=== PATIENT | male | born 1960 | race Caucasian/White ===

== ENCOUNTER 2017-02-05 16:09 | Inpatient (IN) | payer MEDICARE, OTHER ==
[2017-02-05] MEDS ORDERED: HYDROmorphone 1 MG/ML 1 ML SYRINGE IVP STA ×2 (17:04→18:59)
[2017-02-05] MEDS ORDERED: SODIUM CHLORIDE 0.9% 1,000 ML IV STA (17:04)
--- NOTE | 2017-02-05 17:16 | ED ---
General Adult HPI - General Source: patient, RN notes reviewed Mode of arrival: wheelchair Limitations: no limitations <Cathy Dow - Last Filed: 02/05/17 18:55> <Timmy Chen - Last Filed: 02/05/17 19:01> - General Chief complaint: Urogenital Stated complaint: Abd/Groin Pain Time Seen by Provider: 02/05/17 16:47 - History of Present Illness Initial comments: 56 yo male presents to the ER with cc of testicular pain. Patient states this started 2 nights ago. Patient states this progressed to becoming more swollen and red. Patient states he went to his family care doctor he was referred to the emergency department. Patient states it is painful. Patient states he was moving something heavy prior to this starting. Patient does admit to a history of back surgery was informed that he will be at increased risk for hernia. They were concerned due to the increased redness and swelling. That they should be seen.Patient denies any recent fever, chills, shortness of breath, chest pain, back pain, abdominal pain, nausea vomiting, numbness or tingling, dysuria or hematuria, constipation or diarrhea, headaches or visual changes, or any other current symptoms. (Cathy Dow) - Related Data Home Medications Medication Instructions Recorded Confirmed HYDROcodone/APAP 5-325MG [[place] 1 tab PO TID PRN 03/27/14 02/05/17 5-325] Montelukast [Singulair] 10 mg PO DAILY 01/07/15 02/05/17 Lisinopril [Zestril] 10 mg PO DAILY 05/22/16 02/05/17 amLODIPine [Norvasc] 10 mg PO DAILY 05/23/16 02/05/17 Tamsulosin HCl [Flomax] 0.4 mg PO DAILY 06/12/16 02/05/17 Gabapentin 600 mg PO Q8H 02/05/17 02/05/17 Venlafaxine HCl ER [Effexor XR] 75 mg PO HS 02/05/17 02/05/17 traMADol HCl [Ultram] 50 - 100 mg PO Q6H PRN 02/05/17 02/05/17 Allergies Allergy/AdvReac Type Severity Reaction Status Date / Time prednisone Allergy Unknown Verified 02/05/17 17:08 azithromycin [From Zithromax] AdvReac yeast Verified 02/05/17 17:08 infection in throat Review of Systems ROS Other: All systems not noted in ROS Statement are negative. <Cathy Dow - Last Filed: 02/05/17 18:55> ROS Other: All systems not noted in ROS Statement are negative. <Timmy Chen - Last Filed: 02/05/17 19:01> ROS Statement: Those systems with pertinent positive or pertinent negative responses have been documented in the HPI. Past Medical History Past Medical History: Hypertension, Osteoarthritis (OA), Sleep Apnea/CPAP/BIPAP Additional Past Medical History / Comment(s): back pain, bulging discs in neck, ddd, spinal stenosis,scoliosis.shingles 5 years ago,doesn't use his cpap machine.neuropathy. History of Any Multi-Drug Resistant Organisms: None Reported Past Surgical History: Orthopedic Surgery, Tonsillectomy Additional Past Surgical History / Comment(s): R shoulder surgery, R knee surgery x 2, sinus surg.lt shoulder, injections to neck/back, radio frequency tx. Past Anesthesia/Blood Transfusion Reactions: Previous Problems w/ Anesthesia Additional Past Anesthesia/Blood Transfusion Reaction / Comment(s): had panic attack when waking up from last shoulder surg., was told it was because of nerve block Past Psychological History: Depression Additional Psychological History / Comment(s): lives with his radha tristan and his mother who has dementia. pt has had several recnt family members pass away has some depression/sadness over this. Smoking Status: Never smoker Past Alcohol Use History: None Reported Additional Past Alcohol Use History / Comment(s): occ smokes a cigarello Past Drug Use History: None Reported - Past Family History Mother Family Medical History: Dementia, Hypertension Additional Family Medical History / Comment(s): irregular heart beat, neuropathy Father Family Medical History: Myocardial Infarction ([place]) <Cathy Dow - Last Filed: 02/05/17 18:55> General Exam Limitations: no limitations General appearance: alert, in no apparent distress ENT exam: Present: normal exam, mucous membranes moist Neck exam: Present: normal inspection. Absent: tenderness, meningismus, lymphadenopathy Respiratory exam: Present: normal lung sounds bilaterally. Absent: respiratory distress, wheezes, rales, rhonchi, stridor Cardiovascular Exam: Present: regular rate, normal rhythm, normal heart sounds. Absent: systolic murmur, diastolic murmur, rubs, gallop, clicks GI/Abdominal exam: Present: soft, normal bowel sounds. Absent: distended, tenderness, guarding, rebound, rigid exam: Present: testicular tenderness, scrotal swelling, vertical testicular lie, circumcision, other (Testicle on the left is increased in size warm red and swollen) Neurological exam: Present: alert, oriented X3 Psychiatric exam: Present: normal affect, normal mood <Cathy Dow - Last Filed: 02/05/17 18:55> Medical Decision Making - Lab Data Result diagrams: 02/05/17 17:07 02/05/17 17:07 <Cathy Dow - Last Filed: 02/05/17 18:55> - Lab Data Result diagrams: 02/05/17 17:07 02/05/17 17:07 <Timmy Chen - Last Filed: 02/05/17 19:01> - Medical Decision Making 56-year-old male presents emergency Department chief complaint testicular pain. At this time the patient does appear to be sepsis due to a scrotal cellulitis. This time we will start patient on antibiotics. At this time we will consult urology and have the patient admitted to Dr. Mulligan. This was discussed the patient is in agreement with the plan. (Cathy Dow) Patient reevaluated by myself, Dr. Chen. Patient resting comfortably in bed. Patient complains of testicular discomfort. Patient states gradual onset over 2 -3 days. Patient has moderate scrotal swelling with erythema and moderate tenderness. No signs of lesions. No subcutaneous emphysema. Case was discussed in detail with Dr. Mulligan who did see the patient earlier and will admit his patient. Case also discussed in detail with Dr. Taylor who will consult. He recommends gentamicin and ampicillin or Unasyn. Patient does meet sepsis criteria diagnosed at 650 p.m. (Timmy Chen) - Lab Data Lab Results 02/05/17 02/05/17 02/05/17 Range/Units 17:07 17: 17: WBC 25.2 H* (3.8-10.6) k/uL RBC 4.65 (4.30-5.90) m/uL Hgb 13.8 (13.0-17.5) gm/dL Hct 41.5 (39.0-53.0) % MCV 89.4 (80.0-100.0) fL MCH 29.7 (25.0-35.0) pg MCHC 33.2 (31.0-37.0) g/dL RDW 12.7 (11.5-15.5) % Plt Count 349 (150-450) k/uL Neutrophils % (Manual) 85.0 % Lymphocytes % (Manual) 5.5 % Monocytes % (Manual) 9.0 % Eosinophils % (Manual) 0.5 % Neutrophils # (Manual) 21.4 H (1.3-7.7) k/uL Lymphocytes # (Manual) 1.4 (1.0-4.8) k/uL Monocytes # (Manual) 2.3 H (0-1.0) k/uL Eosinophils # (Manual) 0.1 (0-0.7) k/uL Nucleated RBCs 0 (0-0) /100 WBC Manual Slide Review Performed RBC Morphology Normal Sodium 137 (137-145) mmol/L Potassium 4.3 (3.5-5.1) mmol/L Chloride 104 (98-107) mmol/L Carbon Dioxide 25 (22-30) mmol/L Anion Gap 8 mmol/L BUN 10 (9-20) mg/dL Creatinine 0.80 (0.66-1.25) mg/dL Est GFR (MDRD) Af Amer >60 (>60 ml/min/1.73 sqM) Est GFR (MDRD) Non-Af >60 (>60 ml/min/1.73 sqM) Glucose 108 H (74-99) mg/dL Plasma Lactic Acid Andres 1.7 (0.7-2.0) mmol/L Calcium 9.0 (8.4-10.2) mg/dL Total Bilirubin 1.4 H (0.2-1.3) mg/dL AST 19 (17-59) U/L ALT 29 (21-72) U/L Alkaline Phosphatase 94 (38-126) U/L Total Protein 6.8 (6.3-8.2) g/dL Albumin 3.8 (3.5-5.0) g/dL Urine Color Urine Appearance (Clear) Urine pH (5.0-8.0) Ur Specific Anna (1.001-1.035) Urine Protein (Negative) Urine Glucose (UA) (Negative) Urine Ketones (Negative) Urine Blood (Negative) Urine Nitrite (Negative) Urine Bilirubin (Negative) Urine Urobilinogen (<2.0) mg/dL Ur Leukocyte Esterase (Negative) Urine RBC (0-5) /hpf Urine WBC (0-5) /hpf Ur Squamous Epith Cells (0-4) /hpf Amorphous Sediment (None) /hpf Urine Mucus (None) /hpf 02/05/17 Range/Units 17:15 WBC (3.8-10.6) k/uL RBC (4.30-5.90) m/uL Hgb (13.0-17.5) gm/dL Hct (39.0-53.0) % MCV (80.0-100.0) fL MCH (25.0-35.0) pg MCHC (31.0-37.0) g/dL RDW (11.5-15.5) % Plt Count (150-450) k/uL Neutrophils % (Manual) % Lymphocytes % (Manual) % Monocytes % (Manual) % Eosinophils % (Manual) % Neutrophils # (Manual) (1.3-7.7) k/uL Lymphocytes # (Manual) (1.0-4.8) k/uL Monocytes # (Manual) (0-1.0) k/uL Eosinophils # (Manual) (0-0.7) k/uL Nucleated RBCs (0-0) /100 WBC Manual Slide Review RBC Morphology Sodium (137-145) mmol/L Potassium (3.5-5.1) mmol/L Chloride (98-107) mmol/L Carbon Dioxide (22-30) mmol/L Anion Gap mmol/L BUN (9-20) mg/dL Creatinine (0.66-1.25) mg/dL Est GFR (MDRD) Af Amer (>60 ml/min/1.73 sqM) Est GFR (MDRD) Non-Af (>60 ml/min/1.73 sqM) Glucose (74-99) mg/dL Plasma Lactic Acid Andres (0.7-2.0) mmol/L Calcium (8.4-10.2) mg/dL Total Bilirubin (0.2-1.3) mg/dL AST (17-59) U/L ALT (21-72) U/L Alkaline Phosphatase (38-126) U/L Total Protein (6.3-8.2) g/dL Albumin (3.5-5.0) g/dL Urine Color Yellow Urine Appearance Cloudy (Clear) Urine pH 6.0 (5.0-8.0) Ur Specific Anna 1.026 (1.001-1.035) Urine Protein 1+ H (Negative) Urine Glucose (UA) Negative (Negative) Urine Ketones Negative (Negative) Urine Blood Moderate H (Negative) Urine Nitrite Negative (Negative) Urine Bilirubin Negative (Negative) Urine Urobilinogen 2.0 (<2.0) mg/dL Ur Leukocyte Esterase Moderate H (Negative) Urine RBC 18 H (0-5) /hpf Urine WBC 87 H (0-5) /hpf Ur Squamous Epith Cells 2 (0-4) /hpf Amorphous Sediment Rare H (None) /hpf Urine Mucus Many H (None) /hpf Disposition Time of Disposition: 18:49 Decision Date: 02/05/17 Decision Time: 18:49 <Cathy Dow - Last Filed: 02/05/17 18:55> <Timmy Chen - Last Filed: 02/05/17 19:01> Clinical Impression: Sepsis, Cellulitis of scrotum, Hydrocele in adult, UTI (urinary tract infection ) Disposition: ADMITTED IP TO THIS HOSP Condition: Stable Referrals: Nathaniel Mulligan MD [Primary Care Provider] - 1-2 days
[2017-02-05 17:29] LABS: CH 29.7; CHCM 33.3; HCT 41.5 % (39.0-53.0); HDW 2.19; HGB 13.8 gm/dL (13.0-17.5); MCH 29.7 pg (25.0-35.0); MCHC 33.2 g/dL (31.0-37.0); MCV 89.4 fL (80.0-100.0); Mean Platelet Volume 6.6; RBC 4.65 m/uL (4.30-5.90); RDW 12.7 % (11.5-15.5); WBC (Perox) 25.28
[2017-02-05 17:34] LABS: WBC 25.2 k/uL (3.8-10.6)
[2017-02-05 17:38] LABS: ALT 29 U/L (21-72); AST 19 U/L (17-59); Alkaline Phosphatase 94 U/L (38-126); Anion Gap 8 mmol/L; Blood Urea Nitrogen 10 mg/dL (9-20); Carbon Dioxide 25 mmol/L (22-30); Chloride 104 mmol/L (98-107); Glucose 108 mg/dL (74-99); Non-African American GFR(MDRD) >60 (>60 ml/min/1.73 sqM); Potassium 4.3 mmol/L (3.5-5.1); Sodium 137 mmol/L (137-145); Total Bilirubin 1.4 mg/dL (0.2-1.3); Total Protein 6.8 g/dL (6.3-8.2)
[2017-02-05 17:46] LABS: Amorphous Sediment,Urine Rare /hpf; Appearance,Urine Cloudy (Clear); Bilirubin,Urine Negative (Negative); Glucose,Urine (UA) Negative (Negative); Ketones,Urine Negative (Negative); Leukocyte Esterase,Urine Moderate (Negative); Mucus,Urine Many /hpf; Nitrite,Urine Negative (Negative); Particle Count 16023; Protein,Urine 1+ (Negative); RBC,Urine 18 /hpf (0-5); Specific Gravity,Urine 1.026 (1.001-1.035); Squamous Epithelial Cell,Urine 2 /hpf (0-4); UA Billing (MACRO vs. MICRO) MICRO; WBC,Urine 87 /hpf (0-5)
[2017-02-05 18:11] LABS: Add Differential Manual Differential
[2017-02-05 18:14] LABS: Nucleated Red Blood Cells 0 /100 WBC (0-0); Total Cells Counted 200
[2017-02-05 18:15] LABS: Manual Review Performed; RBC Morphology Normal
--- NOTE | 2017-02-05 18:19 | US ---
EXAMINATION TYPE: US SCROTUM WITH DOPPLER. GRAYSCALE AND COLOR DOPPLER DUPLEX IMAGING PERFORMED OF T AZAR SCROTUM. DATE OF EXAM: 02/05/2017 5:48 PM COMPARISON: NONE CLINICAL HISTORY: PAIN. SWELLING BILATERALLY, PATIENT STATES MORE ON LEFT, H/O FEVER EXAM MEASUREMENTS: TESTICLES: Right Testicle: 5.7 x 3.5 x 2.5 cm Left Testicle: 4.7 x 3.6 x 3.2 cm EPIDIDYMIS HEAD: Right Epididymis: 1.5 cm - small epi cyst 0.2cm Left Epididymis: 1.5 cm Doppler performed to assess for testicular vascularity; good bilateral color flow and waveforms are s een. There is no evidence of testicular torsion. Presence of hydroceles: bilateral, small and noncomplicated on the contralateral right but rather pr ominent on the ipsilateral left with prominently septations which are uniformly thin and which do not demonstrate Doppler hyperperfusion. Presence of varicoceles: No IMPRESSION: 1. NEGATIVE FOR TESTICULAR TORSION. 2. PROMINENT LEFT-SIDED HYDROCELE NOTED.
[2017-02-05] MEDS ORDERED: AMPICILLIN-SULBACTAM 3 GM in SODIUM CHLORIDE 0.9% 100 ML IVPB STA (18:50)
[2017-02-05] MEDS ORDERED: ONDANSETRON 4 MG/2 ML VIAL IVP PRN (18:51)
[2017-02-05] MEDS ORDERED: NALOXONE 0.4 MG/ML 1 ML VIAL IV PRN (18:51)
[2017-02-05] MEDS ORDERED: ACETAMINOPHEN TAB 325 MG TAB PO PRN (18:51)
[2017-02-05] MEDS ORDERED: KETOROLAC 30 MG/ML 1 ML VIAL IVP STA (18:52)
[2017-02-05] MEDS ORDERED: GENTAMICIN PER PHARMACY MISCELLANE SCH (19:00)
[2017-02-05] MEDS: SODIUM CHLORIDE 0.9% 1,000 ML IV SCH (19:06)
[2017-02-05] MEDS ORDERED: GENTAMICIN 180 MG in SODIUM CHLORIDE 0.9% 100 ML IVPB STA (19:10)
--- NOTE | 2017-02-05 19:53 | XR ---
EXAMINATION TYPE: XR chest 2V DATE OF EXAM: 02/05/2017 6:57 PM COMPARISON: June 15, 2016 HISTORY: Cough TECHNIQUE: Frontal and lateral views of the chest are obtained. FINDINGS: There is no focal air space opacity, pleural effusion, or pneumothorax seen. The cardiac silhouette size is within normal limits. The osseous structures are intact. IMPRESSION: No acute cardiopulmonary process.
--- NOTE | 2017-02-05 19:54 | XR ---
EXAMINATION TYPE: XR pelvis AP view DATE OF EXAM: 02/05/2017 6:57 PM COMPARISON: NONE HISTORY: Left groin pain and swelling TECHNIQUE: 2 views FINDINGS: The bones and joints and soft tissues are unremarkable. Orthopedic spine hardware appears i ntact. IMPRESSION: No acute findings.
[2017-02-05] MEDS: HYDROmorphone 1 MG/ML 1 ML SYRINGE IV PRN (21:55)
[2017-02-05] MEDS: GABAPENTIN 300 MG CAP PO SCH (22:55)
[2017-02-05] MEDS: VENLAFAXINE HCL ER 75 MG CAP PO SCH (22:55)
[2017-02-06] MEDS: HYDROmorphone 1 MG/ML 1 ML SYRINGE IV PRN ×5 (00:53→20:23)
[2017-02-06] MEDS: GENTAMICIN 180 MG in SODIUM CHLORIDE 0.9% 100 ML IVPB SCH ×2 (05:14→14:34)
[2017-02-06] MEDS: SODIUM CHLORIDE 0.9% 1,000 ML IV SCH ×2 (05:15→16:06)
[2017-02-06] MEDS: GABAPENTIN 300 MG CAP PO SCH ×3 (07:59→23:34)
[2017-02-06] MEDS: amLODIPine 10 MG TAB PO SCH (08:00)
[2017-02-06] MEDS: LISINOPRIL 10 MG TAB PO SCH (08:00)
[2017-02-06] MEDS: TAMSULOSIN 0.4 MG CAP.ER.24H PO SCH (08:00)
[2017-02-06] MEDS ORDERED: ZOLPIDEM 5 MG TAB PO PRN (08:48)
--- NOTE | 2017-02-06 08:51 | P.HPIM ---
History of Present Illness H&P Date: 02/06/17 Chief Complaint: Scrotal swelling This is a history and physical for a white male who saw me yesterday and had significant scrotal swelling. I was worried about testicular torsion as he stated the swelling became worse the main the left. He had significant nausea. I could not ascertain true cremasterics reflex. He was evaluated in the emergency room and shown to have normal testicular vascularity. The patient then was admitted for appropriate cellulitis of the scrotal area. He has no ongoing history of hypertension and allergies seasonal. No chest pain.. No significant shortness of breath. Chest x-ray with pelvic x-ray was also done which was negative for any type of acute pathology. Urine culture is pending but he has significant urinary tract infection.He states that this occurred within the last 48-72 hours. We did think there was a possibility of torsion because it started after doing some repetitive lifting. Review of Systems Constitutional: Denies chills, Denies fever Eyes: denies blurred vision, denies pain Ears, nose, mouth and throat: Denies headache, Denies sore throat Cardiovascular: Denies chest pain, Denies shortness of breath Gastrointestinal: Denies abdominal pain, Denies diarrhea, Denies nausea, Denies vomiting Genitourinary: Reports as per HPI, Reports testicular pain Musculoskeletal: Denies myalgias Past Medical History Past Medical History: Hypertension, Osteoarthritis (OA), Sleep Apnea/CPAP/BIPAP Additional Past Medical History / Comment(s): back pain, bulging discs in neck, ddd, spinal stenosis,scoliosis.shingles 5 years ago,doesn't use his cpap machine.neuropathy. History of Any Multi-Drug Resistant Organisms: None Reported Past Surgical History: Orthopedic Surgery, Tonsillectomy Additional Past Surgical History / Comment(s): R and L shoulder surgery, R knee surgery x 2, sinus surg. injections to neck/back, radio frequency tx. Past Anesthesia/Blood Transfusion Reactions: Previous Problems w/ Anesthesia Additional Past Anesthesia/Blood Transfusion Reaction / Comment(s): had panic attack when waking up from last shoulder surg., was told it was because of nerve block Past Psychological History: Anxiety, Depression Additional Psychological History / Comment(s): lives with his radha tristan and his mother who has dementia. pt has had several recnt family members pass away has some depression/sadness over this. Smoking Status: Never smoker Past Alcohol Use History: None Reported Additional Past Alcohol Use History / Comment(s): occ smokes a cigarello Past Drug Use History: None Reported - Past Family History Mother Family Medical History: Dementia, Hypertension Additional Family Medical History / Comment(s): irregular heart beat, neuropathy Father Family Medical History: Myocardial Infarction ([place]) Medications and Allergies Home Medications Medication Instructions Recorded Confirmed Type HYDROcodone/APAP 5-325MG [[place] 1 tab PO TID PRN 03/27/14 02/05/17 History 5-325] Montelukast [Singulair] 10 mg PO DAILY 01/07/15 02/05/17 History Lisinopril [Zestril] 10 mg PO DAILY 05/22/16 02/05/17 History amLODIPine [Norvasc] 10 mg PO DAILY 05/23/16 02/05/17 History Tamsulosin HCl [Flomax] 0.4 mg PO DAILY 06/12/16 02/05/17 History Gabapentin 600 mg PO Q8H 02/05/17 02/05/17 History Venlafaxine HCl ER [Effexor XR] 75 mg PO HS 02/05/17 02/05/17 History traMADol HCl [Ultram] 50 - 100 mg PO Q6H PRN 02/05/17 02/05/17 History Allergies Allergy/AdvReac Type Severity Reaction Status Date / Time prednisone Allergy Unknown Verified 02/05/17 17:08 azithromycin [From Zithromax] AdvReac yeast Verified 02/05/17 17:08 infection in throat Physical Exam Vitals: Vital Signs Temp Pulse Pulse Resp BP BP Pulse Ox 02/06/17 07:00 99.6 F 74 20 114/63 94 L 02/06/17 05:59 99.2 F 02/06/17 04:00 101.4 F H 02/05/17 23:00 100.1 F H 79 18 131/75 96 02/05/17 20:30 98.5 F 75 18 135/75 95 02/05/17 19:46 98.3 F 71 18 147/76 97 02/05/17 19:08 71 18 147/78 97 Intake and Output 02/05/17 02/06/17 02/06/17 22:59 06:59 14:59 Other: Voiding Method Toilet # Voids 2 1 Results CBC & Chem 7: 02/05/17 17:07 02/05/17 17:07 Chest x-ray: report reviewed Abdominal x-ray: report reviewed Thrombosis Risk Factor Assmnt - Choose All That Apply Any of the Below Risk Factors Present?: Yes Each Factor Represents 1 point: Age 41-60 years, Obesity (BMI >25) Thrombosis Risk Factor Assessment Total Risk Factor Score: 2 Thrombosis Risk Factor Assessment Level: Low Risk Assessment and Plan (1) Cellulitis of scrotum Status: Acute (2) Hydrocele in adult Status: Acute (3) UTI (urinary tract infection) Status: Acute (4) Hypertension Status: Chronic Plan: Go ahead and start empiric antibiotic treatment. He is on gentamicin at this time we will go ahead and start Rocephin. Start Silvadene cream. Question need for infectious disease consult at this time. Check CBC and seemed in a.m. Reconcile home medications. Anticipate discharge of stabilizing the next 48-72 hours. Time with Patient: Less than 30
[2017-02-06 10:13] LABS: Basophils # (A) 0.1 k/uL (0-0.2); Basophils % (A) 0 %; CH 29.7; Eosinophils # (A) 0.2 k/uL (0-0.7); Eosinophils % (A) 1 %; HCT 39.3 % (39.0-53.0); HDW 2.18; HGB 13.3 gm/dL (13.0-17.5); Luc # (Auto) 0.31; Luc % (Auto) 1; Lymphocytes # (A) 1.8 k/uL (1.0-4.8); Lymphocytes % (A) 7 %; MCH 30.5 pg (25.0-35.0); MCHC 33.9 g/dL (31.0-37.0); MCV 90.1 fL (80.0-100.0); Mean Platelet Volume 6.5; Monocytes # (A) 1.2 k/uL (0-1.0); Monocytes % (A) 5 %; Neutrophils # (A) 20.9 k/uL (1.3-7.7); Neutrophils % (A) 85 %; RBC 4.35 m/uL (4.30-5.90); RDW 12.8 % (11.5-15.5); WBC 24.6 k/uL (3.8-10.6); WBC (Perox) 25.47
[2017-02-06 10:29] LABS: ALT 32 U/L (21-72); AST 24 U/L (17-59); Alkaline Phosphatase 99 U/L (38-126); Anion Gap 11 mmol/L; Blood Urea Nitrogen 8 mg/dL (9-20); Calcium 8.7 mg/dL (8.4-10.2); Carbon Dioxide 23 mmol/L (22-30); Chloride 103 mmol/L (98-107); Glucose 127 mg/dL (74-99); Non-African American GFR(MDRD) >60 (>60 ml/min/1.73 sqM); Sodium 137 mmol/L (137-145); Total Bilirubin 1.6 mg/dL (0.2-1.3)
--- NOTE | 2017-02-06 12:14 | P.GSCN ---
History of Present Illness Consult date: 02/06/17 History of present illness: This is a 56-year-old gentleman who came into the emergency room via Dr. Khoury office yesterday for a three-day history of significant testicular swelling and fever. The patient also had scrotal edema. In the emergency room he had blood work identified as well as a white count of 25,000. He had a urinalysis that looked abnormal. His scrotum was inflamed . The ultrasound showed a reactive hydrocele in the left He is admitted as a diagnosis of scrotal cellulitis. Emergency room contacted me last night and asked me about antibiotic coverage. I recommended gentamicin and ampicillin as broad-spectrum lower urinary tract coverage for a probable prostatitis/epididymitis. The patient has not had problems urinating. He was doing some significant heavy lifting during the acute development of the testicular pain and swelling. There is no evidence of testicular torsion. Patient has never seen a urologist. He urinates relatively well. He does have a chronically bad back. He is never had a urine infection nor incontinence. He is not on any medication to aid in voiding. Review of Systems - Constitutional Reports chills - Cardiovascular Denies chest pain, Denies shortness of breath - Respiratory Denies cough, Denies 7 - Genitourinary Reports as per HPI Past Medical History Past Medical History: Hypertension, Osteoarthritis (OA), Sleep Apnea/CPAP/BIPAP Additional Past Medical History / Comment(s): back pain, bulging discs in neck, ddd, spinal stenosis,scoliosis.shingles 5 years ago,doesn't use his cpap machine.neuropathy. History of Any Multi-Drug Resistant Organisms: None Reported Past Surgical History: Orthopedic Surgery, Tonsillectomy Additional Past Surgical History / Comment(s): R and L shoulder surgery, R knee surgery x 2, sinus surg. injections to neck/back, radio frequency tx. Past Anesthesia/Blood Transfusion Reactions: Previous Problems w/ Anesthesia Additional Past Anesthesia/Blood Transfusion Reaction / Comm: had panic attack when waking up from last shoulder surg., was told it was because of nerve block Past Psychological History: Anxiety, Depression Additional Psychological History / Comment(s): lives with his radha tristan and his mother who has dementia. pt has had several recnt family members pass away has some depression/sadness over this. Smoking Status: Never smoker Past Alcohol Use History: None Reported Additional Past Alcohol Use History / Comment(s): occ smokes a cigarello Past Drug Use History: None Reported - Past Family History Mother Family Medical History: Dementia, Hypertension Additional Family Medical History / Comment(s): irregular heart beat, neuropathy Father Family Medical History: Myocardial Infarction ([place]) Medications and Allergies Home Medications Medication Instructions Recorded Confirmed Type HYDROcodone/APAP 5-325MG [[place] 1 tab PO TID PRN 03/27/14 02/05/17 History 5-325] Montelukast [Singulair] 10 mg PO DAILY 01/07/15 02/05/17 History Lisinopril [Zestril] 10 mg PO DAILY 05/22/16 02/05/17 History amLODIPine [Norvasc] 10 mg PO DAILY 05/23/16 02/05/17 History Tamsulosin HCl [Flomax] 0.4 mg PO DAILY 06/12/16 02/05/17 History Gabapentin 600 mg PO Q8H 02/05/17 02/05/17 History Venlafaxine HCl ER [Effexor XR] 75 mg PO HS 02/05/17 02/05/17 History traMADol HCl [Ultram] 50 - 100 mg PO Q6H PRN 02/05/17 02/05/17 History Allergies Allergy/AdvReac Type Severity Reaction Status Date / Time prednisone Allergy Unknown Verified 02/05/17 17:08 azithromycin [From Zithromax] AdvReac yeast Verified 02/05/17 17:08 infection in throat Surgical - Exam Vital Signs Temp Pulse Resp BP Pulse Ox 99.9 F H 90 20 123/70 97 02/05/17 16:28 02/05/17 16:28 02/05/17 16:28 02/05/17 16:28 02/05/17 16:28 - General well developed, well nourished, no distress - Eyes PERRL - ENT no hearing loss - Neck no masses, trachea midline - Respiratory normal expansion, normal respiratory effort - Cardiovascular Rhythm: regular - Abdomen Abdomen: soft, non tender Hernia: none - Genitourinary Penis is circumcised. The left hemiscrotum is inflamed and slightly indurated. There is no crepitus. It is difficult to feel the testicle due to the induration. There is no obvious fluctuance. The right Testicle and scrotum are unremarkable. - Integumentary no rash, no growths - Neurologic normal coordination, normal sensation - Musculoskeletal normal posture - Psychiatric oriented to time, oriented to person, oriented to place, speech is normal, memory intact Results - Labs 02/06/17 09:44 02/06/17 09:41 Abnormal Lab Results - Last 24 Hours (Table) 02/06/17 02/06/17 Range/Units 09:41 09:44 WBC 24.6 H (3.8-10.6) k/uL Neutrophils # 20.9 H (1.3-7.7) k/uL Monocytes # 1.2 H (0-1.0) k/uL BUN 8 L (9-20) mg/dL Glucose 127 H (74-99) mg/dL Total Bilirubin 1.6 H (0.2-1.3) mg/dL Diabetes panel 02/06/17 Range/Units 09:41 Sodium 137 (137-145) mmol/L Potassium 4.0 (3.5-5.1) mmol/L Chloride 103 (98-107) mmol/L Carbon Dioxide 23 (22-30) mmol/L BUN 8 L (9-20) mg/dL Creatinine 0.75 (0.66-1.25) mg/dL Glucose 127 H (74-99) mg/dL Calcium 8.7 (8.4-10.2) mg/dL AST 24 (17-59) U/L ALT 32 (21-72) U/L Alkaline Phosphatase 99 (38-126) U/L Total Protein 7.0 (6.3-8.2) g/dL Albumin 3.8 (3.5-5.0) g/dL Calcium panel 02/06/17 Range/Units 09:41 Calcium 8.7 (8.4-10.2) mg/dL Albumin 3.8 (3.5-5.0) g/dL Pituitary panel 02/06/17 Range/Units 09:41 Sodium 137 (137-145) mmol/L Potassium 4.0 (3.5-5.1) mmol/L Chloride 103 (98-107) mmol/L Carbon Dioxide 23 (22-30) mmol/L BUN 8 L (9-20) mg/dL Creatinine 0.75 (0.66-1.25) mg/dL Glucose 127 H (74-99) mg/dL Calcium 8.7 (8.4-10.2) mg/dL Adrenal panel 02/06/17 Range/Units 09:41 Sodium 137 (137-145) mmol/L Potassium 4.0 (3.5-5.1) mmol/L Chloride 103 (98-107) mmol/L Carbon Dioxide 23 (22-30) mmol/L BUN 8 L (9-20) mg/dL Creatinine 0.75 (0.66-1.25) mg/dL Glucose 127 H (74-99) mg/dL Calcium 8.7 (8.4-10.2) mg/dL Total Bilirubin 1.6 H (0.2-1.3) mg/dL AST 24 (17-59) U/L ALT 32 (21-72) U/L Alkaline Phosphatase 99 (38-126) U/L Total Protein 7.0 (6.3-8.2) g/dL Albumin 3.8 (3.5-5.0) g/dL Assessment and Plan Plan: Impression: Acute left epididymal orchitis, prostatitis with secondary cellulitis. Reactive hydrocele Recommendations the patient is on azithromycin. A urine culture is pending. We 'll add ice and anti-inflammatories as well as scrotal elevation to the treatment. Observed to see if he responds to antibiotics and whether the reactive hydrocele gets infected or whether he'll need any abscess drainage.
[2017-02-06] MEDS ORDERED: GENTAMICIN TROUGH DUE 1 EACH MISC MISCELLANE ONE (13:00)
[2017-02-06] MEDS: IBUPROFEN 400 MG TAB PO PRN ×2 (13:08→21:58)
[2017-02-06] MEDS ORDERED: GENTAMICIN PEAK DUE 1 EACH MISC MISCELLANE ONE (15:30)
[2017-02-06] MEDS ORDERED: BISACODYL 5 MG TABLET.DR PO PRN (15:31)
[2017-02-06] MEDS: IBUPROFEN 800 MG TAB PO SCH ×2 (16:02→22:07)
[2017-02-06] MEDS: VENLAFAXINE HCL ER 75 MG CAP PO SCH (20:24)
[2017-02-06] MEDS: FAMOTIDINE 20 MG TAB PO SCH (20:24)
--- NOTE | 2017-02-06 22:17 | P.CONS ---
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 The patient had increasing amounts of pain and discomfort as well as erythema and he was impressed with how rapidly he was changing. He did seek care as a primary care office and then sent to the emergency center. Ultrasound was performed and there is evidence of adequate blood flow into the left testicle. Over evidence of significant infection was noted and he was admitted he's been seen by urology and infectious diseases consultation was requested regarding the significant infection in the area. The patient does take several medications at home and has difficulties with a recent back surgery. He has difficulties with urinary stream and does have to strain a bit. He relates he does not drink nearly enough water. And does drink too many energy drinks. He does not drink coffee or tea. He's had 1 prior minimal bout of epididymitis in the past that was treated with oral antibiotics without troubles No severe known history of prostate infection The patient relates that he does have a fianc however he is not sexually active in quite some time because of his back issues. But as noted does have difficulties with strength of his stream and sometimes has to strain quite a bit. He has had intermittent bouts also of constipation he thinks because of the medicine he takes because of his bad back. Review of Systems HEENT:Denies headache or acute visual change. Denies sinus or mouth discomforts. Denies neck stiffness or pain. Denies significant oral cavity pain. Denies difficulty on swallowing. Lungs: Denies significant shortness of breath, cough, sputum production, or hemoptysis. Cardiovascular: Denies significant shortness of breath, chest pain, chest wall pain, orthopnea, dyspnea on exertion, syncope Gastrointestinal:Denies nausea, vomiting, diarrhea, constipation, hematemesis, melena, hematochezia. No no significant change of bowel habit noticed. Musculoskeletal: Has chronic severe back pain. It does limit some of his activities. Does relate in the days before this started. He was out working in his yard. Was transferred clearing some branches in moving a step. Does not recall the activities cause him any significant scrotal pain or strain Skin: Denies new rash or lesions. No new ulcers or wounds are related.. Neuro: Denies headache or visual change. Denies any new onset weakness or difficulty with ambulation. Denies falls or seizures. Psychiatric:Denies anxiety or depression. Endocrine: Has fatigue without weight gain Urological is as per the HPI Past Medical History Past Medical History: Hypertension, Osteoarthritis (OA), Sleep Apnea/CPAP/BIPAP Additional Past Medical History / Comment(s): back pain, bulging discs in neck, ddd, spinal stenosis,scoliosis.shingles 5 years ago,doesn't use his cpap machine.neuropathy. History of Any Multi-Drug Resistant Organisms: None Reported Past Surgical History: Orthopedic Surgery, Tonsillectomy Additional Past Surgical History / Comment(s): R and L shoulder surgery, R knee surgery x 2, sinus surg. injections to neck/back, radio frequency tx. Past Anesthesia/Blood Transfusion Reactions: Previous Problems w/ Anesthesia Additional Past Anesthesia/Blood Transfusion Reaction / Comm: had panic attack when waking up from last shoulder surg., was told it was because of nerve block Past Psychological History: Anxiety, Depression Additional Psychological History / Comment(s): lives with his radha tristan and his mother who has dementia. pt has had several recent family members pass away has some depression/sadness over this. 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 History of experience no recent travels. No animal exposures. No new sexual contacts relates his been a while since he's been sexually active Smoking Status: Never smoker Past Alcohol Use History: None Reported Additional Past Alcohol Use History / Comment(s): occ smokes a cigarello Past Drug Use History: None Reported - Past Family History Mother Family Medical History: Dementia, Hypertension Additional Family Medical History / Comment(s): irregular heart beat, neuropathy Father Family Medical History: Myocardial Infarction ([place]) Medications and Allergies Home Medications and Allergies Comment(s): Current Medications Acetaminophen (Tylenol Tab) 650 mg PO Q6HR PRN PRN Reason: Mild Pain or Fever > 100.5 Last Admin: 02/06/17 04:13 Dose: 650 mg Hydrocodone Bitart/Acetaminophen (Bostic 5-325) 1 each PO Q4HR PRN PRN Reason: Moderate Pain Amlodipine Besylate (Norvasc) 10 mg PO DAILY DAISY Last Admin: 02/06/17 08:00 Dose: 10 mg Bisacodyl (Dulcolax) 10 mg PO DAILY PRN PRN Reason: Constipation Last Admin: 02/06/17 16:04 Dose: 10 mg Famotidine (Pepcid) 20 mg PO BID [facility] Last Admin: 02/06/17 20:24 Dose: 20 mg Gabapentin (Neurontin) 600 mg PO Q8HR [facility] Last Admin: 02/06/17 16:03 Dose: 600 mg Hydromorphone HCl (Dilaudid) 1 mg IV Q3HR PRN PRN Reason: Severe Pain Last Admin: 02/06/17 20:23 Dose: 1 mg Sodium Chloride (Saline 0.9%) 1,000 mls @ 100 mls/hr IV .Q10H [facility] Last Admin: 02/06/17 16:06 Dose: 100 mls/hr Ceftriaxone Sodium 1,000 mg/ (Sodium Chloride) 50 mls @ 100 mls/hr IVPB Q24HR [facility] Last Admin: 02/06/17 09:35 Dose: 100 mls/hr Gentamicin Sulfate 140 mg/ (Sodium Chloride) 103.5 mls @ 103.5 mls/hr IVPB Q8HR [facility] Ibuprofen (Motrin) 400 mg PO Q6HR PRN PRN Reason: Mild Pain or Fever > 100.5 Last Admin: 02/06/17 13:08 Dose: 400 mg Ibuprofen (Motrin) 800 mg PO TID [facility] Last Admin: 02/06/17 22:07 Dose: 800 mg Lisinopril (Zestril) 10 mg PO DAILY [facility] Last Admin: 02/06/17 08:00 Dose: 10 mg Naloxone HCl (Narcan) 0.2 mg IV Q2M PRN PRN Reason: Opioid Reversal Ondansetron HCl (Zofran) 4 mg IVP Q8HR PRN PRN Reason: Nausea And Vomiting Silver Sulfadiazine (Silvadene Cream) 1 applic TOPICAL DAILY [facility] Last Admin: 02/06/17 09:35 Dose: 1 applic Tamsulosin HCl (Flomax) 0.4 mg PO DAILY [facility] Last Admin: 02/06/17 08:00 Dose: 0.4 mg Venlafaxine HCl (Effexor Xr) 75 mg PO HS [facility] Last Admin: 02/06/17 20:24 Dose: 75 mg Zolpidem Tartrate (Ambien) 5 mg PO HS PRN PRN Reason: Insomnia Home Medications Medication Instructions Recorded Confirmed Type HYDROcodone/APAP 5-325MG [Bostic 1 tab PO TID PRN 03/27/14 02/05/17 History 5-325] Montelukast [Singulair] 10 mg PO DAILY 01/07/15 02/05/17 History Lisinopril [Zestril] 10 mg PO DAILY 05/22/16 02/05/17 History amLODIPine [Norvasc] 10 mg PO DAILY 05/23/16 02/05/17 History Tamsulosin HCl [Flomax] 0.4 mg PO DAILY 06/12/16 02/05/17 History Gabapentin 600 mg PO Q8H 02/05/17 02/05/17 History Venlafaxine HCl ER [Effexor XR] 75 mg PO HS 02/05/17 02/05/17 History traMADol HCl [Ultram] 50 - 100 mg PO Q6H PRN 02/05/17 02/05/17 History Allergies Allergy/AdvReac Type Severity Reaction Status Date / Time prednisone Allergy Unknown Verified 02/05/17 17:08 azithromycin [From Zithromax] AdvReac yeast Verified 02/05/17 17:08 infection in throat Physical Exam Vitals: Vital Signs Temp Pulse Resp BP Pulse Ox 02/06/17 16:00 89 20 02/06/17 15:00 99.3 F 89 20 105/59 94 L 02/06/17 08:00 74 20 02/06/17 07:00 99.6 F 74 20 114/63 94 L 02/06/17 05:59 99.2 F 02/06/17 04:00 101.4 F H 02/05/17 23:00 100.1 F H 79 18 131/75 96 Intake and Output 02/06/17 02/06/17 02/06/17 06:59 14:59 22:59 Intake Total 480 Balance 480 Intake: Oral 480 Other: Voiding Method Toilet Toilet # Voids 1 2 56-year-old male approximately 6 foot 2 and height of an appropriate build HEENT: Anicteric conjunctiva are pink and moist nasal mucosa grossly intact without significant lesions, there is no thrush. Neck: The neck is supple without significant lymphadenopathy or thyromegaly. Lungs: Good bilateral air entry without significant crackles or wheezing. There is no significant bronchial sounds. There is no egophony or dullness. Heart: Regular rate and rhythm with an audible S1-S2, no S3 no S4. There is no significant murmur click or rub, PMI was nondisplaced. Abdomen: Positive bowel sounds soft and nontender without palpable masses or organomegaly. There was no guarding or rebound. Extremities: The upper extremities have excellent pulses they are symmetric, no significant petechiae or telangiectasia. No splinter hemorrhages were noted. The lower extremities are free from significant edema. The peripheral pulses were 2+ and symmetric. Neuro: Awake alert oriented to person place and time. There are no acute new gross focal sensory motor deficits. Genitalia: Uncircumcised male without evidence of penile lesions Scrotum is markedly swollen especially to the left where there is distinct tenderness. Evidence of extensive swelling to the epididymis on the left. Right testicle is normal in size and nontender. There is tender lymphadenopathy to the left groin. Is minimal tenderness over the bladder Results CBC & Chem 7: 02/06/17 09:44 02/06/17 09:41 Labs: Abnormal Lab Results - Last 24 Hours (Table) 02/06/17 02/06/17 Range/Units 09:41 09:44 WBC 24.6 H (3.8-10.6) k/uL Neutrophils # 20.9 H (1.3-7.7) k/uL Monocytes # 1.2 H (0-1.0) k/uL BUN 8 L (9-20) mg/dL Glucose 127 H (74-99) mg/dL Total Bilirubin 1.6 H (0.2-1.3) mg/dL Laboratory Results WBC 24.6 k/uL (3.8-10.6) H 02/06/17 09:44 RBC 4.35 m/uL (4.30-5.90) 02/06/17 09:44 Hgb 13.3 gm/dL (13.0-17.5) 02/06/17 09:44 Hct 39.3 % (39.0-53.0) 02/06/17 09:44 MCV 90.1 fL (80.0-100.0) 02/06/17 09:44 MCH 30.5 pg (25.0-35.0) 02/06/17 09:44 MCHC 33.9 g/dL (31.0-37.0) 02/06/17 09:44 RDW 12.8 % (11.5-15.5) 02/06/17 09:44 Plt Count 329 k/uL (150-450) 02/06/17 09:44 Neutrophils % 85 % 02/06/17 09:44 Neutrophils % (Manual) 85.0 % 02/05/17 17:07 Lymphocytes % 7 % 02/06/17 09:44 Lymphocytes % (Manual) 5.5 % 02/05/17 17:07 Monocytes % 5 % 02/06/17 09:44 Monocytes % (Manual) 9.0 % 02/05/17 17:07 Eosinophils % 1 % 02/06/17 09:44 Eosinophils % (Manual) 0.5 % 02/05/17 17:07 Basophils % 0 % 02/06/17 09:44 Neutrophils # 20.9 k/uL (1.3-7.7) H 02/06/17 09:44 Neutrophils # (Manual) 21.4 k/uL (1.3-7.7) H 02/05/17 17:07 Lymphocytes # 1.8 k/uL (1.0-4.8) 02/06/17 09:44 Lymphocytes # (Manual) 1.4 k/uL (1.0-4.8) 02/05/17 17:07 Monocytes # 1.2 k/uL (0-1.0) H 02/06/17 09:44 Monocytes # (Manual) 2.3 k/uL (0-1.0) H 02/05/17 17:07 Eosinophils # 0.2 k/uL (0-0.7) 02/06/17 09:44 Eosinophils # (Manual) 0.1 k/uL (0-0.7) 02/05/17 17:07 Basophils # 0.1 k/uL (0-0.2) 02/06/17 09:44 Nucleated RBCs 0 /100 WBC (0-0) 02/05/17 17:07 Manual Slide Review Performed 02/05/17 17:07 RBC Morphology Normal 02/05/17 17:07 Sodium 137 mmol/L (137-145) 02/06/17 09:41 Potassium 4.0 mmol/L (3.5-5.1) 02/06/17 09:41 Chloride 103 mmol/L (98-107) 02/06/17 09:41 Carbon Dioxide 23 mmol/L (22-30) 02/06/17 09:41 Anion Gap 11 mmol/L 02/06/17 09:41 BUN 8 mg/dL (9-20) L 02/06/17 09:41 Creatinine 0.75 mg/dL (0.66-1.25) 02/06/17 09:41 Est GFR (MDRD) Af Amer >60 (>60 ml/min/1.73 sqM) 02/06/17 09:41 Est GFR (MDRD) Non-Af >60 (>60 ml/min/1.73 sqM) 02/06/17 09:41 Glucose 127 mg/dL (74-99) H 02/06/17 09:41 Plasma Lactic Acid Andres 1.7 mmol/L (0.7-2.0) 02/05/17 17:07 Calcium 8.7 mg/dL (8.4-10.2) 02/06/17 09:41 Total Bilirubin 1.6 mg/dL (0.2-1.3) H 02/06/17 09:41 AST 24 U/L (17-59) 02/06/17 09:41 ALT 32 U/L (21-72) 02/06/17 09:41 Alkaline Phosphatase 99 U/L (38-126) 02/06/17 09:41 Total Protein 7.0 g/dL (6.3-8.2) 02/06/17 09:41 Albumin 3.8 g/dL (3.5-5.0) 02/06/17 09:41 Urine Color Yellow 02/05/17 17:15 Urine Appearance Cloudy (Clear) 02/05/17 17:15 Urine pH 6.0 (5.0-8.0) 02/05/17 17:15 Ur Specific [place] 1.026 (1.001-1.035) 02/05/17 17:15 Urine Protein 1+ (Negative) H 02/05/17 17:15 Urine Glucose (UA) Negative (Negative) 02/05/17 17:15 Urine Ketones Negative (Negative) 02/05/17 17:15 Urine Blood Moderate (Negative) H 02/05/17 17:15 Urine Nitrite Negative (Negative) 02/05/17 17:15 Urine Bilirubin Negative (Negative) 02/05/17 17:15 Urine Urobilinogen 2.0 mg/dL (<2.0) 02/05/17 17:15 Ur Leukocyte Esterase Moderate (Negative) H 02/05/17 17:15 Urine RBC 18 /hpf (0-5) H 02/05/17 17:15 Urine WBC 87 /hpf (0-5) H 02/05/17 17:15 Ur Squamous Epith Cells 2 /hpf (0-4) 02/05/17 17:15 Amorphous Sediment Rare /hpf (None) H 02/05/17 17:15 Urine Mucus Many /hpf (None) H 02/05/17 17:15 Gentamicin Peak 6.2 ug/mL 02/06/17 17:12 Gentamicin Trough 1.2 ug/mL 02/06/17 13:18 Microbiology 02/05/17 18:55 Blood Blood Culture - Preliminary No Growth after 24 hours 02/05/17 17:15 Urine,Clean Catch Urine Culture - Preliminary Assessment and Plan (1) Epididymo-orchitis, acute Narrative/Plan: Pleasant 56-year-old male presents to hospital with the sudden onset of pain and swelling and discomfort to his scrotum especially to the left side. Present on relates that he did some activities outside is a weather was getting nicer does not recall any specific trauma to the scrotum or the groin. However does not drink a lot of fluid. He does take Claritin-D because of sinus congestion. He relates that he drinks power drinks such as energy drinks and does have a lot of dehydration issues. He does relate recently he's had some difficulties with passing his urinary stream and does not take tamsulosin every day. At this time it appears this been somewhat of a slow response to improvement. He is now using some elevation in cool packs to try to help the swelling and discomfort. Antibiotic therapy will be altered at this point time to piperacillin tazobactam. Given his age and lack of sexual activity with make underlying Enterobacteriae such as E. coli, or enterococcus or pseudomonas more likely. Zosyn will give us coverage of all these pathogens that ceftriaxone would not. Agree with limiting aminoglycoside exposure. Cultures are processors may further help direct her therapy Continue with maneuvers to help his discomfort Toradol will be added in attempts to further improve his significant discomfort. Status: Acute (2) Leukocytosis Status: Acute
[2017-02-06] MEDS: PIPERACILLIN-TAZOBACTAM 3.375 GM in DEXTROSE/WATER 1 50ML.BAG IVPB SCH (23:33)
[2017-02-06] MEDS: KETOROLAC 30 MG/ML 1 ML VIAL IVP SCH (23:34)
[2017-02-07] MEDS ORDERED: GENTAMICIN 140 MG in SODIUM CHLORIDE 0.9% 100 ML IVPB SCH ×2
[2017-02-07] MEDS: SODIUM CHLORIDE 0.9% 1,000 ML IV SCH ×3 (03:36→21:25)
[2017-02-07] MEDS: HYDROmorphone 1 MG/ML 1 ML SYRINGE IV PRN ×2 (03:36→16:47)
[2017-02-07] MEDS: KETOROLAC 30 MG/ML 1 ML VIAL IVP SCH ×4 (06:11→22:49)
--- NOTE | 2017-02-07 07:01 | P.PN ---
Subjective The patient was reevaluated this morning. The erythema and induration is less. He appears to have a reactive hydrocele and I hope it is not infected. He is afebrile and feeling better so I suspect not. He should continue with antibiotics. Objective - Vital Signs Vital signs: Vital Signs Temp 98.3 F 02/06/17 23:00 Pulse 68 02/06/17 23:00 Resp 18 02/06/17 23:00 BP 112/67 02/06/17 23:00 Pulse Ox 96 02/06/17 23:00 Intake & Output 02/06/17 02/07/17 02/07/17 18:59 06:59 18:59 Intake Total 480 520 Balance 480 520 Intake: Oral 480 520 Other: Voiding Method Toilet Toilet # Voids 2 2 - Labs CBC & Chem 7: 02/06/17 09:44 02/06/17 09:41 Labs: Abnormal Lab Results - Last 24 Hours (Table) 02/06/17 02/06/17 Range/Units 09:41 09:44 WBC 24.6 H (3.8-10.6) k/uL Neutrophils # 20.9 H (1.3-7.7) k/uL Monocytes # 1.2 H (0-1.0) k/uL BUN 8 L (9-20) mg/dL Glucose 127 H (74-99) mg/dL Total Bilirubin 1.6 H (0.2-1.3) mg/dL
[2017-02-07] MEDS: LISINOPRIL 10 MG TAB PO SCH (08:04)
[2017-02-07] MEDS: TAMSULOSIN 0.4 MG CAP.ER.24H PO SCH (08:05)
[2017-02-07] MEDS: IBUPROFEN 800 MG TAB PO SCH ×3 (08:05→21:25)
[2017-02-07] MEDS: FAMOTIDINE 20 MG TAB PO SCH ×2 (08:05→20:10)
[2017-02-07] MEDS: PIPERACILLIN-TAZOBACTAM 3.375 GM in DEXTROSE/WATER 1 50ML.BAG IVPB SCH ×3 (08:05→22:50)
[2017-02-07] MEDS: amLODIPine 10 MG TAB PO SCH (08:05)
[2017-02-07] MEDS: GABAPENTIN 300 MG CAP PO SCH ×3 (08:05→22:49)
--- NOTE | 2017-02-07 08:51 | P.PN ---
Subjective Principal diagnosis: Scrotal pain This is a continue present 56-year-old white male essentially been for scrotal cellulitis. Question reactive hydrocele. Appreciate ID and urology consultation. No significant new complaints. He still has significant edema. Induration seems to be about the same. No fever stated. No voiding difficulties. The patient now is on Zosyn. Objective - Vital Signs Vital signs: Vital Signs Temp 97.4 F L 02/07/17 07:00 Pulse 66 02/07/17 07:00 Resp 20 02/07/17 07:00 BP 97/60 02/07/17 07:00 Pulse Ox 97 02/07/17 07:00 Intake & Output 02/06/17 02/07/17 02/07/17 18:59 06:59 18:59 Intake Total 480 520 240 Balance 480 520 240 Intake: Oral 480 520 240 Other: Voiding Method Toilet Toilet # Voids 2 2 - Constitutional General appearance: Present: obese - EENT Eyes: Absent: abnormal pupil - Respiratory Respiratory: bilateral: CTA - Cardiovascular Rhythm: regular Heart sounds: normal: S1, S2 - Gastrointestinal General gastrointestinal: Present: soft. Absent: tenderness - Neurologic Neurologic: Present: CNII-XII intact - Musculoskeletal Musculoskeletal: Present: generalized weakness - Labs CBC & Chem 7: 02/06/17 09:44 02/06/17 09:41 Labs: Abnormal Lab Results - Last 24 Hours (Table) 02/06/17 02/06/17 Range/Units 09:41 09:44 WBC 24.6 H (3.8-10.6) k/uL Neutrophils # 20.9 H (1.3-7.7) k/uL Monocytes # 1.2 H (0-1.0) k/uL BUN 8 L (9-20) mg/dL Glucose 127 H (74-99) mg/dL Total Bilirubin 1.6 H (0.2-1.3) mg/dL Assessment and Plan (1) Cellulitis of scrotum Status: Acute (2) Hydrocele in adult Status: Acute (3) UTI (urinary tract infection) Status: Acute (4) Hypertension Status: Chronic Plan: Continue current regimen of antibiotics. Check CBC and CMP in a.m. We'll continue to follow.
[2017-02-07 09:26] LABS: CH 29.5; CHCM 32.4; HCT 36.2 % (39.0-53.0); HDW 2.19; HGB 12.1 gm/dL (13.0-17.5); MCH 30.6 pg (25.0-35.0); MCHC 33.5 g/dL (31.0-37.0); MCV 91.3 fL (80.0-100.0); Mean Platelet Volume 6.9; RBC 3.96 m/uL (4.30-5.90); RDW 12.8 % (11.5-15.5); WBC 21.1 k/uL (3.8-10.6)
[2017-02-07 09:49] LABS: ALT 58 U/L (21-72); AST 36 U/L (17-59); Alkaline Phosphatase 116 U/L (38-126); Anion Gap 10 mmol/L; Blood Urea Nitrogen 10 mg/dL (9-20); Calcium 8.7 mg/dL (8.4-10.2); Carbon Dioxide 28 mmol/L (22-30); Chloride 104 mmol/L (98-107); Glucose 163 mg/dL (74-99); Non-African American GFR(MDRD) >60 (>60 ml/min/1.73 sqM); Potassium 3.7 mmol/L (3.5-5.1); Sodium 142 mmol/L (137-145); Total Bilirubin 1.4 mg/dL (0.2-1.3); Total Protein 6.2 g/dL (6.3-8.2)
[2017-02-07 10:16] LABS: Hepatitis B Surface Ag Index 0.08
[2017-02-07 10:22] LABS: Hepatitis B Core IgM Index 0.04
[2017-02-07 10:34] LABS: Hepatitis C Virus IgG Index 0.01
[2017-02-07 10:37] LABS: Hepatitis C Virus IgG Ab Negative (Negative)
[2017-02-07] MEDS: VENLAFAXINE HCL ER 75 MG CAP PO SCH (20:11)
--- NOTE | 2017-02-07 22:35 | P.PN ---
Subjective Principal diagnosis: Pain and swelling to the left side of the scrotum Objective - Vital Signs Vital signs: Vital Signs Temp 98.1 F 02/07/17 22:05 Pulse 61 02/07/17 22:05 Resp 20 02/07/17 22:05 BP 127/72 02/07/17 22:05 Pulse Ox 100 02/07/17 22:05 Intake & Output 02/07/17 02/07/17 02/08/17 06:59 18:59 06:59 Intake Total 520 480 Balance 520 480 Intake: Oral 520 480 Other: Voiding Method Toilet Toilet Toilet # Voids 2 2 - Exam 56-year-old male approximately 6 foot 2 and height of an appropriate build HEENT: Anicteric conjunctiva are pink and moist nasal mucosa grossly intact without significant lesions, there is no thrush. Neck: The neck is supple without significant lymphadenopathy or thyromegaly. Lungs: Good bilateral air entry without significant crackles or wheezing. There is no significant bronchial sounds. There is no egophony or dullness. Heart: Regular rate and rhythm with an audible S1-S2, no S3 no S4. There is no significant murmur click or rub, PMI was nondisplaced. Abdomen: Positive bowel sounds soft and nontender without palpable masses or organomegaly. There was no guarding or rebound. Extremities: The upper extremities have excellent pulses they are symmetric, no significant petechiae or telangiectasia. No splinter hemorrhages were noted. The lower extremities are free from significant edema. The peripheral pulses were 2+ and symmetric. Neuro: Awake alert oriented to person place and time. There are no acute new gross focal sensory motor deficits. Genitalia: Uncircumcised male without evidence of penile lesions Scrotum is markedly swollen especially to the left where there is distinct tenderness. Evidence of extensive swelling to the epididymis on the left. Right testicle is normal in size and nontender. There is tender lymphadenopathy to the left groin. Is minimal tenderness over the bladder - Labs CBC & Chem 7: 02/07/17 08:46 02/07/17 08:46 Labs: Abnormal Lab Results - Last 24 Hours (Table) 02/07/17 02/07/17 Range/Units 08:46 08:46 WBC 21.1 H (3.8-10.6) k/uL RBC 3.96 L (4.30-5.90) m/uL Hgb 12.1 L (13.0-17.5) gm/dL Hct 36.2 L (39.0-53.0) % Glucose 163 H (74-99) mg/dL Total Bilirubin 1.4 H (0.2-1.3) mg/dL Total Protein 6.2 L (6.3-8.2) g/dL Albumin 3.2 L (3.5-5.0) g/dL Laboratory Results WBC 21.1 k/uL (3.8-10.6) H 02/07/17 08:46 RBC 3.96 m/uL (4.30-5.90) L 02/07/17 08:46 Hgb 12.1 gm/dL (13.0-17.5) L 02/07/17 08:46 Hct 36.2 % (39.0-53.0) L 02/07/17 08:46 MCV 91.3 fL (80.0-100.0) 02/07/17 08:46 MCH 30.6 pg (25.0-35.0) 02/07/17 08:46 MCHC 33.5 g/dL (31.0-37.0) 02/07/17 08:46 RDW 12.8 % (11.5-15.5) 02/07/17 08:46 Plt Count 295 k/uL (150-450) 02/07/17 08:46 Neutrophils % 85 % 02/06/17 09:44 Neutrophils % (Manual) 85.0 % 02/05/17 17:07 Lymphocytes % 7 % 02/06/17 09:44 Lymphocytes % (Manual) 5.5 % 02/05/17 17:07 Monocytes % 5 % 02/06/17 09:44 Monocytes % (Manual) 9.0 % 02/05/17 17:07 Eosinophils % 1 % 02/06/17 09:44 Eosinophils % (Manual) 0.5 % 02/05/17 17:07 Basophils % 0 % 02/06/17 09:44 Neutrophils # 20.9 k/uL (1.3-7.7) H 02/06/17 09:44 Neutrophils # (Manual) 21.4 k/uL (1.3-7.7) H 02/05/17 17:07 Lymphocytes # 1.8 k/uL (1.0-4.8) 02/06/17 09:44 Lymphocytes # (Manual) 1.4 k/uL (1.0-4.8) 02/05/17 17:07 Monocytes # 1.2 k/uL (0-1.0) H 02/06/17 09:44 Monocytes # (Manual) 2.3 k/uL (0-1.0) H 02/05/17 17:07 Eosinophils # 0.2 k/uL (0-0.7) 02/06/17 09:44 Eosinophils # (Manual) 0.1 k/uL (0-0.7) 02/05/17 17:07 Basophils # 0.1 k/uL (0-0.2) 02/06/17 09:44 Nucleated RBCs 0 /100 WBC (0-0) 02/05/17 17:07 Manual Slide Review Performed 02/05/17 17:07 RBC Morphology Normal 02/05/17 17:07 Sodium 142 mmol/L (137-145) 02/07/17 08:46 Potassium 3.7 mmol/L (3.5-5.1) 02/07/17 08:46 Chloride 104 mmol/L (98-107) 02/07/17 08:46 Carbon Dioxide 28 mmol/L (22-30) 02/07/17 08:46 Anion Gap 10 mmol/L 02/07/17 08:46 BUN 10 mg/dL (9-20) 02/07/17 08:46 Creatinine 0.76 mg/dL (0.66-1.25) 02/07/17 08:46 Est GFR (MDRD) Af Amer >60 (>60 ml/min/1.73 sqM) 02/07/17 08:46 Est GFR (MDRD) Non-Af >60 (>60 ml/min/1.73 sqM) 02/07/17 08:46 Glucose 163 mg/dL (74-99) H 02/07/17 08:46 Plasma Lactic Acid Anders 1.7 mmol/L (0.7-2.0) 02/05/17 17:07 Calcium 8.7 mg/dL (8.4-10.2) 02/07/17 08:46 Total Bilirubin 1.4 mg/dL (0.2-1.3) H 02/07/17 08:46 AST 36 U/L (17-59) 02/07/17 08:46 ALT 58 U/L (21-72) 02/07/17 08:46 Alkaline Phosphatase 116 U/L (38-126) 02/07/17 08:46 Total Protein 6.2 g/dL (6.3-8.2) L 02/07/17 08:46 Albumin 3.2 g/dL (3.5-5.0) L 02/07/17 08:46 Urine Color Yellow 02/05/17 17:15 Urine Appearance Cloudy (Clear) 02/05/17 17:15 Urine pH 6.0 (5.0-8.0) 02/05/17 17:15 Ur Specific [place] 1.026 (1.001-1.035) 02/05/17 17:15 Urine Protein 1+ (Negative) H 02/05/17 17:15 Urine Glucose (UA) Negative (Negative) 02/05/17 17:15 Urine Ketones Negative (Negative) 02/05/17 17:15 Urine Blood Moderate (Negative) H 02/05/17 17:15 Urine Nitrite Negative (Negative) 02/05/17 17:15 Urine Bilirubin Negative (Negative) 02/05/17 17:15 Urine Urobilinogen 2.0 mg/dL (<2.0) 02/05/17 17:15 Ur Leukocyte Esterase Moderate (Negative) H 02/05/17 17:15 Urine RBC 18 /hpf (0-5) H 02/05/17 17:15 Urine WBC 87 /hpf (0-5) H 02/05/17 17:15 Ur Squamous Epith Cells 2 /hpf (0-4) 02/05/17 17:15 Amorphous Sediment Rare /hpf (None) H 02/05/17 17:15 Urine Mucus Many /hpf (None) H 02/05/17 17:15 Gentamicin Peak 6.2 ug/mL 02/06/17 17:12 Gentamicin Trough 1.2 ug/mL 02/06/17 13:18 Hepatitis A IgM Ab NEGATIVE 02/07/17 08:46 Hep Bs Antigen Negative 02/07/17 08:46 Hep B Core IgM Ab NEGATIVE 02/07/17 08:46 Hep C IgG Ab Negative (Negative) 02/07/17 08:46 Microbiology 02/05/17 18:55 Blood Blood Culture - Preliminary No Growth after 48 hours 02/05/17 17:15 Urine,Clean Catch Urine Culture - Preliminary Gram Neg Bacilli Assessment and Plan (1) Epididymo-orchitis, acute Narrative/Plan: Pleasant 56-year-old male presents to hospital with the sudden onset of pain and swelling and discomfort to his scrotum especially to the left side. Present on relates that he did some activities outside is a weather was getting nicer does not recall any specific trauma to the scrotum or the groin. However does not drink a lot of fluid. He does take Claritin-D because of sinus congestion. He relates that he drinks power drinks such as energy drinks and does have a lot of dehydration issues. He does relate recently he's had some difficulties with passing his urinary stream and does not take tamsulosin every day. At this time it appears this been somewhat of a slow response to improvement. He is now using some elevation in cool packs to try to help the swelling and discomfort. Antibiotic therapy will be altered at this point time to piperacillin tazobactam. Given his age and lack of sexual activity with make underlying Enterobacteriae such as E. coli, or enterococcus or pseudomonas more likely. Zosyn will give us coverage of all these pathogens that ceftriaxone would not. Agree with limiting aminoglycoside exposure. Cultures are processors may further help direct her therapy Continue with maneuvers to help his discomfort Toradol will be added in attempts to further improve his significant discomfort. Concerns are answered Status: Acute (2) Leukocytosis Status: Acute
[2017-02-08] MEDS: HYDROmorphone 1 MG/ML 1 ML SYRINGE IV PRN (05:13)
[2017-02-08] MEDS: KETOROLAC 30 MG/ML 1 ML VIAL IVP SCH ×4 (06:27→23:54)
--- NOTE | 2017-02-08 07:33 | P.PN ---
Subjective The patient is in the hospital with an epididymal orchitis, prostatitis and a reactive hydrocele on the left side he has been on antibiotics and seems to be slowly improving. His urine culture grew pseudomonas which is quite sensitive. Hopefully this hydrocele as reactive as the surgical correction of a noninfected hydroceles far easier than that of an infected hydrocele. Clinically he has been afebrile and is slowly improving. I would favor continued oral antibiotics for at least 4 weeks because of the prostatitis. I will follow him in order to make sure that her to call drainage is not required. From a urologic standpoint he can go home on Cipro 500 twice a day at any time and follow-up in my office in one week. Objective - Vital Signs Vital signs: Vital Signs Temp 98.1 F 02/07/17 22:05 Pulse 61 02/07/17 22:05 Resp 20 02/07/17 22:05 BP 127/72 02/07/17 22:05 Pulse Ox 100 02/07/17 22:05 Intake & Output 02/07/17 02/08/17 02/08/17 18:59 06:59 18:59 Intake Total 480 1040 Balance 480 1040 Intake: Oral 480 1040 Other: Voiding Method Toilet Toilet # Voids 2 1 - Labs CBC & Chem 7: 02/07/17 08:46 02/07/17 08:46 Labs: Abnormal Lab Results - Last 24 Hours (Table) 02/07/17 02/07/17 Range/Units 08:46 08:46 WBC 21.1 H (3.8-10.6) k/uL RBC 3.96 L (4.30-5.90) m/uL Hgb 12.1 L (13.0-17.5) gm/dL Hct 36.2 L (39.0-53.0) % Glucose 163 H (74-99) mg/dL Total Bilirubin 1.4 H (0.2-1.3) mg/dL Total Protein 6.2 L (6.3-8.2) g/dL Albumin 3.2 L (3.5-5.0) g/dL
[2017-02-08] MEDS: TAMSULOSIN 0.4 MG CAP.ER.24H PO SCH (08:04)
[2017-02-08] MEDS: LISINOPRIL 10 MG TAB PO SCH (08:04)
[2017-02-08] MEDS: IBUPROFEN 800 MG TAB PO SCH ×3 (08:04→21:58)
[2017-02-08] MEDS: PIPERACILLIN-TAZOBACTAM 3.375 GM in DEXTROSE/WATER 1 50ML.BAG IVPB SCH ×3 (08:04→23:54)
[2017-02-08] MEDS: GABAPENTIN 300 MG CAP PO SCH ×3 (08:04→23:55)
[2017-02-08] MEDS: amLODIPine 10 MG TAB PO SCH (08:04)
[2017-02-08] MEDS: FAMOTIDINE 20 MG TAB PO SCH ×2 (08:04→20:08)
[2017-02-08] MEDS: SODIUM CHLORIDE 0.9% 1,000 ML IV SCH ×2 (08:04→16:20)
[2017-02-08 09:10] LABS: CH 30.1; CHCM 33.1; HCT 33.2 % (39.0-53.0); HDW 2.25; HGB 11.3 gm/dL (13.0-17.5); MCH 30.9 pg (25.0-35.0); MCHC 33.9 g/dL (31.0-37.0); MCV 91.1 fL (80.0-100.0); Mean Platelet Volume 6.9; RBC 3.64 m/uL (4.30-5.90); RDW 12.7 % (11.5-15.5); WBC 14.4 k/uL (3.8-10.6)
[2017-02-08 09:34] LABS: ALT 100 U/L (21-72); AST 68 U/L (17-59); Alkaline Phosphatase 150 U/L (38-126); Anion Gap 10 mmol/L; Blood Urea Nitrogen 10 mg/dL (9-20); Calcium 8.3 mg/dL (8.4-10.2); Carbon Dioxide 26 mmol/L (22-30); Chloride 106 mmol/L (98-107); Glucose 132 mg/dL (74-99); Non-African American GFR(MDRD) >60 (>60 ml/min/1.73 sqM); Potassium 3.7 mmol/L (3.5-5.1); Sodium 142 mmol/L (137-145); Total Protein 5.9 g/dL (6.3-8.2)
--- NOTE | 2017-02-08 10:43 | P.PN ---
Subjective Principal diagnosis: Scrotal cellulitis with epididymal orchitis. This is a continue present 56-year-old white male essentially been for scrotal cellulitis. Question reactive hydrocele. Appreciate ID and urology consultation. No significant new complaints. He still has significant edema. Induration seems to be about the same. No fever stated. No voiding difficulties. The patient now is on Zosyn. Objective - Vital Signs Vital signs: Vital Signs Temp 97.4 F L 02/08/17 07:00 Pulse 61 02/08/17 07:00 Resp 16 02/08/17 07:00 BP 116/68 02/08/17 07:00 Pulse Ox 96 02/08/17 07:00 Intake & Output 02/07/17 02/08/17 02/08/17 18:59 06:59 18:59 Intake Total 480 1040 200 Balance 480 1040 200 Intake: Oral 480 1040 200 Other: Voiding Method Toilet Toilet Toilet # Voids 2 1 - Constitutional General appearance: Present: obese - EENT Eyes: Absent: abnormal pupil - Respiratory Respiratory: bilateral: CTA - Cardiovascular Rhythm: regular Heart sounds: normal: S1, S2 - Genitourinary Male genitourinary: scrotal edema - Integumentary Integumentary: Present: cellulitis - Labs CBC & Chem 7: 02/08/17 08:26 02/08/17 08:26 Labs: Abnormal Lab Results - Last 24 Hours (Table) 02/08/17 02/08/17 Range/Units 08:26 08:26 WBC 14.4 H (3.8-10.6) k/uL RBC 3.64 L (4.30-5.90) m/uL Hgb 11.3 L (13.0-17.5) gm/dL Hct 33.2 L (39.0-53.0) % Glucose 132 H (74-99) mg/dL Calcium 8.3 L (8.4-10.2) mg/dL AST 68 H (17-59) U/L ALT 100 H (21-72) U/L Alkaline Phosphatase 150 H (38-126) U/L Total Protein 5.9 L (6.3-8.2) g/dL Albumin 3.0 L (3.5-5.0) g/dL Assessment and Plan (1) Cellulitis of scrotum Status: Acute (2) Hydrocele in adult Status: Acute (3) UTI (urinary tract infection) Status: Acute (4) Hypertension Status: Chronic Plan: Continue penicillin/tazobactam at this time. We will probably transition to Cipro floxacillin in the a.m. Anticipate discharge in next [address] Daniel's group will be covering for the . Time with Patient: Less than 30
--- NOTE | 2017-02-08 17:52 | P.PN ---
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 The patient had increasing amounts of pain and discomfort as well as erythema and he was impressed with how rapidly he was changing. He did seek care as a primary care office and then sent to the emergency center. Ultrasound was performed and there is evidence of adequate blood flow into the left testicle. Over evidence of significant infection was noted and he was admitted he's been seen by urology and infectious diseases consultation was requested regarding the significant infection in the area. The patient does take several medications at home and has difficulties with a recent back surgery. He has difficulties with urinary stream and does have to strain a bit. He relates he does not drink nearly enough water. And does drink too many energy drinks. He does not drink coffee or tea. He's had 1 prior minimal bout of epididymitis in the past that was treated with oral antibiotics without troubles No severe known history of prostate infection The patient relates that he does have a fianc however he is not sexually active in quite some time because of his back issues. But as noted does have difficulties with strength of his stream and sometimes has to strain quite a bit. He has had intermittent bouts also of constipation he thinks because of the medicine he takes because of his bad back Feeling somewhat better at this time. But not at his baseline. Objective - Vital Signs Vital signs: Vital Signs Temp 98.3 F 02/08/17 15:00 Pulse 72 02/08/17 15:00 Resp 16 02/08/17 15:00 BP 126/72 02/08/17 15:00 Pulse Ox 95 02/08/17 15:00 Intake & Output 02/07/17 02/08/17 02/08/17 18:59 06:59 18:59 Intake Total 480 1040 440 Balance 480 1040 440 Intake: Oral 480 1040 440 Other: Voiding Method Toilet Toilet Toilet # Voids 2 1 3 - Exam 56-year-old male approximately 6 foot 2 and height of an appropriate build HEENT: Anicteric conjunctiva are pink and moist nasal mucosa grossly intact without significant lesions, there is no thrush. Neck: The neck is supple without significant lymphadenopathy or thyromegaly. Lungs: Good bilateral air entry without significant crackles or wheezing. There is no significant bronchial sounds. There is no egophony or dullness. Heart: Regular rate and rhythm with an audible S1-S2, no S3 no S4. There is no significant murmur click or rub, PMI was nondisplaced. Abdomen: Positive bowel sounds soft and nontender without palpable masses or organomegaly. There was no guarding or rebound. Extremities: The upper extremities have excellent pulses they are symmetric, no significant petechiae or telangiectasia. No splinter hemorrhages were noted. The lower extremities are free from significant edema. The peripheral pulses were 2+ and symmetric. Neuro: Awake alert oriented to person place and time. There are no acute new gross focal sensory motor deficits. Genitalia: Uncircumcised male without evidence of penile lesions Scrotum is swollen especially to the left where there is distinct tenderness. Evidence of extensive swelling to the epididymis on the left. Right testicle is normal in size and nontender. There is tender lymphadenopathy to the left groin. Is minimal tenderness over the bladder - Labs CBC & Chem 7: 02/08/17 08:26 02/08/17 08:26 Labs: Abnormal Lab Results - Last 24 Hours (Table) 02/08/17 02/08/17 Range/Units 08:26 08:26 WBC 14.4 H (3.8-10.6) k/uL RBC 3.64 L (4.30-5.90) m/uL Hgb 11.3 L (13.0-17.5) gm/dL Hct 33.2 L (39.0-53.0) % Glucose 132 H (74-99) mg/dL Calcium 8.3 L (8.4-10.2) mg/dL AST 68 H (17-59) U/L ALT 100 H (21-72) U/L Alkaline Phosphatase 150 H (38-126) U/L Total Protein 5.9 L (6.3-8.2) g/dL Albumin 3.0 L (3.5-5.0) g/dL Laboratory Results WBC 14.4 k/uL (3.8-10.6) H 02/08/17 08:26 RBC 3.64 m/uL (4.30-5.90) L 02/08/17 08:26 Hgb 11.3 gm/dL (13.0-17.5) L 02/08/17 08:26 Hct 33.2 % (39.0-53.0) L 02/08/17 08:26 MCV 91.1 fL (80.0-100.0) 02/08/17 08:26 MCH 30.9 pg (25.0-35.0) 02/08/17 08:26 MCHC 33.9 g/dL (31.0-37.0) 02/08/17 08:26 RDW 12.7 % (11.5-15.5) 02/08/17 08:26 Plt Count 301 k/uL (150-450) 02/08/17 08:26 Neutrophils % 85 % 02/06/17 09:44 Neutrophils % (Manual) 85.0 % 02/05/17 17:07 Lymphocytes % 7 % 02/06/17 09:44 Lymphocytes % (Manual) 5.5 % 02/05/17 17:07 Monocytes % 5 % 02/06/17 09:44 Monocytes % (Manual) 9.0 % 02/05/17 17:07 Eosinophils % 1 % 02/06/17 09:44 Eosinophils % (Manual) 0.5 % 02/05/17 17:07 Basophils % 0 % 02/06/17 09:44 Neutrophils # 20.9 k/uL (1.3-7.7) H 02/06/17 09:44 Neutrophils # (Manual) 21.4 k/uL (1.3-7.7) H 02/05/17 17:07 Lymphocytes # 1.8 k/uL (1.0-4.8) 02/06/17 09:44 Lymphocytes # (Manual) 1.4 k/uL (1.0-4.8) 02/05/17 17:07 Monocytes # 1.2 k/uL (0-1.0) H 02/06/17 09:44 Monocytes # (Manual) 2.3 k/uL (0-1.0) H 02/05/17 17:07 Eosinophils # 0.2 k/uL (0-0.7) 02/06/17 09:44 Eosinophils # (Manual) 0.1 k/uL (0-0.7) 02/05/17 17:07 Basophils # 0.1 k/uL (0-0.2) 02/06/17 09:44 Nucleated RBCs 0 /100 WBC (0-0) 02/05/17 17:07 Manual Slide Review Performed 02/05/17 17:07 RBC Morphology Normal 02/05/17 17:07 Sodium 142 mmol/L (137-145) 02/08/17 08:26 Potassium 3.7 mmol/L (3.5-5.1) 02/08/17 08:26 Chloride 106 mmol/L (98-107) 02/08/17 08:26 Carbon Dioxide 26 mmol/L (22-30) 02/08/17 08:26 Anion Gap 10 mmol/L 02/08/17 08:26 BUN 10 mg/dL (9-20) 02/08/17 08:26 Creatinine 0.74 mg/dL (0.66-1.25) 02/08/17 08:26 Est GFR (MDRD) Af Amer >60 (>60 ml/min/1.73 sqM) 02/08/17 08:26 Est GFR (MDRD) Non-Af >60 (>60 ml/min/1.73 sqM) 02/08/17 08:26 Glucose 132 mg/dL (74-99) H 02/08/17 08:26 Plasma Lactic Acid Andres 1.7 mmol/L (0.7-2.0) 02/05/17 17:07 Calcium 8.3 mg/dL (8.4-10.2) L 02/08/17 08:26 Total Bilirubin 1.0 mg/dL (0.2-1.3) 02/08/17 08:26 AST 68 U/L (17-59) H 02/08/17 08:26 ALT 100 U/L (21-72) H 02/08/17 08:26 Alkaline Phosphatase 150 U/L (38-126) H 02/08/17 08:26 Total Protein 5.9 g/dL (6.3-8.2) L 02/08/17 08:26 Albumin 3.0 g/dL (3.5-5.0) L 02/08/17 08:26 Urine Color Yellow 02/05/17 17:15 Urine Appearance Cloudy (Clear) 02/05/17 17:15 Urine pH 6.0 (5.0-8.0) 02/05/17 17:15 Ur Specific [place] 1.026 (1.001-1.035) 02/05/17 17:15 Urine Protein 1+ (Negative) H 02/05/17 17:15 Urine Glucose (UA) Negative (Negative) 02/05/17 17:15 Urine Ketones Negative (Negative) 02/05/17 17:15 Urine Blood Moderate (Negative) H 02/05/17 17:15 Urine Nitrite Negative (Negative) 02/05/17 17:15 Urine Bilirubin Negative (Negative) 02/05/17 17:15 Urine Urobilinogen 2.0 mg/dL (<2.0) 02/05/17 17:15 Ur Leukocyte Esterase Moderate (Negative) H 02/05/17 17:15 Urine RBC 18 /hpf (0-5) H 02/05/17 17:15 Urine WBC 87 /hpf (0-5) H 02/05/17 17:15 Ur Squamous Epith Cells 2 /hpf (0-4) 02/05/17 17:15 Amorphous Sediment Rare /hpf (None) H 02/05/17 17:15 Urine Mucus Many /hpf (None) H 02/05/17 17:15 Gentamicin Peak 6.2 ug/mL 02/06/17 17:12 Gentamicin Trough 1.2 ug/mL 02/06/17 13:18 Hepatitis A IgM Ab NEGATIVE 02/07/17 08:46 Hep Bs Antigen Negative 02/07/17 08:46 Hep B Core IgM Ab NEGATIVE 02/07/17 08:46 Hep C IgG Ab Negative (Negative) 02/07/17 08:46 Microbiology 02/05/17 17:15 Urine,Clean Catch Urine Culture - Final Pseudomonas aeruginosa 02/05/17 18:55 Blood Blood Culture - Preliminary No Growth after 48 hours Assessment and Plan (1) Epididymo-orchitis, acute Narrative/Plan: Pleasant 56-year-old male presents to hospital with the sudden onset of pain and swelling and discomfort to his scrotum especially to the left side. Present on relates that he did some activities outside is a weather was getting nicer does not recall any specific trauma to the scrotum or the groin. However does not drink a lot of fluid. He does take Claritin-D because of sinus congestion. He relates that he drinks power drinks such as energy drinks and does have a lot of dehydration issues. He does relate recently he's had some difficulties with passing his urinary stream and does not take tamsulosin every day. At this time it appears this been somewhat of a slow response to improvement. He is now using some elevation in cool packs to try to help the swelling and discomfort. Antibiotic therapy will be altered at this point time to piperacillin tazobactam. Given his age and lack of sexual activity with make underlying Enterobacteriae such as E. coli, or enterococcus or pseudomonas more likely. Zosyn will give us coverage of all these pathogens that ceftriaxone would not. Agree with limiting aminoglycoside exposure. Cultures are processors may further help direct her therapy Continue with maneuvers to help his discomfort Toradol was added in attempts to further improve his significant discomfort. Concerns are answered Patient likely be ready for discharge home in the morning. Prescription ciprofloxacin is sent to his pharmacy complaining 28 days. He will following up with urologist in the outpatient setting. Once infection has settled likely will have drainage of the hydrocele. Patient is instructed to obtain a scrotal support when he goes home the more he lives the scrotum the faster will improve. He may continue with cool. The medications we prescribed as per the primary service. Status: Acute (2) Leukocytosis Status: Acute
[2017-02-08] MEDS: VENLAFAXINE HCL ER 75 MG CAP PO SCH (20:08)
[2017-02-08] MEDS: HYDROcodone/APAP 5-325MG 1 EACH TAB PO PRN (21:59)
[2017-02-09] MEDS: SODIUM CHLORIDE 0.9% 1,000 ML IV SCH (04:06)
[2017-02-09] MEDS: KETOROLAC 30 MG/ML 1 ML VIAL IVP SCH (06:07)
[2017-02-09 07:26] VITALS: BP 115/69; PULSE 66; RESP 20; TEMP 97.3
[2017-02-09] MEDS: PIPERACILLIN-TAZOBACTAM 3.375 GM in DEXTROSE/WATER 1 50ML.BAG IVPB SCH (08:47)
[2017-02-09] MEDS: LISINOPRIL 10 MG TAB PO SCH (08:48)
[2017-02-09] MEDS: IBUPROFEN 800 MG TAB PO SCH (08:48)
[2017-02-09] MEDS: amLODIPine 10 MG TAB PO SCH (08:48)
[2017-02-09] MEDS: FAMOTIDINE 20 MG TAB PO SCH (08:48)
[2017-02-09] MEDS: TAMSULOSIN 0.4 MG CAP.ER.24H PO SCH (08:48)
[2017-02-09] MEDS: GABAPENTIN 300 MG CAP PO SCH (08:49)
[2017-02-09] MEDS: HYDROcodone/APAP 5-325MG 1 EACH TAB PO PRN (08:52)
--- NOTE | 2017-02-09 09:04 | P.PN ---
Subjective The patient is in with epididymal orchitis, prostatitis on the left side. He has a reactive hydrocele. His white count was down to 14,000 unit he will go home on oral antibiotics. I will see him in the office in one week. Objective - Vital Signs Vital signs: Vital Signs Temp 97.3 F L 02/09/17 07:00 Pulse 66 02/09/17 07:00 Resp 20 02/09/17 07:00 BP 115/69 02/09/17 07:00 Pulse Ox 96 02/09/17 07:00 Intake & Output 02/08/17 02/09/17 02/09/17 18:59 06:59 18:59 Intake Total 440 900 Balance 440 900 Intake: Oral 440 900 Other: Voiding Method Toilet Toilet # Voids 3 1 - Labs CBC & Chem 7: 02/08/17 08:26 02/08/17 08:26 Labs: Abnormal Lab Results - Last 24 Hours (Table) 02/08/17 02/08/17 Range/Units 08:26 08:26 WBC 14.4 H (3.8-10.6) k/uL RBC 3.64 L (4.30-5.90) m/uL Hgb 11.3 L (13.0-17.5) gm/dL Hct 33.2 L (39.0-53.0) % Glucose 132 H (74-99) mg/dL Calcium 8.3 L (8.4-10.2) mg/dL AST 68 H (17-59) U/L ALT 100 H (21-72) U/L Alkaline Phosphatase 150 H (38-126) U/L Total Protein 5.9 L (6.3-8.2) g/dL Albumin 3.0 L (3.5-5.0) g/dL
--- NOTE | 2017-02-10 12:05 | DS ---
DATE OF ADMISSION: 02/05/2017 DATE OF DISCHARGE: 02/09/2017 56-year-old gentleman admitted with scrotal cellulitis and hydrocele. Urology and ID evaluated the patient. Patient is being discharged today on ciprofloxacin as recommended by infectious disease for about 28 days and will give Pepcid for GI prophylaxis as the patient will most probably take NSAIDs, either tramadol or ibuprofen at home. Patient's urine showed dorado sensitive Pseudomonas. Patient had Zosyn here and ID is recommending ciprofloxacin upon discharge. Patient was seen and examined on the day of discharge. Vital signs stable and normal physical examination except for genitourinary, patient still has significant scrotal swelling or redness. Patient was treated ( ). ASSESSMENT AND PLAN: 1. Cellulitis of the scrotum and epididymoorchitis. 2. Hydrocele. 3. Hypertension. Patient will be discharged today. Please refer to my ( ) summary for the list of discharge medications. DISCHARGE DIET: Cardiac. Activity as tolerated. Patient will follow with Dr. Nathaniel Mulligan in 3 to 7 days, Dr. Gustafson in a week and urology as scheduled. I spent greater than 35 minutes in total discharge process.
== END 2017-02-09 13:52 | disposition home or self-care (01) | DRG 728 ==
LOC: EC 16:09 → 4MS4W 18:58
PROVIDERS: ADMIT Family Medicine; ATTEND Family Medicine
DX: N45.3 Epididymo-orchitis (principal); N39.0 Urinary tract infection, site not specified; N49.2 Inflammatory disorders of scrotum; M41.9 Scoliosis, unspecified; I10 Essential (primary) hypertension; N43.3 Hydrocele, unspecified; N41.9 Inflammatory disease of prostate, unspecified; E86.0 Dehydration; G47.30 Sleep apnea, unspecified; M19.91 Primary osteoarthritis, unspecified site; F32.9 Major depressive disorder, single episode, unspecified; F41.0 Panic disorder [episodic paroxysmal anxiety]; K59.00 Constipation, unspecified; M48.00 Spinal stenosis, site unspecified; Z79.899 Other long term (current) drug therapy
CPT/HCPCS: 36415; 71020; 72170; 76870; 80053; 80074; 80170; 81001; 83605; 85025; 85027; 87040; 87077; 87086; 87186; 93975; 96361; 96365; 96375; 96376; 99285

== ENCOUNTER → 2017-02-14 | Outpatient (CLI) | payer MEDICARE, OTHER ==
[2017-02-14 11:02] LABS: Basophils # (A) 0.1 k/uL (0-0.2); Basophils % (A) 1 %; CH 29.8; CHCM 32.6; Eosinophils # (A) 0.2 k/uL (0-0.7); Eosinophils % (A) 3 %; HCT 37.3 % (39.0-53.0); HDW 2.35; HGB 11.9 gm/dL (13.0-17.5); Luc % (Auto) 2; Lymphocytes # (A) 1.7 k/uL (1.0-4.8); Lymphocytes % (A) 18 %; MCH 29.3 pg (25.0-35.0); MCV 91.7 fL (80.0-100.0); Mean Platelet Volume 6.6; Monocytes # (A) 0.7 k/uL (0-1.0); Monocytes % (A) 8 %; Neutrophils # (A) 6.4 k/uL (1.3-7.7); Neutrophils % (A) 69 %; RBC 4.07 m/uL (4.30-5.90); RDW 12.5 % (11.5-15.5); WBC 9.3 k/uL (3.8-10.6); WBC (Perox) 9.35
[2017-02-14 11:19] LABS: Anion Gap 11 mmol/L; Blood Urea Nitrogen 11 mg/dL (9-20); Calcium 9.1 mg/dL (8.4-10.2); Carbon Dioxide 24 mmol/L (22-30); Chloride 108 mmol/L (98-107); Glucose 96 mg/dL (74-99); Non-African American GFR(MDRD) >60 (>60 ml/min/1.73 sqM); Potassium 4.5 mmol/L (3.5-5.1); Sodium 143 mmol/L (137-145)
== END | disposition home or self-care (01) ==
LOC: LABPAT 10:17
PROVIDERS: ATTEND Urology
DX: Z01.818 Encounter for other preprocedural examination (principal); N49.2 Inflammatory disorders of scrotum
CPT/HCPCS: 80048; 85025

== ENCOUNTER 2017-02-15 10:47 | Day surgery (SDC) | payer MEDICARE, OTHER ==
[2017-02-14 11:22] VITALS: BMI 27.6
[~2017-02-15 10:47] MED LIST: DEXAMETHASONE SOD PHOSPHATE 10 MG/ML 1 ML VIAL IV ONE; HYDROmorphone 1 MG/ML 1 ML SYRINGE IVP PRN; LACTATED RINGERS 1,000 ML IV SCH; MIDAZOLAM 2 MG/2 ML VIAL IV PRN; ONDANSETRON 4 MG/2 ML VIAL IVP ONE; Pre Op ABX Message 1 EACH MISC MISCELLANE ONE; SCOPOLAMINE 1.5MG/72HR PATCH TRANSDERM ONE
[2017-02-15 11:08] VITALS: BP 123/82; PULSE 79; RESP 16; TEMP 97.8
[2017-02-15] MEDS ORDERED: LIDOCAINE 1% 20 ML VIAL (10MG/ML) FOR IV START INTRADERMA ONE (11:15)
--- NOTE | 2017-02-15 11:54 | P.PCN ---
Date of Procedure: 02/15/17 Preoperative Diagnosis: Epididymal orchitis, rule out infected scrotal fluid Postoperative Diagnosis: Same Procedure(s) Performed: Aspiration of hydrocele fluid left Anesthesia: local Surgeon: Mario Jules Pathology: other (Hydrocele fluid for culture) Indications for Procedure: The patient is a 57-year-old gentleman who is in the hospital last week with an acute epididymal orchitis, prostatitis. His white count was 25,000. His urine culture was positive. He had notable cellulitis of the scrotum. The question is whether the reactive hydrocele seen on ultrasound was infected or not. He continue with antibiotics and slowly improved his white count dropped to 14,000 however when he is seen in the office yesterday the skin was still quite inflamed and indurated. I figured hydrocele fluid was infected so I set him up for formal incision and drainage today. His white count yesterday hours down to 9000 I reinspected the scrotum today and inflammation looked little less therefore I will draw some fluid off to see if it looks infected so as to try to decide whether a surgical drainage will be required will be required Description of Procedure: The patient is prepped and draped sterilely on the left hemiscrotum. The skin was anesthetized with 1 mL of 1% Xylocaine plain. An 18-gauge needle and 20 mL of clear yellow fluid was drawn off. Some have been sent for culture. I drained approximately 100 mL of fluid off the scrotum. I can now feel the testicle and epididymis which are indurated. My suspicion is this is a reactive hydrocele on that at this point in time surgical drainage is not required and would actually be more difficult to heal. I will continue with the oral antibiotics and see him back in the office on Saturday. Pending the culture as a final recommendation. The patient will be discharged home this morning
--- NOTE | 2017-02-15 11:55 | P.DS ---
Providers Attending physician: Mario Jules Primary care physician: Stated None Hospital Course: The patient was to have a surgical drainage of a reactive hydrocele that I thought was infected however his white count was normal today and the physical examination was not as impressive. I did fluid aspiration to for culture. The fluid was clear yellow. He will continue with oral antibiotics. The surgery has been canceled. He'll follow-up in the office next week. He is discharged home on the same medication good condition Patient Condition at Discharge: Good Plan - Discharge Summary Discharge Medication List Montelukast [Singulair] 10 mg PO DAILY 01/07/15 [History] Lisinopril [Zestril] 10 mg PO DAILY 05/22/16 [History] Tamsulosin HCl [Flomax] 0.4 mg PO DAILY 06/12/16 [History] Gabapentin 600 mg PO Q8H 02/05/17 [History] Venlafaxine HCl ER [Effexor XR] 75 mg PO HS 02/05/17 [History] traMADol HCl [Ultram] 50 - 100 mg PO Q6H PRN 02/05/17 [History] Ciprofloxacin HCl [Cipro] 500 mg PO Q12HR #56 tablet 02/08/17 [Rx] Famotidine [Pepcid] 20 mg PO BID #30 tab 02/09/17 [Rx] amLODIPine [Norvasc] 5 mg PO DAILY #0 02/09/17 [Rx] HYDROcodone/APAP 7.5-325MG [Pateros 7.5-325] 1 tab PO Q6HR PRN 02/14/17 [History] Follow up Appointment(s)/Referral(s): Mario Jules MD [STAFF PHYSICIAN] - 02/19/17
== END 2017-02-15 12:25 | disposition home or self-care (01) ==
LOC: OR 10:47
PROVIDERS: ATTEND Urology
DX: N45.2 Orchitis (principal); N43.3 Hydrocele, unspecified; I10 Essential (primary) hypertension; M19.90 Unspecified osteoarthritis, unspecified site; F41.9 Anxiety disorder, unspecified; F32.9 Major depressive disorder, single episode, unspecified; G47.30 Sleep apnea, unspecified
CPT/HCPCS: 87070; 87205; 55899; J2405

== ENCOUNTER → 2017-03-19 | Outpatient (CLI) | payer MEDICARE, OTHER ==
--- NOTE | 2017-03-19 18:29 | US ---
EXAMINATION TYPE: US scrotum with doppler. Grayscale and color and spectral Doppler Duplex imaging p erformed of the scrotum. DATE OF EXAM: 03/19/2017 3:10 PM COMPARISON: us dated 05 February 2017 CLINICAL HISTORY: N43.0 ENCYSTED LEFT HYDROCELE. EXAM MEASUREMENTS: TESTICLES: Right Testicle: 5.0 x 2.3 x 2.7 cm Left Testicle: 4.5 x 2.6 x 2.8 cm. Left testis shows some possible mass effect due to surrounding so ft tissue EPIDIDYMIS HEAD: Right Epididymis: 0.9 cm, there is a right epididymal cyst measuring 2 mm Left Epididymis: not visualized Doppler performed to assess for testicular vascularity; good bilateral color flow and waveforms are s een. There is no evidence of testicular torsion. Presence of hydroceles: Right measuring 2.6 x 0.8 x 2.3cm In area of previous left hydrocele is what appears to be a consolidated fluid collection, no apparent vascularity Presence of varicoceles: unable to well asses left due to swelling, no varicocele seen on right Scrotal wall thickening is present IMPRESSION: There is presumably interval organization of left-sided hydrocele, there may be some mass effect on the testicle
== END | disposition home or self-care (01) ==
LOC: RADUSWWP 14:37
PROVIDERS: ATTEND Urology
DX: N43.0 Encysted hydrocele (principal); Z88.8 Allergy status to other drugs, medicaments and biological substances
CPT/HCPCS: 76870; 93975

== ENCOUNTER 2017-07-30 04:28 | Emergency (ER) | payer MEDICARE, OTHER ==
[2017-07-30] MEDS ORDERED: MORPHINE SULFATE 4 MG/ML SYRINGE IVP STA (04:55)
[2017-07-30] MEDS ORDERED: KETOROLAC 30 MG/ML 1 ML VIAL IVP STA (04:56)
--- NOTE | 2017-07-30 05:18 | ED ---
General Adult HPI - General Source: patient, family, RN notes reviewed Mode of arrival: ambulatory Limitations: no limitations <Porter Simms - Last Filed: 07/30/17 05:16> <Sheng Green - Last Filed: 07/30/17 07:47> - General Chief complaint: Back Pain/Injury Stated complaint: back/side pain Time Seen by Provider: 07/30/17 04:33 - History of Present Illness Initial comments: 57-year-old male presents with right upper back and flank pain. Sharp in nature , worse with movement. Patient does report helping his son move, he was carrying laundry up stairs and noticed worsening pain. He does admit that this pain started prior to this. He has a history of mechanical low back pain. He Has had surgery of his lumbar spine in the past. This pain is higher and more to the side and his normal low back pain. Patient does state he took a Flexeril prior to arrival and this is reduced the pain somewhat. Denies fever or chills. Denies hematuria. Denies nausea vomiting or diarrhea. (Porter Simms) - Related Data Home Medications Medication Instructions Recorded Confirmed Lisinopril [Zestril] 10 mg PO DAILY 05/22/16 07/30/17 Tamsulosin HCl [Flomax] 0.4 mg PO DAILY 06/12/16 07/30/17 Gabapentin 600 mg PO HS 02/05/17 07/30/17 Venlafaxine HCl ER [Effexor XR] 75 mg PO HS 02/05/17 07/30/17 HYDROcodone/APAP 7.5-325MG [Nellis 1 tab PO Q6HR PRN 02/14/17 07/30/17 7.5-325] Meloxicam [Mobic] 15 mg PO DAILY 07/30/17 07/30/17 amLODIPine [Norvasc] 10 mg PO DAILY 07/30/17 07/30/17 Allergies Allergy/AdvReac Type Severity Reaction Status Date / Time prednisone Allergy Itching Verified 07/30/17 07:40 azithromycin [From Zithromax] AdvReac yeast Verified 07/30/17 07:40 infection in throat Review of Systems ROS Other: All systems not noted in ROS Statement are negative. <Porter Simms - Last Filed: 07/30/17 05:16> ROS Other: All systems not noted in ROS Statement are negative. <NormaSheng B - Last Filed: 07/30/17 07:47> ROS Statement: Those systems with pertinent positive or pertinent negative responses have been documented in the HPI. Past Medical History Past Medical History: Hypertension, Osteoarthritis (OA), Prostate Disorder, Sleep Apnea/CPAP/BIPAP Additional Past Medical History / Comment(s): SCROTAL ABSCESS, FREQUENT NOSE BLEEDS, back pain, bulging discs in neck, ddd, spinal stenosis, scoliosis.shingles 5 years ago,doesn't use his cpap machine.neuropathy. History of Any Multi-Drug Resistant Organisms: None Reported Past Surgical History: Back Surgery, Orthopedic Surgery, Tonsillectomy Additional Past Surgical History / Comment(s): R and L shoulder surgery, R knee surgery x 2, sinus surg. injections to neck/back, radio frequency tx. HAS METAL IN BACK Past Anesthesia/Blood Transfusion Reactions: Previous Problems w/ Anesthesia Additional Past Anesthesia/Blood Transfusion Reaction / Comment(s): had panic attack when waking up from. shoulder surg, was told it was because of nerve block Past Psychological History: Anxiety, Depression Smoking Status: Current some day smoker Past Alcohol Use History: Occasional Past Drug Use History: None Reported - Past Family History Mother Family Medical History: Dementia, Hypertension Additional Family Medical History / Comment(s): irregular heart beat, neuropathy Father Family Medical History: Myocardial Infarction ([place]) <Porter Simms - Last Filed: 07/30/17 05:16> General Exam Limitations: no limitations <Porter Simms - Last Filed: 07/30/17 05:16> General appearance: alert, in no apparent distress Head exam: Present: atraumatic, normocephalic, normal inspection Eye exam: Present: normal appearance, PERRL, EOMI. Absent: scleral icterus, conjunctival injection, periorbital swelling ENT exam: Present: normal exam, mucous membranes moist Neck exam: Present: normal inspection. Absent: tenderness, meningismus, lymphadenopathy Respiratory exam: Present: normal lung sounds bilaterally. Absent: respiratory distress, wheezes, rales, rhonchi, stridor Cardiovascular Exam: Present: regular rate, normal rhythm, normal heart sounds. Absent: systolic murmur, diastolic murmur, rubs, gallop, clicks GI/Abdominal exam: Present: soft, normal bowel sounds. Absent: distended, tenderness, guarding, rebound, rigid Extremities exam: Present: normal inspection, full ROM, normal capillary refill. Absent: tenderness, pedal edema, joint swelling, calf tenderness Back exam: Present: normal inspection Neurological exam: Present: alert, oriented X3, CN II-XII intact Psychiatric exam: Present: normal affect, normal mood Skin exam: Present: warm, dry, intact, normal color. Absent: rash <Sheng Green - Last Filed: 07/30/17 07:47> Course <Porter Simms - Last Filed: 07/30/17 05:16> <Sheng Green - Last Filed: 07/30/17 07:47> Vital Signs 07/30/17 07/30/17 04:32 06:13 Temperature 98 F Pulse Rate 70 76 Respiratory 18 16 Rate Blood Pressure 190/89 146/90 O2 Sat by Pulse 99 98 Oximetry - Reevaluation(s) Reevaluation #1: 07/30/17 07:47 On reevaluation patient's resting comfortably, states his symptoms are improved (Sheng Green) Medical Decision Making <Porter Simms - Last Filed: 07/30/17 05:16> - Lab Data Result diagrams: 07/30/17 05:15 07/30/17 05:15 - Radiology Data Radiology results: report reviewed (CT abdomen and pelvis is negative for acute disease), image reviewed <Sheng Green - Last Filed: 07/30/17 07:47> - Medical Decision Making [address] [place] [address] for evaluation regarding back pain. CT is negative for any aortic injury, any kidney injury. Lab work is normal patient can be discharged home at this time with adequate pain control (Sheng Green) - Lab Data Lab Results 07/30/17 07/30/17 07/30/17 Range/Units 05:15 05:15 05:15 WBC 6.6 (3.8-10.6) k/uL RBC 4.35 (4.30-5.90) m/uL Hgb 13.6 (13.0-17.5) gm/dL Hct 39.4 (39.0-53.0) % MCV 90.6 (80.0-100.0) fL MCH 31.4 (25.0-35.0) pg MCHC 34.6 (31.0-37.0) g/dL RDW 12.9 (11.5-15.5) % Plt Count 285 (150-450) k/uL Sodium 138 (137-145) mmol/L Potassium 3.9 (3.5-5.1) mmol/L Chloride 105 (98-107) mmol/L Carbon Dioxide 22 (22-30) mmol/L Anion Gap 11 mmol/L BUN 12 (9-20) mg/dL Creatinine 0.70 (0.66-1.25) mg/dL Est GFR (MDRD) Af Amer >60 (>60 ml/min/1.73 sqM) Est GFR (MDRD) Non-Af >60 (>60 ml/min/1.73 sqM) Glucose 101 H (74-99) mg/dL Calcium 8.9 (8.4-10.2) mg/dL Total Bilirubin 0.5 (0.2-1.3) mg/dL AST 21 (17-59) U/L ALT 39 (21-72) U/L Alkaline Phosphatase 85 (38-126) U/L Total Protein 6.7 (6.3-8.2) g/dL Albumin 4.1 (3.5-5.0) g/dL Lipase 162 (23-300) U/L Urine Color Yellow Urine Appearance Clear (Clear) Urine pH 6.0 (5.0-8.0) Ur Specific Byron 1.015 (1.001-1.035) Urine Protein Negative (Negative) Urine Glucose (UA) Negative (Negative) Urine Ketones Negative (Negative) Urine Blood Trace H (Negative) Urine Nitrite Negative (Negative) Urine Bilirubin Negative (Negative) Urine Urobilinogen <2.0 (<2.0) mg/dL Ur Leukocyte Esterase Negative (Negative) Urine RBC 2 (0-5) /hpf Urine WBC <1 (0-5) /hpf Urine Mucus Rare H (None) /hpf Disposition <Porter Simms - Last Filed: 07/30/17 05:16> <Sheng Green - Last Filed: 07/30/17 07:47> Clinical Impression: Mechanical back pain, Strain of lumbar region, Fusion of lumbar spine Disposition: HOME SELF-CARE Condition: Good Instructions: Acute Low Back Pain (ED), Chronic Back Pain (ED) Referrals: Nathaniel Mulligan MD [Primary Care Provider] - 1-2 days
[2017-07-30 05:26] LABS: CH 29.9; CHCM 33.1; HCT 39.4 % (39.0-53.0); HDW 2.23; HGB 13.6 gm/dL (13.0-17.5); MCH 31.4 pg (25.0-35.0); MCHC 34.6 g/dL (31.0-37.0); MCV 90.6 fL (80.0-100.0); Mean Platelet Volume 7.2; RBC 4.35 m/uL (4.30-5.90); RDW 12.9 % (11.5-15.5); WBC 6.6 k/uL (3.8-10.6)
[2017-07-30 05:34] LABS: Appearance,Urine Clear (Clear); Bilirubin,Urine Negative (Negative); Glucose,Urine (UA) Negative (Negative); Ketones,Urine Negative (Negative); Leukocyte Esterase,Urine Negative (Negative); Mucus,Urine Rare /hpf; Nitrite,Urine Negative (Negative); Particle Count 466; Protein,Urine Negative (Negative); RBC,Urine 2 /hpf (0-5); Specific Gravity,Urine 1.015 (1.001-1.035); UA Billing (MACRO vs. MICRO) MICRO; Urobilinogen,Urine <2.0 mg/dL (<2.0); WBC,Urine <1 /hpf (0-5)
[2017-07-30 05:36] LABS: ALT 39 U/L (21-72); AST 21 U/L (17-59); Alkaline Phosphatase 85 U/L (38-126); Anion Gap 11 mmol/L; Blood Urea Nitrogen 12 mg/dL (9-20); Calcium 8.9 mg/dL (8.4-10.2); Carbon Dioxide 22 mmol/L (22-30); Chloride 105 mmol/L (98-107); Glucose 101 mg/dL (74-99); Non-African American GFR(MDRD) >60 (>60 ml/min/1.73 sqM); Potassium 3.9 mmol/L (3.5-5.1); Sodium 138 mmol/L (137-145); Total Bilirubin 0.5 mg/dL (0.2-1.3); Total Protein 6.7 g/dL (6.3-8.2)
--- NOTE | 2017-07-30 07:10 | CT ---
EXAM: CT Abdomen and Pelvis Without Intravenous Contrast CLINICAL HISTORY: Reason: Pain TECHNIQUE: Axial computed tomography images of the abdomen and pelvis without intravenous contrast. CTDI is 19.6 mGy and DLP is 963.2 mGy-cm. This CT exam was performed using one or more of the following dose reduction techniques: automated exposure control, adjustment of the mA and/or kV according to patient size, and/or use of iterative reconstruction technique. COMPARISON: 03/27/14 FINDINGS: Artifacts: Streak artifact from spinal hardware limits evaluation. Lower thorax: Bibasilar atelectasis/scarring in the visualized lung bases. Small hiatal hernia. ABDOMEN: Liver: Unremarkable. Gallbladder and bile ducts: Cholelithiasis. Contracted gallbladder. No ductal dilation. Pancreas: Unremarkable. No ductal dilation. Spleen: Unremarkable. No splenomegaly. Adrenals: Unremarkable. No mass. Kidneys and ureters: No renal calcification. Left peripelvic renal cysts, unchanged. No hydronephrosis. Stomach and bowel: Moderate retained stool seen throughout the large bowel. Nonspecific bowel gas pattern with mildly distended proximal small bowel loops. This is nonspecific and may represent focal ileus/enteritis. Appendix: Appendix not well-visualized. PELVIS: Bladder: Unremarkable. No stones. Reproductive: Enlarged prostate. ABDOMEN and PELVIS: Intraperitoneal space: Previously seen soft tissue stranding in the anterior peritoneal fat, decreased in conspicuity. No free air. No significant fluid collection. Bones/joints: See above. Soft tissues: Bilateral inguinal hernias containing fat, unchanged. Vasculature: Unremarkable. No abdominal aortic aneurysm. Lymph nodes: Unremarkable. No enlarged lymph nodes. IMPRESSION: Nonspecific bowel gas pattern. Findings which may reflect focal ileus No free fluid or free air. Cholelithiasis. No renal or ureteral calculus.
[2017-07-30 08:02] VITALS: BP 149/89; PULSE 85; RESP 18; TEMP 97.8
== END 2017-07-30 08:00 | disposition home or self-care (01) ==
LOC: EC 04:28
DX: S39.012A Strain of muscle, fascia and tendon of lower back, initial encounter (principal); R10.9 Unspecified abdominal pain; I10 Essential (primary) hypertension; G62.9 Polyneuropathy, unspecified; M19.90 Unspecified osteoarthritis, unspecified site; N42.9 Disorder of prostate, unspecified; F32.9 Major depressive disorder, single episode, unspecified; F41.9 Anxiety disorder, unspecified; F17.200 Nicotine dependence, unspecified, uncomplicated; Z79.1 Long term (current) use of non-steroidal anti-inflammatories (NSAID); Z79.899 Other long term (current) drug therapy; Z88.1 Allergy status to other antibiotic agents; Z88.8 Allergy status to other drugs, medicaments and biological substances; Z98.1 Arthrodesis status; X50.9XXA Other and unspecified overexertion or strenuous movements or postures, initial encounter; Y93.89 Activity, other specified
CPT/HCPCS: 99284 ×2; 96374 ×2; 96375 ×2; 36415; 80053; 83690; 85027; 81001; 74176; J2270; J1885

== ENCOUNTER → 2017-11-22 | Outpatient (CLI) | payer MEDICARE ==
[2017-11-22 14:02] LABS: Blood Urea Nitrogen 15 mg/dL (9-20)
== END | disposition home or self-care (01) ==
LOC: LABWHC1 13:13
PROVIDERS: ATTEND Physician Assistant
DX: Z01.818 Encounter for other preprocedural examination (principal); N28.9 Disorder of kidney and ureter, unspecified; M41.26 Other idiopathic scoliosis, lumbar region; G89.4 Chronic pain syndrome; M47.812 Spondylosis without myelopathy or radiculopathy, cervical region; M50.122 Cervical disc disorder at C5-C6 level with radiculopathy; M50.321 Other cervical disc degeneration at C4-C5 level; R53.1 Weakness; M54.5 Low back pain; M79.671 Pain in right foot; Z98.1 Arthrodesis status
CPT/HCPCS: 36415; 82565; 84520

== ENCOUNTER 2018-08-08 08:12 | Day surgery (SDC) | payer MEDICARE ==
[2018-08-06 12:06] VITALS: BMI 28.0
[~2018-08-08 08:12] MED LIST changes: -DEXAMETHASONE SOD PHOSPHATE 10 MG/ML 1 ML VIAL IV ONE; -HYDROmorphone 1 MG/ML 1 ML SYRINGE IVP PRN; +LIDOCAINE 1% 20 ML VIAL (10MG/ML) FOR IV START INTRADERMA PRN; -MIDAZOLAM 2 MG/2 ML VIAL IV PRN; -ONDANSETRON 4 MG/2 ML VIAL IVP ONE; -Pre Op ABX Message 1 EACH MISC MISCELLANE ONE; -SCOPOLAMINE 1.5MG/72HR PATCH TRANSDERM ONE
[2018-08-08 08:34] VITALS: RESP 16; TEMP 97.8
[2018-08-08] MEDS ORDERED: LIDOCAINE 1% 20 ML VIAL (10MG/ML) FOR IV START INTRADERMA ONE (08:37)
[2018-08-08] MEDS ORDERED: ONDANSETRON 4 MG/2 ML VIAL IVP ONE (08:51)
[2018-08-08] MEDS ORDERED: PROPOFOL 10 MG/ML 20 ML VIAL IV ONE (09:58)
[2018-08-08] MEDS ORDERED: LIDOCAINE 1% INJ 10MG/ML (20 ML MDV) ONE (09:58)
--- NOTE | 2018-08-08 10:12 | P.GSHP ---
History of Present Illness H&P Date: 08/08/18 Chief Complaint: Screening colonoscopy This a 58-year-old male who presents today for screening colonoscopy. He denies any significant GI complaints. His last colonoscopy was over 10 years ago. Past Medical History Past Medical History: GERD/Reflux, Hypertension, Osteoarthritis (OA), Prostate Disorder, Sleep Apnea/CPAP/BIPAP Additional Past Medical History / Comment(s): back pain, bulging discs in neck, ddd, spinal stenosis,scoliosis.shingles 5 years ago,doesn't use his cpap machine ,.neuropathy. History of Any Multi-Drug Resistant Organisms: None Reported Past Surgical History: Back Surgery, Orthopedic Surgery, Tonsillectomy Additional Past Surgical History / Comment(s): R and L shoulder surgery, R knee surgery x 2, sinus surg. injections to neck/back, radio frequency tx. HAS METAL IN BACK, COLONOSCOPY Past Anesthesia/Blood Transfusion Reactions: Previous Problems w/ Anesthesia Additional Past Anesthesia/Blood Transfusion Reaction / Comment(s): had panic attack when waking up from. shoulder surg, was told it was because of nerve block Smoking Status: Never smoker - Past Family History Mother Family Medical History: Dementia, Hypertension Additional Family Medical History / Comment(s): irregular heart beat, neuropathy Father Family Medical History: Myocardial Infarction ([place]) Medications and Allergies Home Medications Medication Instructions Recorded Confirmed Type Lisinopril [Zestril] 10 mg PO DAILY 05/22/16 08/06/18 History Tamsulosin HCl [Flomax] 0.4 mg PO DAILY 06/12/16 08/06/18 History Gabapentin 600 mg PO HS 02/05/17 08/06/18 History HYDROcodone/APAP 7.5-325MG [Richardson 1 tab PO Q6HR PRN 02/14/17 08/06/18 History 7.5-325] amLODIPine [Norvasc] 10 mg PO DAILY 07/30/17 08/06/18 History Magnesium Gluconate [Magonate] 500 mg PO DAILY 08/06/18 08/06/18 History Montelukast [Singulair] 10 mg PO HS 08/06/18 08/06/18 History Omeprazole 40 mg PO DAILY 08/06/18 08/06/18 History Vit A/Vit C/Vit E/Zinc/Copper 1 each PO DAILY 08/06/18 08/08/18 History [ICAPS SOFTGEL] Allergies Allergy/AdvReac Type Severity Reaction Status Date / Time prednisone Allergy Itching Verified 08/06/18 12:00 azithromycin [From Zithromax] AdvReac yeast Verified 08/06/18 12:00 infection in throat Surgical - Exam Vital Signs Temp Pulse Resp BP Pulse Ox 97.8 F 59 L 16 157/87 99 08/08/18 08:32 08/08/18 08:32 08/08/18 08:32 08/08/18 08:32 08/08/18 08:32 - General well developed, no distress - Eyes PERRL - ENT normal pinna - Neck no masses - Respiratory normal expansion - Cardiovascular Rhythm: regular - Abdomen Abdomen: soft, non tender Assessment and Plan Assessment: We'll perform screening colonoscopy.
--- NOTE | 2018-08-08 10:19 | P.OP ---
Date of Procedure: 08/08/18 Preoperative Diagnosis: Screening colonoscopy Postoperative Diagnosis: Diverticulosis Procedure(s) Performed: Colonoscopy Anesthesia: MAC Surgeon: Dante Wood Pathology: none sent Condition: stable Disposition: PACU Description of Procedure: The patient's placed on the endoscopy table in the lateral position. He received IV sedation. Digital rectal exam was performed which revealed no abnormalities. The prostate was symmetric without nodules. The flexible colonoscope was then placed patient anus passed throughout the entire colon. The ileocecal valve was visualized. The cecum, ascending and transverse colon appeared normal. In the descending; there is mild diverticular changes. Scope summer back the rectum and this appeared normal. Scope was withdrawn for patient.
[2018-08-08 10:47] VITALS: BP 125/78; PULSE 58
== END 2018-08-08 11:06 | disposition home or self-care (01) ==
LOC: ORWHC2ENDO 08:12
PROVIDERS: ATTEND Surgery
DX: Z12.11 Encounter for screening for malignant neoplasm of colon (principal); K57.30 Diverticulosis of large intestine without perforation or abscess without bleeding; I10 Essential (primary) hypertension; K21.9 Gastro-esophageal reflux disease without esophagitis; G47.33 Obstructive sleep apnea (adult) (pediatric); M19.90 Unspecified osteoarthritis, unspecified site; Z82.49 Family history of ischemic heart disease and other diseases of the circulatory system; Z79.899 Other long term (current) drug therapy; Z88.8 Allergy status to other drugs, medicaments and biological substances; Z88.1 Allergy status to other antibiotic agents; Z79.891 Long term (current) use of opiate analgesic; Z99.89 Dependence on other enabling machines and devices
CPT/HCPCS: 45378; J2405; J2001; J2704

== ENCOUNTER → 2018-10-16 | Outpatient (CLI) | payer MEDICARE ==
[2018-10-16 16:00] LABS: Basophils # (A) 0.1 k/uL (0-0.2); Basophils % (A) 1 %; Eosinophils # (A) 0.2 k/uL (0-0.7); Eosinophils % (A) 4 %; HCT 43.3 % (39.0-53.0); HGB 14.4 gm/dL (13.0-17.5); Lymphocytes # (A) 1.8 k/uL (1.0-4.8); Lymphocytes % (A) 28 %; MCH 29.8 pg (25.0-35.0); MCHC 33.2 g/dL (31.0-37.0); MCV 89.7 fL (80.0-100.0); Mean Platelet Volume 7.2; Monocytes # (A) 0.5 k/uL (0-1.0); Monocytes % (A) 7 %; Neutrophils # (A) 3.6 k/uL (1.3-7.7); Neutrophils % (A) 58 %; Platelet Count 269 k/uL (150-450); RBC 4.83 m/uL (4.30-5.90); RDW 12.8 % (11.5-15.5); WBC 6.3 k/uL (3.8-10.6)
[2018-10-16 16:12] LABS: Anion Gap 9 mmol/L; Blood Urea Nitrogen 9 mg/dL (9-20); Calcium 9.2 mg/dL (8.4-10.2); Carbon Dioxide 27 mmol/L (22-30); Chloride 107 mmol/L (98-107); Glucose 93 mg/dL (74-99); Potassium 3.4 mmol/L (3.5-5.1); Sodium 143 mmol/L (137-145)
--- NOTE | 2018-10-16 16:31 | XR ---
EXAMINATION TYPE: XR chest 2V DATE OF EXAM: 10/16/2018 COMPARISON: Chest x-ray from 09/16/2017. HISTORY: Presurgical study. TECHNIQUE: Frontal and lateral views of the chest are obtained. FINDINGS: There is some chronic parenchymal change without suspicious focal air space opacity, pleur al effusion, or pneumothorax seen. The cardiac silhouette size is within normal limits. Postsurgical change in the lumbar spine is partially imaged on lateral view. IMPRESSION: No acute cardiopulmonary process.
[2018-10-16 17:04] LABS: Appearance,Urine Clear (Clear); Bilirubin,Urine Negative (Negative); Blood,Urine Negative (Negative); Color,Urine Yellow; Glucose,Urine (UA) Negative (Negative); Ketones,Urine Negative (Negative); Leukocyte Esterase,Urine Negative (Negative); Nitrite,Urine Negative (Negative); Protein,Urine Negative (Negative); Specific Gravity,Urine 1.016 (1.001-1.035); Urobilinogen,Urine <2.0 mg/dL (<2.0)
== END | disposition home or self-care (01) ==
LOC: LABPAT 14:50
PROVIDERS: ATTEND Orthopaedic Surgery Orthopaedic Surgery of the Spine
DX: Z01.818 Encounter for other preprocedural examination (principal); Z01.812 Encounter for preprocedural laboratory examination; M48.02 Spinal stenosis, cervical region
CPT/HCPCS: 71046; 80048; 81003; 85025

== ENCOUNTER 2018-10-22 05:36 | Inpatient (IN) | payer MEDICARE ==
[2018-10-16 09:14] VITALS: BMI 28.2
[~2018-10-22 05:36] MED LIST changes: +BACITRACIN 50,000 UNIT, POLYMYXIN B 500,000 UNIT in SODIUM CHLORIDE 0.9% IRRIGATIO 1,00... IRRIGATION ONE; -LACTATED RINGERS 1,000 ML IV SCH; -LIDOCAINE 1% 20 ML VIAL (10MG/ML) FOR IV START INTRADERMA PRN; +ceFAZolin IN SWFI 2 GM/20 ML SYRINGE IVP ONE
[2018-10-22] MEDS ORDERED: SCOPOLAMINE 1.5MG/72HR PATCH TRANSDERM ONE (05:44)
[2018-10-22] MEDS ORDERED: MIDAZOLAM 2 MG/2 ML VIAL IV PRN (05:44)
[2018-10-22] MEDS ORDERED: HYDROmorphone 0.5 MG/0.5 ML SYRINGE IVP PRN ×2 (05:44→10:38)
[2018-10-22] MEDS ORDERED: ONDANSETRON 4 MG/2 ML VIAL IVP ONE (05:44)
[2018-10-22] MEDS: LACTATED RINGERS 1,000 ML IV SCH (06:34)
[2018-10-22 06:55] LABS: ALT 38 U/L (21-72); AST 24 U/L (17-59); Albumin 4.3 g/dL (3.5-5.0); Alkaline Phosphatase 86 U/L (38-126); Anion Gap 10 mmol/L; Blood Urea Nitrogen 15 mg/dL (9-20); Calcium 9.2 mg/dL (8.4-10.2); Carbon Dioxide 24 mmol/L (22-30); Chloride 108 mmol/L (98-107); Glucose 106 mg/dL (74-99); Potassium 3.4 mmol/L (3.5-5.1); Sodium 142 mmol/L (137-145); Total Bilirubin 0.8 mg/dL (0.2-1.3)
[2018-10-22 07:00] LABS: Partial Thromboplastin Time 25.4 sec (22.0-30.0); Prothrombin Time 10.3 sec (9.0-12.0)
[2018-10-22] MEDS ORDERED: MIDAZOLAM 2 MG/2 ML VIAL ONE (07:33)
[2018-10-22] MEDS ORDERED: KETAMINE 10 MG/ML 20 ML VIAL ONE (07:33)
[2018-10-22] MEDS ORDERED: PHENYLEPHRINE-0.9% NACL SYG 1 MG/10 ML SYRINGE ONE (07:33)
[2018-10-22] MEDS ORDERED: DEXAMETHASONE SOD PHOS (MDV) 100 MG/10 ML VIAL ONE (07:33)
[2018-10-22] MEDS ORDERED: HYDROmorphone (PF) 1 MG/ML ONE (07:33)
[2018-10-22] MEDS ORDERED: fentaNYL (PF) 50 MCG/ML 2 ML AMP ONE (07:33)
[2018-10-22] MEDS ORDERED: ePHEDrine SULFATE/0.9% NACL/PF 50 MG/5 ML SYRINGE IV ONE (07:33)
[2018-10-22] MEDS ORDERED: LIDOCAINE 1% INJ 10MG/ML (20 ML MDV) ONE (07:33)
[2018-10-22] MEDS ORDERED: SUCCINYLCHOLINE CHLORIDE VIAL 200 MG/10 ML VIAL IV ONE (07:33)
[2018-10-22] MEDS ORDERED: PROPOFOL 10 MG/ML 20 ML VIAL IV ONE (07:33)
[2018-10-22] MEDS ORDERED: GELATIN SPONGE,ABSORB (LARGE) 1 EACH SPONGE TOPICAL ONE (07:50)
[2018-10-22] MEDS ORDERED: THROMBIN (BOVINE) 5,000 UNIT VIAL TOPICAL ONE (07:50)
[2018-10-22] MEDS ORDERED: LIDOCAINE 0.5%-EPI 1:200,000 50 ML VIAL SQ ONE (07:50)
[2018-10-22] MEDS ORDERED: LACTATED RINGERS 1,000 ML IV ONE (08:42)
--- NOTE | 2018-10-22 09:18 | XR ---
EXAMINATION TYPE: XR cervical spine 1V DATE OF EXAM: 10/22/2018 COMPARISON: Cervical spine x-ray dated 10/24/2013. HISTORY: Neck Pain. TECHNIQUE: Single portable crosstable lateral view of cervical spine is obtained intraoperatively. FINDINGS: Exam is for surgical planning and not for diagnostic purposes. Metallic pointer is noted at C4-C5 level. IMPRESSION: As above.
[2018-10-22] MEDS ORDERED: MAGNESIUM HYDROXIDE 2,400 MG/10 ML CUP PO PRN (10:38)
[2018-10-22] MEDS ORDERED: ACETAMINOPHEN TAB 325 MG TAB PO PRN (10:38)
--- NOTE | 2018-10-22 10:43 | XR ---
EXAMINATION TYPE: XR cervical spine 1V DATE OF EXAM: 10/22/2018 COMPARISON: Cervical spine x-ray from earlier today. HISTORY: Neck pain. TECHNIQUE: Portable crosstable lateral view of cervical spine is obtained intraoperatively. FINDINGS: There is new anterior fusion plate from C3 through C7 level. Artificial hyperdense disc mat erial at these levels is now present. Alignment appears satisfactory on the intraoperative images obt ained. IMPRESSION: As above.
--- NOTE | 2018-10-22 10:47 | P.OP ---
Date of Procedure: 10/22/18 Preoperative Diagnosis: Cervical stenosis, upper extremity radiculopathy, neck pain, severe disc degeneration C34 C4 5 C5 6 C6 7 Postoperative Diagnosis: Same Anesthesia: GETA Pathology: none sent Condition: stable Disposition: PACU Description of Procedure: BRIEF OPERATIVE NOTE Preoperative Diagnosis:Cervical stenosis, upper extremity radiculopathy, neck pain, severe disc degeneration C34 C4 5 C5 6 C6 7 Postoperative Diagnosis: Same Procedure: Anterior cervical decompression with discectomy and fusion C3 4 C4 5 C5 6 C6 7 Placement of interbody graft C3 4 C4 5 C5 6 C6 7 Application of anterior cervical plate C3 4 [id number] Surgeon: Dr. Rendon Ax Survey Worker: Joni Valadez is present throughout the entire the case persistence during positioning, dissection, exposure, visualization, and all crucial elements of the case as well as closure. Anesthesia: General anesthesia per Dr. Jones Estimated blood loss: Approximate 30 mL Complications: None apparent Components implanted: K2M Guadalupe anterior cervical plate system with a 4 level plate and 10 screws with Vikos interbody allograft bone graft and 1 mL of DBX bone putty to supplemental bone graft Disposition: To recovery room in good stable condition. OPERATIVE INDICATIONS The patient has had long-standing issues in their neck and upper extremities. He had severe disc degeneration and complete disc height, lives at C3 4 C4 5 C5 6 and C6 7 he is having worsening symptoms at his neck and his bilateral upper extremities worse on the right and left. He is having debility and difficulty doing his activities and was having increasing need for medications and pain medications despite conservative care. His imaging correlated well with his neck and upper extremity symptoms. The patient has been through conservative treatment. We discussed various treatment options including surgery, and the patient wishes to proceed with surgery We discussed the risk, patient's alternatives and benefits of surgery including but not limited to, risk of bleeding risk of infection, risk of need for further surgery, risk of decreased , loss of motion, muscle function, malunion nonunion, hardware failure, nerve damage, paralysis, heart attack, and . OPERATIVE SUMMARY After discussing all the risks, patient alternatives and benefits at length, the patient elected to proceed with surgical intervention, signed informed consent, and presented for their procedure. The patient was seen and examined in the preoperative holding area and the surgical site was marked. The patient was given antibiotics and brought to the operating room. The patient was positioned on the operating room table in a supine position being careful to pad any bony prominences and pressure points. The patient was sedated and intubated by anesthesia in standard fashion. Once the airway and C- spine were stabilized the patient's arms were padded and tucked at her side, with her shoulders gently taped. The head was placed in a donut pad with the neck in good neutral alignment and position. We were careful to maintain the patient's cervical spine and good neutral alignment and position throughout. The patient was prepped and draped in a normal standard fashion. An appropriate timeout and keystone protocol performed. We were able to proceed with the surgery. The local wound area was infiltrated with local anesthetic. An incision was made longitudinally on the right approximate 4 cm over the appropriate levelsC3 4 C4 5 C5 6 C6 7. Dissection was taken down subcutaneously to the level of the platysma which was split in line with its fibers. Dissection was taken with a carotid approach, with the trachea and esophagus medial and the carotid sheath laterally. We dissected down to the anterior surface of the vertebral bodies. Intraoperative x-ray was taken which showed a marker at the appropriate level of C4 5. With the appropriate level positively confirmed, we were able to proceed with discectomy at the appropriate levelsC3 4 C4 5 C5 6 C6 7. All of the operative levels were exposed appropriately. The patient had all their twitches back, and there was no evidence of recurrent laryngeal issue. The wound was copiously irrigated and suctioned dry as had been done periodically throughout the case. At the appropriate level/levels, starting at C3 4 and then working my way down to C4 5 and C5 6 and C6 7, I established an annulotomy with an 11 blade scalpel. There are large anterior osteophytes which were removed and I had to do significant anterior vertebral body contouring throughout the case. A discectomy was performed with a combination of pituitary rongeurs, curettes, a high-speed bur, and Kerrison rongeurs. There is essentially complete disc height collapse at each of the levels and bone grinding on bone from C3 to C7. The posterior longitudinal ligament was taken down as were any posterior osteophytes. This gave good central and bilateral foraminal decompression. There is no evidence of any dural tear or leak. The endplates were prepared with a high-speed bur. With the endplates in good parallel position, I was able to size for the appropriate size interbody graft. The wound was irrigated and suctioned dry the graft was prepared and malleted into position. It had good alignment and position with the anterior surface flush with the anterior surface of the vertebral bodies. This was done similarly the appropriate levels C3 4 C4 5 C5 6 C6 7. With the grafts intact, I was able to measure and contour and appropriate sized plate. The plate was positioned at the midline over the appropriate levelsC3 4 C4 5 C5 6 C6 7. Screw holes were established with a hand drill and drill guide. Screws were placed in good alignment and position with excellent bony purchase. They were seated under the locking device. The construct was checked and found to be stable. Intraoperative x-ray was taken which showed good alignment and position of the implants at the appropriate levels from C3 to C7. There was no evidence of any dural tear or leak. Good hemostasis was maintained. The wound was copiously irrigated and suctioned dry as had been done periodically throughout the case. The platysma was closed with absorbable suture. The subcutaneous tissue was closed. The subcuticular tissue was closed with absorbable suture. The wound was cleaned and dried and dressed appropriately. A soft cervical collar was placed appropriately. The patient was woken up by anesthesia, extubated, transferred back gently to their hospital bed and brought to the recovery room in good stable condition. The patient will be admitted to the hospital for appropriate postoperative care , medical management and monitoring. We will continue to follow them closely about the postoperative course.
[2018-10-22] MEDS ORDERED: SODIUM CHLORIDE 0.9% 1,000 ML IV ONE (11:41)
[2018-10-22] MEDS: SODIUM CHLORIDE 0.9% 1,000 ML IV SCH (11:47)
[2018-10-22] MEDS: HYDROmorphone 1 MG/ML 1 ML SYRINGE IVP PRN ×2 (12:06→16:36)
[2018-10-22] MEDS ORDERED: ceFAZolin 3 GM in SODIUM CHLORIDE 0.9% 100 ML IVPB SCH (16:00)
[2018-10-22] MEDS ORDERED: SENNOSIDES-DOCUSATE SODIUM 1 EACH TAB PO STA (17:27)
[2018-10-22] MEDS: ONDANSETRON 4 MG/2 ML VIAL IVP PRN (18:03)
[2018-10-22] MEDS: ceFAZolin IN SWFI 2 GM/20 ML SYRINGE IVP SCH (18:03)
[2018-10-22] MEDS: LORATADINE-PSEUDOEPH 5-120 MG 1 EACH TAB.ER.12H PO PRN (18:04)
[2018-10-22] MEDS: HYDROcodone/APAP 7.5-325MG 1 EACH TAB PO PRN (19:07)
[2018-10-22] MEDS: GABAPENTIN 300 MG CAP PO SCH (21:05)
[2018-10-22] MEDS: BENZOCAINE/MENTHOL LOZENG 1 EACH LOZENGE MUCOUS MEM PRN (21:05)
[2018-10-22] MEDS: ATORVASTATIN 40 MG TAB PO SCH (21:05)
[2018-10-22] MEDS: MONTELUKAST 10 MG TAB PO SCH (21:05)
[2018-10-22] MEDS ORDERED: ZOLPIDEM 5 MG TAB PO PRN (21:07)
--- NOTE | 2018-10-22 21:11 | P.CONS ---
History of Present Illness - Reason for Consult Consult date: 10/22/18 - Chief Complaint Status post cervical fusion. Assistance with medical management. - History of Present Illness This is a continue consult on a 58-year-old white male with known history of ALLERGIC rhinitis and asthma who has history of BPH who is essentially here for cervical fusion. Patient seems postoperatively and doing quite well except for pain control. He is requesting mild sedative for sleep tonight. Otherwise no unexpected voiding symptoms. Review of Systems Constitutional: Denies chills, Denies fever Eyes: denies blurred vision, denies pain Ears, nose, mouth and throat: Denies headache, Denies sore throat Cardiovascular: Denies chest pain, Denies shortness of breath Respiratory: Denies cough Gastrointestinal: Denies abdominal pain, Denies diarrhea, Denies nausea, Denies vomiting Musculoskeletal: Denies myalgias Integumentary: Denies pruritus, Denies rash Neurological: Denies numbness, Denies weakness Psychiatric: Denies anxiety, Denies depression Endocrine: Denies fatigue, Denies weight change Past Medical History Past Medical History: GERD/Reflux, Hypertension, Osteoarthritis (OA), Prostate Disorder, Sleep Apnea/CPAP/BIPAP Additional Past Medical History / Comment(s): back pain, bulging discs in neck, ddd, spinal stenosis,scoliosis.shingles 5 years ago,doesn't use his cpap machine , neuropathy feet History of Any Multi-Drug Resistant Organisms: None Reported Past Surgical History: Back Surgery, Orthopedic Surgery, Tonsillectomy Additional Past Surgical History / Comment(s): R and L shoulder surgery, R knee surgery x 2, sinus surg. injections to neck/back, radio frequency tx. HAS METAL IN BACK, COLONOSCOPY Past Anesthesia/Blood Transfusion Reactions: Previous Problems w/ Anesthesia Additional Past Anesthesia/Blood Transfusion Reaction / Comm: had panic attack when waking up from. 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 Smoking Status: Never smoker Past Alcohol Use History: Occasional Additional Past Alcohol Use History / Comment(s): occ smokes a cigarello-not anymore for last month Past Drug Use History: None Reported - Past Family History Mother Family Medical History: Dementia, Hypertension Additional Family Medical History / Comment(s): irregular heart beat, neuropathy Father Family Medical History: Myocardial Infarction (SC) Medications and Allergies Home Medications Medication Instructions Recorded Confirmed Type RX: Lisinopril [Zestril] 10 mg PO DAILY 05/22/16 10/22/18 History RX: Tamsulosin HCl [Flomax] 0.4 mg PO DAILY 06/12/16 10/22/18 History RX: Gabapentin 600 mg PO HS 02/05/17 10/22/18 History RX: amLODIPine [Norvasc] 5 mg PO DAILY 07/30/17 10/22/18 History Montelukast [Singulair] 10 mg PO HS 08/06/18 10/22/18 History RX: Omeprazole 40 mg PO DAILY 08/06/18 10/22/18 History Vit A/Vit C/Vit E/Zinc/Copper 1 cap PO DAILY 08/06/18 10/22/18 History [ICAPS SOFTGEL] Atorvastatin [Lipitor] 40 mg PO HS 10/16/18 10/22/18 History HYDROcodone/APAP 5-325MG [[place] 1 tab PO Q8H PRN 10/16/18 10/22/18 History 5-325] Loratadine-Pseudoeph 5-120 mg 1 tab PO Q12HR PRN 10/16/18 10/22/18 History [Claritin-D 12 HR] HYDROcodone/APAP 7.5-325MG [[place] 1 tab PO Q4-6H PRN #42 tab 10/22/18 Rx 7.5-325] Allergies Allergy/AdvReac Type Severity Reaction Status Date / Time prednisone Allergy Itching Verified 10/22/18 11:47 azithromycin [From Zithromax] AdvReac yeast Verified 10/22/18 11:47 infection in throat Physical Exam Vitals: Vital Signs Temp Pulse Resp BP Pulse Ox 10/22/18 16:39 16 10/22/18 13:15 72 107/71 96 10/22/18 13:00 74 106/70 98 10/22/18 12:45 69 103/69 95 10/22/18 12:30 64 108/69 94 L 10/22/18 12:15 59 L 106/68 97 10/22/18 12:10 16 10/22/18 12:00 97.5 F L 71 16 119/73 98 10/22/18 11:30 74 16 114/66 92 L 10/22/18 11:15 71 14 115/63 93 L 10/22/18 11:00 72 16 130/72 97 10/22/18 10:49 97.4 F L 71 16 118/72 97 10/22/18 06:09 97.5 F L 70 17 152/82 96 Intake and Output 10/22/18 10/22/18 10/22/18 06:59 14:59 22:59 Intake Total 250 1990 Output Total 300 Balance 250 1691 Intake: IV 250 1751 Oral 240 Output: Urine 150 Estimated Blood Loss 150 Other: Weight 99.79 kg - Constitutional General appearance: no acute distress - EENT Eyes: EOMI - Neck Neck: no lymphadenopathy - Respiratory Respiratory: bilateral: CTA - Cardiovascular Rhythm: regular - Gastrointestinal General gastrointestinal: soft, no tenderness - Integumentary Integumentary: no cellulitis - Neurologic Neurologic: CNII-XII intact Results CBC & Chem 7: 10/22/18 06:18 Labs: Abnormal Lab Results - Last 24 Hours (Table) 10/22/18 Range/Units 06:18 Potassium 3.4 L (3.5-5.1) mmol/L Chloride 108 H (98-107) mmol/L Glucose 106 H (74-99) mg/dL Assessment and Plan (1) DDD (degenerative disc disease), cervical Current Visit: Yes Status: Acute Code(s): M50.30 - OTHER CERVICAL DISC DEGENERATION, UNSP CERVICAL REGION SNOMED Code(s): 94479499 (2) BPH (benign prostatic hyperplasia) Current Visit: Yes Status: Acute Code(s): N40.0 - BENIGN PROSTATIC HYPERPLASIA WITHOUT LOWER URINRY TRACT SYMP SNOMED Code(s): 074087095 (3) Degenerative scoliosis in adult patient Current Visit: No Status: Acute Code(s): M41.50 - OTHER SECONDARY SCOLIOSIS , SITE UNSPECIFIED SNOMED Code(s): 372988537 (4) Hypertension Current Visit: No Status: Chronic Code(s): I10 - ESSENTIAL (PRIMARY) HYPERTENSION SNOMED Code(s): 60715702 Plan: Reconcile medications watch blood pressure closely. Check CBC and CMP in a.m. We'll continue follow from a medical perspective. Appreciate consultation. Time with Patient: Less than 30
[2018-10-23] MEDS: ceFAZolin IN SWFI 2 GM/20 ML SYRINGE IVP SCH (00:39)
[2018-10-23] MEDS: SODIUM CHLORIDE 0.9% 1,000 ML IV SCH ×2 (00:40→13:30)
[2018-10-23] MEDS: LACTATED RINGERS 1,000 ML IV SCH (06:15)
[2018-10-23] MEDS: HYDROcodone/APAP 7.5-325MG 1 EACH TAB PO PRN ×4 (06:57→22:20)
[2018-10-23] MEDS: PANTOPRAZOLE 40 MG TABLET PO SCH (06:58)
[2018-10-23] MEDS: ONDANSETRON 4 MG/2 ML VIAL IVP PRN (07:07)
--- NOTE | 2018-10-23 07:51 | P.PN ---
Subjective Progress Note Date: 10/23/18 Principal diagnosis: This is a continue present on a 58-year-old white male essentially admitted for cervical fusion. The patient has complaint of sinus congestion today. Question need for intranasal steroids. No significant fever or chills. However , there is significant nausea and decreased appetite, which I do suspect is related to the procedure and anesthesia. The patient's pain control seems, on the surface to be stable. Objective - Vital Signs Vital signs: Vital Signs Temp 97.8 F 10/23/18 01:00 Pulse 84 10/23/18 01:00 Resp 16 10/23/18 01:00 BP 132/77 10/23/18 01:00 Pulse Ox 94 L 10/23/18 01:00 Intake & Output 10/22/18 10/23/18 10/23/18 18:59 06:59 18:59 Intake Total 1990 Output Total 300 Balance 1691 Weight 99.79 kg Intake: IV 1751 Oral 240 Output: Urine 150 Estimated Blood Loss 150 - Constitutional General appearance: Present: average body habitus - EENT Eyes: Absent: abnormal pupil - Neck Neck: Present: lymphadenopathy - Respiratory Respiratory: bilateral: CTA - Cardiovascular Rhythm: regular Heart sounds: normal: S1, S2 Abnormal Heart Sounds: Absent: S3 Gallop - Gastrointestinal General gastrointestinal: Absent: tenderness - Musculoskeletal Musculoskeletal: Present: gait normal - Labs CBC & Chem 7: 10/22/18 06:18 Assessment and Plan (1) DDD (degenerative disc disease), cervical Current Visit: Yes Status: Acute Code(s): M50.30 - OTHER CERVICAL DISC DEGENERATION, UNSP CERVICAL REGION SNOMED Code(s): 82555192 (2) BPH (benign prostatic hyperplasia) Current Visit: Yes Status: Acute Code(s): N40.0 - BENIGN PROSTATIC HYPERPLASIA WITHOUT LOWER URINRY TRACT SYMP SNOMED Code(s): 493770644 (3) Degenerative scoliosis in adult patient Current Visit: No Status: Acute Code(s): M41.50 - OTHER SECONDARY SCOLIOSIS , SITE UNSPECIFIED SNOMED Code(s): 666303263 (4) Hypertension Current Visit: No Status: Chronic Code(s): I10 - ESSENTIAL (PRIMARY) HYPERTENSION SNOMED Code(s): 71909070 Plan: Continue current regimen or treatment. Add intranasal steroids for congestion as necessary. Continue Claritin with Sudafe and watch blood pressure closely. We'll continue to follow during this hospitalization. Time with Patient: Less than 30
[2018-10-23 08:11] LABS: HCT 41.7 % (39.0-53.0); HGB 13.9 gm/dL (13.0-17.5); MCH 29.6 pg (25.0-35.0); MCHC 33.2 g/dL (31.0-37.0); MCV 89.1 fL (80.0-100.0); Mean Platelet Volume 7.3; Platelet Count 275 k/uL (150-450); RBC 4.68 m/uL (4.30-5.90); RDW 12.7 % (11.5-15.5); WBC 16.2 k/uL (3.8-10.6)
[2018-10-23 08:20] LABS: ALT 30 U/L (21-72); AST 19 U/L (17-59); Albumin 3.9 g/dL (3.5-5.0); Alkaline Phosphatase 83 U/L (38-126); Anion Gap 8 mmol/L; Blood Urea Nitrogen 12 mg/dL (9-20); Calcium 9.5 mg/dL (8.4-10.2); Carbon Dioxide 27 mmol/L (22-30); Chloride 109 mmol/L (98-107); Glucose 114 mg/dL (74-99); Potassium 4.2 mmol/L (3.5-5.1); Sodium 144 mmol/L (137-145); Total Bilirubin 1.3 mg/dL (0.2-1.3); Total Protein 6.6 g/dL (6.3-8.2)
[2018-10-23] MEDS: amLODIPine 5 MG TAB PO SCH (08:23)
[2018-10-23] MEDS: LISINOPRIL 10 MG TAB PO SCH (08:23)
[2018-10-23] MEDS: SENNOSIDES-DOCUSATE SODIUM 1 EACH TAB PO SCH (08:23)
[2018-10-23] MEDS: TAMSULOSIN 0.4 MG CAP.ER.24H PO SCH (08:23)
--- NOTE | 2018-10-23 09:02 | P.PN ---
Subjective Progress Note Date: 10/23/18 Principal diagnosis: Status post ACDF C3-4, C4-5, C5-6, C6-7 This is a 58 year-old male post ACDF C3-4, C4-5, C5-6, C6-7. This is post-op day 1. The patient was evaluated at the bedside today. He has been experiencing severe nausea and vomiting since last night and also states he is experiencing sinus congestion and drainage. Dr. Mulligan has ordered intranasal steroids and a decongestant. The patient denies abdominal pain, shortness of breath, and chest pain this morning. He states his pain is controlled at this time. The patient has been up to the bathroom. Objective - Vital Signs Vital signs: Vital Signs Temp 98.3 F 10/23/18 07:13 Pulse 65 10/23/18 07:13 Resp 16 10/23/18 07:59 BP 163/80 10/23/18 07:13 Pulse Ox 98 10/23/18 07:13 Intake & Output 10/22/18 10/23/18 10/23/18 18:59 06:59 18:59 Intake Total 1990 120 Output Total 300 Balance 1691 120 Weight 99.79 kg 99.79 kg Intake: IV 1751 Oral 240 120 Output: Urine 150 Estimated Blood Loss 150 - Exam The patient does not appear in acute distress. Alert and orientated x3. Dressing is clean dry and intact. Incision appears fine with no erythema or active drainage. No new neurological changes to the upper extremities. The patient has good motion on his wrists and hands. Neurological and circulatory status is intact. - Labs CBC & Chem 7: 10/23/18 07:29 10/23/18 07:29 Labs: Abnormal Lab Results - Last 24 Hours (Table) 10/23/18 10/23/18 Range/Units 07:29 07:29 WBC 16.2 H (3.8-10.6) k/uL Chloride 109 H (98-107) mmol/L Glucose 114 H (74-99) mg/dL Assessment and Plan (1) Status post cervical spinal fusion Current Visit: Yes Status: Acute Code(s): Z98.1 - ARTHRODESIS STATUS SNOMED Code(s): 3276554633461 (2) DDD (degenerative disc disease), cervical Current Visit: Yes Status: Acute Code(s): M50.30 - OTHER CERVICAL DISC DEGENERATION, UNSP CERVICAL REGION SNOMED Code(s): 04961651 Plan: 1. Continue pain control 2. Continue anti-nausea medications 3. Continue ambulation 4. Anticipate discharge home when nausea is improved, maybe later today or tomorrow morning.
[2018-10-23] MEDS ORDERED: VIT A,C & E-LUTEIN-MINERALS 1 EACH TAB PO SCH (12:00)
[2018-10-23] MEDS: LORATADINE-PSEUDOEPH 5-120 MG 1 EACH TAB.ER.12H PO PRN (17:42)
[2018-10-23] MEDS: GABAPENTIN 300 MG CAP PO SCH (20:43)
[2018-10-23] MEDS: BENZOCAINE/MENTHOL LOZENG 1 EACH LOZENGE MUCOUS MEM PRN (20:43)
[2018-10-23] MEDS: MONTELUKAST 10 MG TAB PO SCH (20:43)
[2018-10-23] MEDS: ATORVASTATIN 40 MG TAB PO SCH (20:43)
[2018-10-24] MEDS: LACTATED RINGERS 1,000 ML IV SCH (03:27)
[2018-10-24] MEDS: SODIUM CHLORIDE 0.9% 1,000 ML IV SCH (03:27)
[2018-10-24] MEDS: BENZOCAINE/MENTHOL LOZENG 1 EACH LOZENGE MUCOUS MEM PRN (06:29)
[2018-10-24] MEDS: HYDROcodone/APAP 7.5-325MG 1 EACH TAB PO PRN (06:29)
[2018-10-24 07:22] VITALS: BP 157/91; PULSE 56; RESP 12; TEMP 98.3
--- NOTE | 2018-10-24 08:17 | P.PN ---
Subjective This is a continuing progress on 8-year-old white male essentially meant for cervical spinal stenosis. The patient is postop day #2 for repair of multilevel DJD. The patient will be discharged most likely today when cleared by neurosurgery. The patient's blood pressure and pain control her much improved today. No voiding symptoms are stated. Patient is tolerating diet Objective - Vital Signs Vital signs: Vital Signs Temp 98.3 F 10/24/18 07:21 Pulse 56 L 10/24/18 07:21 Resp 12 10/24/18 07:21 BP 157/91 10/24/18 07:21 Pulse Ox 97 10/24/18 07:21 Intake & Output 10/23/18 10/24/18 10/24/18 18:59 06:59 18:59 Intake Total 360 240 Balance 360 240 Weight 99.79 kg Intake: Oral 360 240 Other: Voiding Method Toilet - Constitutional General appearance: Present: average body habitus - EENT Eyes: Absent: abnormal pupil - Neck Neck: Absent: normal ROM - Respiratory Respiratory: bilateral: CTA - Cardiovascular Rhythm: regular Heart sounds: normal: S1, S2 Abnormal Heart Sounds: Absent: S3 Gallop - Gastrointestinal General gastrointestinal: Present: soft. Absent: tenderness - Labs CBC & Chem 7: 10/23/18 07:29 10/23/18 07:29 Labs: Abnormal Lab Results - Last 24 Hours (Table) 10/23/18 Range/Units 07:29 Chloride 109 H (98-107) mmol/L Glucose 114 H (74-99) mg/dL Assessment and Plan (1) DDD (degenerative disc disease), cervical Current Visit: Yes Status: Acute Code(s): M50.30 - OTHER CERVICAL DISC DEGENERATION, UNSP CERVICAL REGION SNOMED Code(s): 07150368 (2) BPH (benign prostatic hyperplasia) Current Visit: Yes Status: Acute Code(s): N40.0 - BENIGN PROSTATIC HYPERPLASIA WITHOUT LOWER URINRY TRACT SYMP SNOMED Code(s): 893473705 (3) Degenerative scoliosis in adult patient Current Visit: No Status: Acute Code(s): M41.50 - OTHER SECONDARY SCOLIOSIS , SITE UNSPECIFIED SNOMED Code(s): 207807115 (4) Hypertension Current Visit: No Status: Chronic Code(s): I10 - ESSENTIAL (PRIMARY) HYPERTENSION SNOMED Code(s): 35720056 Plan: Anticipate discharge today. The patient has been told to start Mucinex for sinus drainage and to continue any history and decongestants. We'll follow-up as an outpatient in 5-7 days.
[2018-10-24] MEDS: LISINOPRIL 10 MG TAB PO SCH (08:19)
[2018-10-24] MEDS: TAMSULOSIN 0.4 MG CAP.ER.24H PO SCH (08:19)
[2018-10-24] MEDS: amLODIPine 5 MG TAB PO SCH (08:19)
[2018-10-24] MEDS: SENNOSIDES-DOCUSATE SODIUM 1 EACH TAB PO SCH (08:19)
[2018-10-24] MEDS: PANTOPRAZOLE 40 MG TABLET PO SCH (08:21)
--- NOTE | 2018-10-24 08:21 | P.DS ---
Providers Date of admission: 10/22/18 05:36 Expected date of discharge: 10/24/18 Attending physician: Chely Rendon Primary care physician: Nathaniel Mulligan - Discharge Diagnosis(es) (1) DDD (degenerative disc disease), cervical Current Visit: Yes Status: Acute (2) Status post cervical spinal fusion Current Visit: Yes Status: Acute Hospital Course: This is a 58-year-old male with history of severe cervical disc disease and cervical spinal stenosis. He has failed outpatient conservative treatment. He presents to the hospital for 4 level cervical fusion, C3 4, C4 5, C5 6, C6 7. The procedures performed without complication. He did have some postoperative nausea on postoperative day #1. His symptoms are resolving on postoperative day #2. His appetite has improved. He is ready for discharge on postoperative day #2. Please see med rec for accurate list of home medications. Plan - Discharge Summary Discharge Rx Participant: Yes New Discharge Prescriptions: New HYDROcodone/APAP 7.5-325MG [[place] 7.5-325] 1 tab PO Q4-6H PRN #42 tab PRN Reason: Pain No Action Lisinopril [Zestril] 10 mg PO DAILY Tamsulosin HCl [Flomax] 0.4 mg PO DAILY Gabapentin 600 mg PO HS amLODIPine [Norvasc] 5 mg PO DAILY Vit A/Vit C/Vit E/Zinc/Copper [ICAPS SOFTGEL] 1 cap PO DAILY Omeprazole 40 mg PO DAILY Montelukast [Singulair] 10 mg PO HS Loratadine-Pseudoeph 5-120 mg [Claritin-D 12 HR] 1 tab PO Q12HR PRN PRN Reason: allergies HYDROcodone/APAP 5-325MG [[place] 5-325] 1 tab PO Q8H PRN PRN Reason: Pain Atorvastatin [Lipitor] 40 mg PO HS Discharge Medication List Lisinopril [Zestril] 10 mg PO DAILY 05/22/16 [History] Tamsulosin HCl [Flomax] 0.4 mg PO DAILY 06/12/16 [History] Gabapentin 600 mg PO HS 02/05/17 [History] amLODIPine [Norvasc] 5 mg PO DAILY 07/30/17 [History] Montelukast [Singulair] 10 mg PO HS 08/06/18 [History] Omeprazole 40 mg PO DAILY 08/06/18 [History] Vit A/Vit C/Vit E/Zinc/Copper [ICAPS SOFTGEL] 1 cap PO DAILY 08/06/18 [History] Atorvastatin [Lipitor] 40 mg PO HS 10/16/18 [History] HYDROcodone/APAP 5-325MG [[place] 5-325] 1 tab PO Q8H PRN 10/16/18 [History] Loratadine-Pseudoeph 5-120 mg [Claritin-D 12 HR] 1 tab PO Q12HR PRN 10/16/18 [ History] HYDROcodone/APAP 7.5-325MG [[place] 7.5-325] 1 tab PO Q4-6H PRN #42 tab 10/22/18 [ Rx] Follow up Appointment(s)/Referral(s): Joni Luna, [employer] [PHYSICIAN SECURITY SALES MANAGER] - 2 Weeks (Patient may follow-up with Joni Luna PA-C or Dr. Jon Rendon at [facility] in 2-3 weeks following discharge. ) Activity/Diet/Wound Care/Special Instructions: 1. May shower with Tegaderm dressing intact. 2. May remove Tegaderm dressing in 3 days and shower without a dressing at that time. 3. Keep Steri-Strips intact and allow them to fall off naturally. 4. Refrain from driving until at least after their first follow-up appointment in the office. 5. Avoid excessive cervical extension, flexion, rotation, or side bending; avoid overhead lifting; no lifting greater than 10 pounds 6. May wear soft cervical collar for comfort support as needed 7. Take medications as prescribed 8. Do not soak in tub. 9. Bone stimulator to the back of the neck as directed. Discharge Disposition: HOME SELF-CARE
== END 2018-10-24 09:30 | disposition home or self-care (01) | DRG 473 ==
LOC: 2ORMAIN 05:36 → 4SSUR 10:38
PROVIDERS: ADMIT Orthopaedic Surgery Orthopaedic Surgery of the Spine; ATTEND Orthopaedic Surgery Orthopaedic Surgery of the Spine
PROC: 0RG20K0 Fusion of 2 or more Cervical Vertebral Joints with Nonautologous Tissue Substitute, Anterior Approach, Anterior Column, Open Approach (ICD-10-PCS; principal; 2018-10-22 07:30)
PROC: 0RB30ZZ Excision of Cervical Vertebral Disc, Open Approach (ICD-10-PCS; principal; 2018-10-22 07:30)
DX: M48.02 Spinal stenosis, cervical region (principal); M47.22 Other spondylosis with radiculopathy, cervical region; M50.11 Cervical disc disorder with radiculopathy, high cervical region; G47.30 Sleep apnea, unspecified; I10 Essential (primary) hypertension; J45.909 Unspecified asthma, uncomplicated; K21.9 Gastro-esophageal reflux disease without esophagitis; M19.90 Unspecified osteoarthritis, unspecified site; M41.80 Other forms of scoliosis, site unspecified; N40.0 Benign prostatic hyperplasia without lower urinary tract symptoms; Z79.899 Other long term (current) drug therapy; Z82.49 Family history of ischemic heart disease and other diseases of the circulatory system; Z99.89 Dependence on other enabling machines and devices; Z79.891 Long term (current) use of opiate analgesic; Z79.51 Long term (current) use of inhaled steroids; Z88.1 Allergy status to other antibiotic agents; Z88.8 Allergy status to other drugs, medicaments and biological substances; J31.0 Chronic rhinitis
CPT/HCPCS: 72020; 80053; 85027; 85610; 85730; 86850; 86900; 86901; 94760

== ENCOUNTER → 2020-01-04 | Outpatient (CLI) | payer MEDICARE ==
--- NOTE | 2020-01-04 12:24 | CT ---
EXAMINATION TYPE: CT sinus wo con DATE OF EXAM: 01/04/2020 COMPARISON: None HISTORY: 59-year-old male with unspecified chronic sinusitis, recurrent sinus infections CT DLP: 639 mGycm Automated exposure control for dose reduction was used. TECHNIQUE: Noncontrast axial views of the paranasal sinuses were obtained. Coronal reconstructions pe rformed. FINDINGS: PARANASAL SINUSES: Essentially previous medial maxillary antrectomy on the right. A couple mucosal retention cysts versu s polyps along the floor the right maxillary sinus measuring up to 1.5 cm. Scattered mild mucosal thi ckening throughout the bilateral maxillary sinuses. Some resection changes extend into the posterior right ethmoid air is. Scattered moderate mucosal thi ckening throughout the bilateral ethmoid air cells, more severe posterior on the left. Frontal and sphenoid sinuses are well pneumatized. There is no air-fluid level. Reactive prachi- osteogenesis is not seen. There is no destruction of the osseous montero of the paranasal sinuses. THE NASAL CAVITY: The osteomeatal complexes are patent. There is slight bowing of the nasal septum towards the right. The imaged brain and orbits are normal in appearance. Mastoid air cells and middle ear cavities are well pneumatized. Reformatted images confirm above findings. IMPRESSION: 1. Suggestion of prior medial maxillary antrectomy on the right. 2. Mild chronic maxillary sinus disease on both sides. A couple polyps or mucosal retention cyst bhakti g the floor the right maxillary sinus measuring up to 1.5 cm. 3. Moderate chronic ethmoid sinus disease.
== END | disposition home or self-care (01) ==
LOC: RADCTMAIN 11:09
PROVIDERS: ATTEND Family Medicine
DX: J32.0 Chronic maxillary sinusitis (principal); J32.2 Chronic ethmoidal sinusitis
CPT/HCPCS: 70486

== ENCOUNTER → 2020-09-15 | Outpatient (CLI) | payer MEDICARE ==
[2020-09-15 13:32] LABS: HGB 14.9 gm/dL (13.0-17.5); MCH 31.7 pg (25.0-35.0); MCHC 34.8 g/dL (31.0-37.0); MCV 91.2 fL (80.0-100.0); Mean Platelet Volume 7.7; Platelet Count 241 k/uL (150-450); RBC 4.71 m/uL (4.30-5.90); RDW 11.8 % (11.5-15.5); WBC 6.4 k/uL (3.8-10.6)
[2020-09-15 19:42] LABS: Ferritin 78.5 ng/mL (22.0-322.0); T4, Free (Free Thyroxine) 1.1 ng/dL (0.80-1.80)
[2020-09-15 20:11] LABS: % Iron Saturation 18.31 (15.00-50.00); African American GFR (CKD) 114.1 (60.0-200.0); Albumin 4.3 g/dL (3.80-4.90); Albumin/Globulin Ratio 2.15 (1.60-3.17); Anion Gap 7.7 mmol/L (4.00-12.00); Calcium 9.1 mg/dL (8.7-10.3); Carbon Dioxide 25.3 mmol/L (21.6-31.8); Non-African American GFR(CKD) 98.5 (60.0-200.0); Potassium 3.9 mmol/L (3.5-5.5); Total Bilirubin 0.7 mg/dL (0.2-1.2); Total Protein 6.3 g/dL (6.2-8.2)
[2020-09-15 21:19] LABS: Hemoglobin A1C 5.7 % (4.0-6.0)
[2020-09-15 21:43] LABS: INR 0.97 (0.90-1.11); Prothrombin Time 10.7 sec (9.9-11.9)
== END | disposition home or self-care (01) ==
LOC: LABWHC1 12:59
PROVIDERS: ATTEND Nurse Practitioner Family
DX: E55.9 Vitamin D deficiency, unspecified (principal); R53.83 Other fatigue
CPT/HCPCS: 36415; 80053; 82306; 82550; 82607; 82728; 83036; 83540; 83550; 84439; 84443; 84466; 84481; 85027; 85610

== ENCOUNTER → 2020-11-01 | Outpatient (CLI) | payer MEDICARE ==
--- NOTE | 2020-11-02 06:53 | XR ---
EXAMINATION TYPE: XR chest 2V DATE OF EXAM: 11/01/2020 COMPARISON: Iron deficiency and dyspnea. Essential hypertension and neutrophilia. HISTORY: Chest x-ray October 16, 2018 TECHNIQUE: Frontal and lateral views of the chest are obtained. FINDINGS: There is no focal air space opacity, pleural effusion, or pneumothorax seen. The cardiac silhouette size is within normal limits. Postsurgical change to the cervical spine and lumbar spine i s partially imaged. IMPRESSION: No acute cardiopulmonary process.
== END | disposition home or self-care (01) ==
LOC: RAD 16:23
PROVIDERS: ATTEND Internal Medicine Hematology & Oncology
DX: I10 Essential (primary) hypertension (principal); R06.00 Dyspnea, unspecified; E61.1 Iron deficiency; D72.0 Genetic anomalies of leukocytes
CPT/HCPCS: 71046

== ENCOUNTER → 2021-01-26 | Outpatient (CLI) | payer MEDICARE ==
[~2021-01-26] MED LIST changes: -BACITRACIN 50,000 UNIT, POLYMYXIN B 500,000 UNIT in SODIUM CHLORIDE 0.9% IRRIGATIO 1,00... IRRIGATION ONE; +REGADENOSON 0.4 MG/5 ML SYRINGE IV PRN; -ceFAZolin IN SWFI 2 GM/20 ML SYRINGE IVP ONE
--- NOTE | 2021-01-26 12:51 | NM ---
EXAMINATION TYPE: NM stress lexiscan cardiolite DATE OF EXAM: 01/26/2021 COMPARISON: NONE HISTORY: Dyspnea, chest pain TECHNIQUE: After the intravenous administration of 9.157 mCi Tc 99m Sestamibi - Cardiolite resting S PECT images acquired 45 minutes post injection. At peak stress 25.0 mCi Tc 99m Sestamibi - Stress images obtained 55 minutes post injection The patient was stressed with 0.4mg Lexiscan. FINDINGS: No fixed defects are evident. There may be some chronic cardiac thinning present. No reversible stress defects on Spect images. Wall motion is normal. Ejection fraction is calculated to be 60 %. IMPRESSION: 1. No scintigraphic evidence for reversible ischemia.
--- NOTE | 2021-01-26 14:09 | EST ---
EXERCISE STRESS AGE: 60 SEX: Male HT: 6'2" WT: 228 lbs. PROTOCOL: Lexiscan Cardiolite STAGE: N/A DURATION OF EXERCISE: 5 min. HEART RATE REST: 57 BLOOD PRESSURE REST: 122/79 MAXIMUM HEART RATE ACHIEVED: 87 MAXIMUM BLOOD PRESSURE: 115/70 85% MPHR: 138 100% MPHR: 162 METS: N/A INDICATIONS: dyspnea CLINICAL INFORMATION: Baseline EKG revealed a sinus bradycardia with poor R-wave progression of precordial leads and J-point prominence. With Lexiscan administration, heart rate changed from 57- 87 beats per minute. Blood pressure changed from 122/79 to 115/70. EKG remained unremarkable. Patient did not have any significant symptoms. By EKG criteria, this is an unremarkable Lexiscan stress test. The nuclear scan results which are more pertinent will be reported by the radiologist. MMHANNAH / ORESTES: [id number] /
== END | disposition home or self-care (01) ==
LOC: RADNMMAIN 08:00
PROVIDERS: ATTEND Family Medicine
DX: R06.00 Dyspnea, unspecified (principal); R07.9 Chest pain, unspecified
CPT/HCPCS: 93017; 78452; A9500; J2785

== ENCOUNTER → 2021-10-03 | Outpatient (CLI) | payer MEDICARE ==
[2021-10-03 18:42] LABS: Basophils # (A) 0.05 X 10*3/uL (0.00-0.10); Basophils % (A) 0.8 %; Eosinophils # (A) 0.27 X 10*3/uL (0.04-0.35); Eosinophils % (A) 4.2 %; HCT 43.8 % (39.6-50.0); HGB 14.2 g/dL (13.0-17.0); Lymphocytes # (A) 1.84 X 10*3/uL (0.90-5.00); Lymphocytes % (A) 28.8 %; MCH 30.2 pg (27.0-32.0); MCHC 32.4 g/dL (32.0-37.0); MCV 93.2 fL (80.0-97.0); Mean Platelet Volume 10.3 fL (9.5-12.2); Monocytes # (A) 0.59 X 10*3/uL (0.20-1.00); Monocytes % (A) 9.2 %; Neutrophils # (A) 3.62 X 10*3/uL (1.80-7.70); Neutrophils % (A) 56.8 %; Platelet Count 252 X 10*3/uL (140-440); RDW 11.9 % (11.5-14.5); WBC 6.38 X 10*3/uL (4.50-10.00)
[2021-10-03 19:38] LABS: % Iron Saturation 25.72 (15.00-50.00); ALT 45 U/L (10-49); AST 29 U/L (14-35); African American GFR (CKD) 108.1 (60.0-200.0); Albumin 4.6 g/dL (3.8-4.9); Albumin/Globulin Ratio 2.26 (1.60-3.17); Alkaline Phosphatase 89 U/L (41-126); BUN/Creat Ratio 11.15 Ratio (12.00-20.00); Calcium 9.1 mg/dL (8.7-10.3); Carbon Dioxide 24.7 mmol/L (20.0-27.5); Chloride 108 mmol/L (96-109); Chol/HDL Ratio 2.76 Ratio; Glucose 103 mg/dL (70-110); Iron 98 ug/dL (65-175); LDL Cholesterol,Calculated 73.3 mg/dL (0.0-131.0); Non-African American GFR(CKD) 93.3 (60.0-200.0); Potassium 3.7 mmol/L (3.5-5.5); Sodium 144 mmol/L (135-145); Total Iron Binding Capacity 379 ug/dL (228-460); Total Protein 6.7 g/dL (6.2-8.2); VLDL Calculation 12.16 mg/dL (5.00-40.00)
== END | disposition home or self-care (01) ==
LOC: LABWHC1 13:34
PROVIDERS: ATTEND Family Medicine
DX: Z00.01 Encounter for general adult medical examination with abnormal findings (principal); Z12.5 Encounter for screening for malignant neoplasm of prostate; Z13.29 Encounter for screening for other suspected endocrine disorder; I10 Essential (primary) hypertension; E61.1 Iron deficiency; N28.1 Cyst of kidney, acquired; N40.1 Benign prostatic hyperplasia with lower urinary tract symptoms; G89.4 Chronic pain syndrome
CPT/HCPCS: 80061; 80053; 82728; 83540; 83550; 84443; 85025; 82306; 36415; G0103

== ENCOUNTER → 2021-12-13 | Outpatient (CLI) | payer MEDICARE ==
--- NOTE | 2021-12-13 11:07 | US ---
EXAMINATION TYPE: US kidneys/renal and bladder DATE OF EXAM: 12/13/2021 COMPARISON: CT 07/30/17 CLINICAL HISTORY: N281 CYST OF KIDNEY. EXAM MEASUREMENTS: Right Kidney: 11.8 x 6.7 x 5.8 cm Left Kidney: 12.2 x 6.7 x 6.4 cm Post Void Residual Volume: 57.4 mL Right Kidney: No hydronephrosis or masses seen Left Kidney: cysts seen: 1) upper, medial = 1.2 x 1.2 x 0.8 cm 2) Upper/mid = 1.9 x 2.3 x 1.3 cm 3) Mid = 1.8 x 1.6 x 0.3 cm 4) Upper/mid = 1.5 x 1.3 x 1.3 cm Bladder: wnl Bilateral Jets seen: Yes Normal Post Void Residual: No There is no evidence for hydronephrosis at this point in time. No nephrolithiasis is seen. No solid masses are identified. The urinary bladder is anechoic. Bilateral ureteral jets are seen. IMPRESSION: Renal cystic changes without evidence for distinct solid mass.
== END | disposition home or self-care (01) ==
LOC: RADUSWWP 10:22
PROVIDERS: ATTEND Family Medicine
DX: N28.1 Cyst of kidney, acquired (principal)
CPT/HCPCS: 76770

== ENCOUNTER 2022-10-16 10:52 | Day surgery (SDC) | payer MEDICARE ==
[~2022-10-16 10:52] MED LIST changes: -REGADENOSON 0.4 MG/5 ML SYRINGE IV PRN; +SODIUM CHLORIDE 0.9% 1,000 ML IV SCH
[2022-10-16] MEDS ORDERED: SODIUM CHLORIDE 0.9% 500 ML 500 ML IV ONE (11:04)
[2022-10-16 11:15] VITALS: RESP 16; TEMP 98.9
[2022-10-16] MEDS ORDERED: fentaNYL (PF) 50 MCG/ML 2 ML AMP ONE (11:33)
[2022-10-16] MEDS ORDERED: MIDAZOLAM 2 MG/2 ML VIAL IV ONE (11:43)
[2022-10-16] MEDS ORDERED: fentaNYL (PF) 50 MCG/1 ML VIAL IV ONE (11:45)
[2022-10-16] MEDS ORDERED: LIDOCAINE 1% INJ 10MG/ML (30 ML VIAL-PF) SQ ONE (11:47)
--- NOTE | 2022-10-16 12:12 | P.PCN ---
Description of Procedure: Procedure: Insertion of Linq loop recorder Indication: Greater than 3 second cause, episodes of lightheadedness, near syncope CONSENT:I have discussed the risks, benefits and alternative therapies for the above-mentioned procedure. The patient has indicated understanding and acceptance of the risks and procedures discussed. PROCEDURE: Patient was brought to the catheterization lab in a fasting state. Patient was prepped and draped in the usual fashion. 1% lidocaine was used to anesthetize the area of the left third intercostal space. Using the loop recorder incision device, a small 0.5 cm incision was made in the left 3rd intercostal space. Next the Linq loop recorder was deployed in the 3rd intercostal space subcutaneously using the insertion tool. Thresholds were checked and were excellent at 0.28V. Next the incision was closed using Dermabond. Steristrips were placed over the incision and the procedure was c ompleted. The patient tolerated the procedure well. The patient was transported to the post cath holding area in stable condition. Linq loop recorder serial number: [id number]
[2022-10-16 12:46] VITALS: BP 128/79; PULSE 56
== END 2022-10-16 12:49 | disposition home or self-care (01) ==
LOC: CATHEP 10:52
PROVIDERS: ATTEND Internal Medicine
DX: R06.02 Shortness of breath (principal); I10 Essential (primary) hypertension; E78.5 Hyperlipidemia, unspecified; Z82.49 Family history of ischemic heart disease and other diseases of the circulatory system; Z79.899 Other long term (current) drug therapy
CPT/HCPCS: 33285; C1764; J2250; J0690; J2001; J3010

== ENCOUNTER → 2023-08-05 | Outpatient (CLI) | payer MEDICARE ==
[2023-08-05 16:12] LABS: ALT 26 U/L (10-49); AST 17 U/L (14-35); Albumin 4.3 d/dL (3.8-4.9); Albumin/Globulin Ratio 1.95 Ratio (1.60-3.17); Alkaline Phosphatase 76 U/L (41-126); Calcium 9.1 mg/dL (8.7-10.3); Chloride 108 mmol/L (96-109); Globulin 2.2 d/dL (1.6-3.3); Glucose 123 mg/dL (70-110); Potassium 3.7 mmol/L (3.5-5.5); Sodium 142 mmol/L (135-145); Total Bilirubin 0.5 mg/dL (0.3-1.2); Total Protein 6.5 d/dL (6.2-8.2)
== END | disposition home or self-care (01) ==
LOC: LABWHC1 12:16
PROVIDERS: ATTEND Nurse Practitioner Family
DX: Z01.812 Encounter for preprocedural laboratory examination (principal)
CPT/HCPCS: 36415; 80053

== ENCOUNTER → 2023-09-05 | Outpatient (CLI) | payer MEDICARE ==
--- NOTE | 2023-09-05 12:47 | XR ---
EXAMINATION TYPE: XR chest 2V DATE OF EXAM: 09/05/2023 12:29 PM COMPARISON: Chest radiographs from 11/01/2020 TECHNIQUE: XR chest 2V Frontal and lateral views of the chest. CLINICAL INDICATION:Male, 63 years old with history of R07.9; FINDINGS: Lungs/Pleura: There is no evidence of pleural effusion, focal consolidation, or pneumothorax. Pulmonary vascularity: Unremarkable. Heart/mediastinum: Cardiomediastinal silhouette is unremarkable. Musculoskeletal: No acute osseous pathology. Partial visualization of lumbar and cervical fusion hard bedoya. Other: Left anterior chest wall loop recorder. IMPRESSION: No acute cardiopulmonary disease/process.
[2023-09-05 21:52] LABS: Basophils # (A) 0.05 X 10*3/uL (0.00-0.10); Basophils % (A) 0.9 %; Eosinophils # (A) 0.14 X 10*3/uL (0.04-0.35); Eosinophils % (A) 2.6 %; HCT 44.1 % (39.6-50.0); HGB 14.6 g/dL (13.0-17.0); Lymphocytes # (A) 1.27 X 10*3/uL (0.90-5.00); Lymphocytes % (A) 23.6 %; MCH 30.9 pg (27.0-32.0); MCHC 33.1 g/dL (32.0-37.0); MCV 93.4 FL (80.0-97.0); Mean Platelet Volume 10.5 FL (9.5-12.2); Monocytes # (A) 0.49 X 10*3/uL (0.20-1.00); Monocytes % (A) 9.1 %; NRBC Per 100 WBC 0 X 10*3/uL (0.00-0.01); Neutrophils # (A) 3.43 X 10*3/uL (1.80-7.70); Neutrophils % (A) 63.6 %; Platelet Count 256 X 10*3/uL (140-440); RBC 4.72 X 10*6/uL (4.40-5.60); RDW 12.7 % (11.5-14.5); WBC 5.39 X 10*3/uL (4.50-10.00)
[2023-09-05 21:53] LABS: ALT 35 U/L (10-49); AST 29 U/L (14-35); Albumin 4.4 g/dL (3.8-4.9); Albumin/Globulin Ratio 1.91 Ratio (1.60-3.17); Alkaline Phosphatase 76 U/L (41-126); BUN/Creat Ratio 15.38 Ratio (12.00-20.00); Blood Urea Nitrogen 12.3 mg/dL (9.0-27.0); Calcium 9.6 mg/dL (8.7-10.3); Carbon Dioxide 25.1 mmol/L (21.6-31.8); Chloride 108 mmol/L (96-109); Globulin 2.3 g/dL (1.6-3.3); Glucose 102 mg/dL (70-110); LDL Cholesterol,Calculated 77.5 mg/dL (0.0-131.0); Magnesium 2.2 mg/dL (1.5-2.4); Potassium 4.3 mmol/L (3.5-5.5); Sodium 144 mmol/L (135-145); Total Bilirubin 1.4 mg/dL (0.3-1.2); Total Protein 6.7 g/dL (6.2-8.2); VLDL Calculation 10.62 mg/dL (5.00-40.00)
[2023-09-05 22:03] LABS: PSA Annual Screen 0.668 ng/mL (0.000-4.000)
== END | disposition home or self-care (01) ==
LOC: LABWHC1 12:17
PROVIDERS: ATTEND Internal Medicine
DX: Z00.00 Encounter for general adult medical examination without abnormal findings (principal); Z12.5 Encounter for screening for malignant neoplasm of prostate; Z11.59 Encounter for screening for other viral diseases; N40.0 Benign prostatic hyperplasia without lower urinary tract symptoms; G57.93 Unspecified mononeuropathy of bilateral lower limbs; R07.9 Chest pain, unspecified; R06.09 Other forms of dyspnea
CPT/HCPCS: 86803; 80061; 80053; 84443; 82607; 82746; 83735; 85025; 71046; 36415; G0103

== ENCOUNTER → 2023-10-01 | Outpatient (CLI) | payer MEDICARE | LOC: CPPFTMAIN 10:18 | PROVIDERS: ATTEND Internal Medicine | DX: R06.09 Other forms of dyspnea (principal); Z88.8 Allergy status to other drugs, medicaments and biological substances; Z88.1 Allergy status to other antibiotic agents | CPT/HCPCS: 94060; 94726; 94729 ==

== ENCOUNTER 2023-10-04 07:07 | Day surgery (SDC) | payer MEDICARE ==
[2023-10-04] MEDS ORDERED: MIDAZOLAM 2 MG/2 ML VIAL IV PRN (07:22)
[2023-10-04] MEDS ORDERED: LACTATED RINGERS 1,000 ML IV SCH (07:22)
[2023-10-04] MEDS ORDERED: ONDANSETRON 4 MG/2 ML VIAL IVP ONE (07:22)
[2023-10-04] MEDS ORDERED: SCOPOLAMINE 1 MG/72 HR PATCH TRANSDERM ONE (07:22)
[2023-10-04 07:39] VITALS: RESP 16
[2023-10-04] MEDS ORDERED: GLYCOPYRROLATE 0.2 MG/ML 2 ML VIAL ONE (09:09)
[2023-10-04] MEDS ORDERED: fentaNYL (PF) 50 MCG/ML 2 ML AMP ONE (09:09)
[2023-10-04] MEDS ORDERED: ceFAZolin 1,000 MG in SODIUM CHLORIDE 0.9% 1,000 ML IRRIGATION ONE (09:09)
[2023-10-04] MEDS ORDERED: PROPOFOL 10 MG/ML 20 ML VIAL IV ONE (09:09)
[2023-10-04] MEDS ORDERED: ePHEDrine 50 MG/ML 1 ML VIAL ONE (09:09)
[2023-10-04] MEDS ORDERED: LIDOCAINE 1% INJ 10MG/ML (20 ML MDV) ONE (09:09)
[2023-10-04] MEDS ORDERED: MIDAZOLAM 2 MG/2 ML VIAL ONE (09:09)
[2023-10-04] MEDS ORDERED: BUPIVACAINE (PF) 0.5% 30 ML VIAL SQ ONE (09:22)
[2023-10-04] MEDS ORDERED: LACTATED RINGERS 1,000 ML IV ONE (10:14)
--- NOTE | 2023-10-04 10:37 | P.OP ---
Date of Procedure: 10/04/23 Preoperative Diagnosis: Primary osteoarthritis right first tarsometatarsal joint Postoperative Diagnosis: Same Procedure(s) Performed: First tarsometatarsal joint arthrodesis right foot Implants: [place] midtarsal arthrodesis plate and screws [employer] and [employer] Anesthesia: BENOITA Surgeon: Endy Fabian Estimated Blood Loss (ml): 3 Pathology: none sent Condition: stable Disposition: PACU Description of Procedure: The patient was brought into the operative suite and placed on table supine position. Timeout was taken to confirm correct patient identifiers, correct laterally surgery, and correct procedure. Once all staff in the room were in agreement with the timeout, the patient was induced and placed under general anesthesia. A well-padded tourniquet was placed on the right ankle and then 20 mL of 0.25% Marcaine was injected as a right ankle block. The right foot was then prepped and draped in the usual manner. The right foot was exsanguinated and the tourniquet inflated to 250 mmHg. Attention was directed over the medial side of the midfoot where a linear incision was made over the first tarsometatarsal joint. The incision was deepened down to the subcutaneous tissue careful to identify, avoid, and retract any neurovascular structures and cauterize any bleeding vessels. Blunt dissection was continued down to the joint capsule overlying the first tarsometatarsal joint. A linear capsular incision was made from dorsal to plantar to expose the joint. An osteotome was inserted into the joint to free up any soft tissue attachments. Then wires for distractor placed on either side of the joint and then the distractor was placed to open the joint to allow access. A rotary bur was then utilized to remove the subchondral bone down to bleeding medullary bone. Then the arthrodesis site was reduced and a 2 mm bur was used to plane the surfaces other was flat even contact. The same bur was then used to aggressively fenestrate the conjoining surfaces of the arthrodesis site. The wound is irrigated thoroughly with antibiotic saline. Approximate 3 mL's of augment was placed between the arthrodesis segments and then the distractor was removed. The guidewires for the distractor also removed. The template for the proposed plate for the fixation was in positioned medially across the arthrodesis site so that the laser line was over the joint surface. Then the wire was placed through the guide and then the template removed. The reamer was placed over the wire and then reamed up to proper depth. The guidewire was removed and then the plate was positioned across the arthrodesis site and temporarily fixated. Fluoroscopy was used to confirm the proper position of the plate in AP and lateral views. One locking and one nonlocking screw were placed in the distal holes. The drilling was done through the compression slot into the middle medial cuneiform. The compression screw was placed and advanced until it engaged the plate and the Saturday compression across the arthrodesis site. Fluoroscopy confirmed proper alignment the screw and compression of the arthrodesis site. The proximal holes 1 locking and 1 nonlocking screw placed. Final fluoroscopic imaging showed complete compression of the arthrodesis site with proper alignment and proper placement of hardware. The wound is irrigated with antibiotic saline. Deep closure done with 2-0 Vicryl. Subcu closure done for Monocryl. And skin closure done with 4-0 Stratafix in a running subcuticular manner. Dermal glue was applied Lunder dry then covered Steri-Strips and Arthrex jumpstart dressing and then a dry sterile dressing. The tourniquet was released capillary refill return to all digits on the right foot. Patient then placed in a well-padded, well molded plaster posterior mold/sugar tong splint ankle for all neutral position until split was dried. Anesthesia was then reversed and the patient taken recovery with vital signs stable
[2023-10-04] MEDS: HYDROmorphone 0.5 MG/0.5 ML SYRINGE IVP PRN ×2 (10:56→11:21)
[2023-10-04 11:01] VITALS: TEMP 98
[2023-10-04] MEDS ORDERED: HYDROcodone/APAP 7.5-325MG 1 EACH TAB ONE (11:50)
[2023-10-04 13:04] VITALS: BP 128/72; PULSE 65
== END 2023-10-04 12:52 | disposition home or self-care (01) ==
LOC: OR 07:07
PROVIDERS: ATTEND Podiatrist
DX: M19.071 Primary osteoarthritis, right ankle and foot (principal); I10 Essential (primary) hypertension; E78.5 Hyperlipidemia, unspecified; G47.33 Obstructive sleep apnea (adult) (pediatric); Z88.1 Allergy status to other antibiotic agents; Z88.8 Allergy status to other drugs, medicaments and biological substances; F10.90 Alcohol use, unspecified, uncomplicated; Z79.899 Other long term (current) drug therapy; K21.9 Gastro-esophageal reflux disease without esophagitis
CPT/HCPCS: 28740; C1713 ×2; J2250; J0690 ×2; J2405; J2001; J3010; J2704; J1170; J0665

== ENCOUNTER 2023-10-04 22:27 | Emergency (ER) | payer MEDICARE ==
[2023-10-04 22:50] VITALS: TEMP 98.2
[2023-10-04] MEDS ORDERED: HYDROmorphone 1 MG/ML 1 ML SYRINGE IM STA (23:10)
[2023-10-04] MEDS ORDERED: KETOROLAC 15 MG/ML 1 ML VIAL IM STA (23:30)
[2023-10-05 00:02] VITALS: RESP 18
--- NOTE | 2023-10-05 00:50 | ED ---
General Adult HPI - General Chief complaint: Extremity Injury, Lower Stated complaint: Severe pain from left foot surgrey Time Seen by Provider: 10/04/23 22:39 Source: patient, RN notes reviewed Mode of arrival: wheelchair Limitations: no limitations - History of Present Illness Initial comments: 63-year-old male with no significant past medical history presents the emergency department with a chief complaint of postop problem. Patient reports that he was seen at this facility on 10/14/2023 where he had a right first TMT joint arthrodesis performed by Dr. Fabian. He reports that his pain has not been managed up since being discharged. Taking [place] 7.5symptomatic improvement. Patient able to wiggle his toes although it causes him pain. - Related Data Home Medications Medication Instructions Recorded Confirmed lisinopriL [Zestril] 40 mg PO DAILY 05/22/16 10/04/23 Tamsulosin HCl [Flomax] 0.4 mg PO BID 06/12/16 10/04/23 Gabapentin 600 mg PO BID 02/05/17 10/04/23 amLODIPine [Norvasc] 5 mg PO DAILY 07/30/17 10/04/23 Vit A/Vit C/Vit E/Zinc/Copper 1 cap PO DAILY 08/06/18 10/04/23 [ICAPS SOFTGEL] HYDROcodone/APAP 5-325MG [[place] 1 tab PO Q6H PRN 10/16/18 10/04/23 5-325] Ascorbic Acid [Vitamin C] 1 tab PO DAILY 10/11/22 10/04/23 Cholecalciferol [Vitamin D3 (25 1 tab PO DAILY 10/11/22 10/04/23 Mcg = 1000 Iu)] Dupilumab [Dupixent Syringe] 300 mg SQ DIRECTED 10/11/22 10/04/23 Fexofenadine HCl 180 mg PO DAILY 10/11/22 10/04/23 Finasteride [Proscar] 5 mg PO HS 10/11/22 10/04/23 Fluticasone Propionate [Flonase 1 spray EA NOSTRIL DAILY 10/11/22 10/04/23 Allergy Relief] hydroCHLOROthiazide 25 mg PO DAILY 10/11/22 10/04/23 Azelastine HCl [Astelin Nasal 137 mcg NASAL DAILY PRN 05/13/23 10/04/23 [place]] Baclofen 10 mg PO BID PRN 05/13/23 10/04/23 tadalafiL 5 mg PO DAILY 05/13/23 10/04/23 Atorvastatin [Lipitor] 40 mg PO HS 10/01/23 10/04/23 Previous Rx's Medication Instructions Recorded Omeprazole [PriLOSEC] 40 mg PO DAILY #14 cap 05/22/23 HYDROcodone/APAP 7.5-325MG [[place] 1 tab PO Q6HR PRN #28 tab 10/04/23 7.5-325] Celecoxib [Celebrex] 400 mg PO Q6HR #15 cap 10/05/23 Allergies Allergy/AdvReac Type Severity Reaction Status Date / Time prednisone Allergy Itching Verified 10/04/23 22:32 azithromycin [From Zithromax] AdvReac yeast Verified 10/04/23 22:32 infection in throat Review of Systems ROS Statement: Those systems with pertinent positive or pertinent negative responses have been documented in the HPI. ROS Other: All systems not noted in ROS Statement are negative. Past Medical History Past Medical History: Chest Pain / Angina, GERD/Reflux, Hypertension, Osteoarthritis (OA), Prostate Disorder, Sleep Apnea/CPAP/BIPAP Additional Past Medical History / Comment(s): back pain, bulging discs in neck, ddd, spinal stenosis,scoliosis.shingles 5 years ago,doesn't use his cpap machine, neuropathy feet shortness of breath ,pain clinic procedures sadiq had loop placed due to heart stopping at night. History of Any Multi-Drug Resistant Organisms: None Reported Past Surgical History: Back Surgery, Orthopedic Surgery, Tonsillectomy Additional Past Surgical History / Comment(s): R and L shoulder surgery, R knee surgery x 2, sinus surg. injections to neck/back, radio frequency tx. HAS METAL IN BACK, COLONOSCOPY back surgery 5 levels neck 4 levels , egd, heart loop monitor Past Anesthesia/Blood Transfusion Reactions: Previous Problems w/ Anesthesia Additional Past Anesthesia/Blood Transfusion Reaction / Comment(s): had panic attack when waking up from. shoulder surg, was told it was because of nerve block Past Psychological History: No Psychological Hx Reported Smoking Status: Never smoker - Past Family History Mother Family Medical History: Dementia, Hypertension Additional Family Medical History / Comment(s): irregular heart beat, neuropathy Father Family Medical History: Dementia, Myocardial Infarction ([place]) General Exam - General Exam Comments Initial Comments: General: Alert, in no acute distress Head: atraumatic normocephalic. Eyes PERRL, EOMI intact, mucous membranes moist Respiratory: Lungs clear to auscultation bilaterally Cardiovascular: Heart rate regular rate and rhythm Abdominal: Soft without guarding or rebound Extremities: Normal inspection with full range of motion and normal capillary refill, Neuroogic: alert and oriented 3, CN II-XII intact, able to ambulate with steady gait Skin: warm dry and intact with normal color Limitations: no limitations Course Vital Signs 10/04/23 10/04/23 10/05/23 22:29 23:50 01:03 Temperature 98.2 F Pulse Rate 68 56 L 62 Respiratory 16 18 18 Rate Blood Pressure 128/74 117/63 114/65 O2 Sat by Pulse 95 97 97 Oximetry - Reevaluation(s) Reevaluation #1: 10/05/23 23:01 case is discussed with Dr. Ford who recommends pain management at this time. Reevaluation #2: 10/05/23 04:10 Case was discussed with Dr. Fabian, recommends readjusting the the splint and pain management and giving the patient toradol. Medical Decision Making - Medical Decision Making Was pt. sent in by a medical professional or institution (, PA, CERTIFIED HEARING INSTRUMENT DISPENSER, urgent care, hospital, or halfway...) When possible be specific @ -[No] Did you speak to anyone other than the patient for history (EMS, parent, family, police, friend...)? What history was obtained from this source @ -[No] Did you review nursing and triage notes (agree or disagree)? Why? @ -[I reviewed and agree with nursing and triage notes] Were old charts reviewed (outside hosp., previous admission, EMS record, old EKG, old radiological studies, urgent care reports/EKG's, halfway records)? Report findings @ Yes, procedural notes from 10/04/2023 Differential Diagnosis (chest pain, altered mental status, abdominal pain women, abdominal pain men, vaginal bleeding, weakness, fever, dyspnea, syncope, headache, dizziness, GI bleed, back pain, seizure, CVA, palpatations, mental health, musculoskeletal)? @ -[not applicable] EKG interpreted by me (3pts min.). @ -[As above] X-rays interpreted by me (1pt min.). @ -[None done] CT interpreted by me (1pt min.). @ -[None done] U/S interpreted by me (1pt. min.). @ -[None done] What testing was considered but not performed or refused? (CT, X-rays, U/S, labs)? Why? @ -[None] What meds were considered but not given or refused? Why? @ -[None] Did you discuss the management of the patient with other professionals (professionals i.e. DrCandelario, PA, CERTIFIED HEARING INSTRUMENT DISPENSER, lab, RT, psych nurse, mental health social worker, nailhead puncher, teacher, fire management officer, case therapist)? Give summary @ -Yes, Dr. Calle and Dr. Fabian ( see above) Was smoking cessation discussed for >3mins.? @ -[No] Was critical care preformed (if so, how long)? @ -[No] Were there social determinants of health that impacted care today? How? (Homelessness, low income, unemployed, alcoholism, drug addiction, transportation, low edu. Level, literacy, decrease access to med. care, [facility], rehab)? @ -[No] Was there de-escalation of care discussed even if they declined (Discuss DNR or withdrawal of care, Hospice)? DNR status @ -[No] What co-morbidities impacted this encounter? (DM, HTN, Smoking, COPD, CAD, Cancer, CVA, ARF, Chemo, Hep., AIDS, mental health diagnosis, sleep apnea, morbid obesity)? @ -[None] Was patient admitted / discharged? Hospital course, mention meds given and route, prescriptions, significant lab abnormalities, going to OR and other pertinent info. @ -[Discharge. This is a 63-year-old male presents the emergency department with postop pain. Patient was diagnosed and physical exam performed. Right lower extremity digits with normal cap refill, pink and dry. DP pulse is 2+. Case was discussed with Dr Fabian. who recommends adjusting right foot cast. Patient's cast was removed and adjusted with symptomatic improvement. Patient foot rewrapped which he tolerated well. He was provided Dilaudid was symptomatically improvement. Is also given Toradol. Return precautions discussed length. Discharged in stable condition. Case discussed with Dr. Beltran, ED attending who agrees with POC Undiagnosed new problem with uncertain prognosis? @ -[No] Drug Therapy requiring intensive monitoring for toxicity (Heparin, Nitro, Insuli n, Cardizem)? @ -[No] Were any procedures done? @ -[No] Diagnosis/symptom? @ -post-op pain Acute, or Chronic, or Acute on Chronic? @ -[default] Uncomplicated (without systemic symptoms) or Complicated (systemic symptoms)? @ -Uncomplicated Side effects of treatment? @ -[No] Exacerbation, Progression, or Severe Exacerbation? @ -[No] Poses a threat to life or bodily function? How? (Chest pain, USA, CT, pneumonia, PE, COPD, DKA, ARF, appy, cholecystitis, CVA, Diverticulitis, Homicidal, Suicidal, threat to staff... and all critical care pts) @ -Low likleihood Disposition Clinical Impression: Post-op pain, Right ankle pain Disposition: HOME SELF-CARE Condition: Stable Additional Instructions: PLeease follow up with Dr. Fabian at your follow up appointment PLease return to the nearest emergency department if worsening pain Prescriptions: Celecoxib [Celebrex] 400 mg PO Q6HR #15 cap Is patient prescribed a controlled substance at d/c from ED?: No Referrals: Alfonso Ibarra MD [Primary Care Provider] - 1-2 days Endy Fabian DPM [Doctor of Osteopathic Medicine] - 1-2 days Time of Disposition: 00:54
[2023-10-05] MEDS ORDERED: HYDROmorphone 0.5 MG/0.5 ML SYRINGE IM STA (01:02)
[2023-10-05 01:13] VITALS: BP 114/65; PULSE 62
== END 2023-10-05 01:43 | disposition home or self-care (01) ==
LOC: EC 22:27
DX: G89.18 Other acute postprocedural pain (principal); M79.672 Pain in left foot; I10 Essential (primary) hypertension; M19.90 Unspecified osteoarthritis, unspecified site; G47.30 Sleep apnea, unspecified; Z79.899 Other long term (current) drug therapy; Z88.8 Allergy status to other drugs, medicaments and biological substances
CPT/HCPCS: 99283; 96372 ×3; J1170 ×2; J1885

== ENCOUNTER 2024-03-16 13:07 | Day surgery (SDC) | payer MEDICARE ==
[2024-03-11 16:12] VITALS: BMI 29.5
--- NOTE | 2024-03-16 10:12 | P.GSHP ---
History of Present Illness H&P Date: 03/16/24 CHIEF COMPLAINT: GERD HISTORY OF PRESENT ILLNESS: The patient is a 64-year-old male who presents reports gastroesophageal reflux disease. Upper endoscopy was offered for further evaluation and management. PAST MEDICAL HISTORY: Please see list. PAST SURGICAL HISTORY: Please see list. MEDICATIONS: Please see list. ALLERGIES: Please see list. SOCIAL HISTORY: No illicit drug use FAMILY HISTORY: No reports of Crohn disease or ulcerative colitis. REVIEW OF ORGAN SYSTEMS: CONSTITUTIONAL: No reports of fevers or chills. GI: Denies any blood in stools or constipation. PHYSICAL EXAM: VITAL SIGNS: Stable GENERAL: Well-developed and pleasant in no acute distress. HEENT: No scleral icterus. Extraocular movements grossly intact. Moist buccal mucosa. NECK: Supple without lymphadenopathy. CHEST: Unlabored respirations. Equal bilateral excursions. CARDIOVASCULAR: Regular rate and rhythm. Distal 2+ pulses. ABDOMEN: Soft, nondistended. MUSCULOSKELETAL: No clubbing, cyanosis, or edema. ASSESSMENT: 1. Gastroesophageal reflux disease PLAN: 1. Recommend proceeding with an upper endoscopy Past Medical History Past Medical History: Chest Pain / Angina, GERD/Reflux, Hyperlipidemia, Hypertension, Osteoarthritis (OA), Prostate Disorder, Sleep Apnea/CPAP/BIPAP Additional Past Medical History / Comment(s): back pain, bulging discs in neck, ddd, spinal stenosis, scoliosis., shingles 5 years ago, doesn't use his cpap machine, neuropathy feet. States his heart stops every once in a while and has a Loop recorder. States have problems with his one foot- states needs some surgery for that. History of Any Multi-Drug Resistant Organisms: None Reported Past Surgical History: Back Surgery, Orthopedic Surgery, Tonsillectomy Additional Past Surgical History / Comment(s): R and L shoulder surgery, R knee surgery x 2, sinus surg.,injections to neck/back, HAS METAL IN BACK, COLONOSCOPY, back surgery- cervical and lumbar areas, egd, heart loop monitor. Past Anesthesia/Blood Transfusion Reactions: Previous Problems w/ Anesthesia Additional Past Anesthesia/Blood Transfusion Reaction / Comment(s): had a panic attack when waking up from. shoulder surg, was told it was because of nerve block Smoking Status: Never smoker - Past Family History Mother Family Medical History: Dementia, Hypertension Additional Family Medical History / Comment(s): irregular heart beat, neuropathy Father Family Medical History: Dementia, Myocardial Infarction ([place]) Medications and Allergies Home Medications Medication Instructions Recorded Confirmed Type lisinopriL [Zestril] 40 mg PO DAILY 05/22/16 03/11/24 History Tamsulosin HCl [Flomax] 0.4 mg PO BID 06/12/16 03/11/24 History Gabapentin 600 mg PO BID 02/05/17 03/11/24 History amLODIPine [Norvasc] 5 mg PO DAILY 07/30/17 03/11/24 History Vit A/Vit C/Vit E/Zinc/Copper 1 cap PO DAILY 08/06/18 03/11/24 History [ICAPS SOFTGEL] HYDROcodone/APAP 5-325MG [[place] 1 tab PO Q6H PRN 10/16/18 03/11/24 History 5-325] Ascorbic Acid [Vitamin C] 1 tab PO DAILY 10/11/22 03/11/24 History Cholecalciferol [Vitamin D3 (25 1 tab PO DAILY 10/11/22 03/11/24 History Mcg = 1000 Iu)] Dupilumab [Dupixent Syringe] 300 mg SQ DIRECTED 10/11/22 03/11/24 History Fexofenadine HCl 180 mg PO DAILY 10/11/22 03/11/24 History Finasteride [Proscar] 5 mg PO HS 10/11/22 03/11/24 History Fluticasone Propionate [Flonase 1 spray EA NOSTRIL DAILY 10/11/22 03/11/24 History Allergy Relief] hydroCHLOROthiazide 25 mg PO DAILY 10/11/22 03/11/24 History Azelastine HCl [Astelin Nasal 137 mcg NASAL DAILY PRN 05/13/23 03/11/24 History [place]] Baclofen 10 mg PO BID PRN 05/13/23 03/11/24 History tadalafiL 5 mg PO DAILY 05/13/23 03/11/24 History Atorvastatin [Lipitor] 40 mg PO HS 10/01/23 03/11/24 History Celecoxib [Celebrex] 400 mg PO Q6HR #15 cap 10/05/23 03/11/24 Rx Tiotropium 2.5 Mcg/Puff [Spiriva 1 puff INHALATION DAILY 03/11/24 03/11/24 History Respimat 2.5 Mcg] Allergies Allergy/AdvReac Type Severity Reaction Status Date / Time prednisone Allergy Itching Verified 03/11/24 14:56 azithromycin [From Zithromax] AdvReac yeast Verified 03/11/24 14:56 infection in throat
[2024-03-16] MEDS: LACTATED RINGERS 1,000 ML IV SCH (13:10)
[2024-03-16] MEDS: LIDOCAINE 1% (10MG/ML) FOR IV START INTRADERMA ONE (13:48)
[2024-03-16] MEDS ORDERED: PROPOFOL 10 MG/ML 20 ML VIAL IV ONE (14:13)
[2024-03-16 14:20] VITALS: RESP 16; TEMP 98.6
--- NOTE | 2024-03-16 14:42 | P.PCN ---
Date of Procedure: 03/16/24 Description of Procedure: PREOPERATIVE DIAGNOSIS: Gastroesophageal reflux disease. Gastric ulcers POSTOPERATIVE DIAGNOSIS: Gastroesophageal reflux disease. OPERATION: Esophagogastroduodenoscopy with biopsies along esophagus, antrum and duodenum SURGEON: Lolita Clay MD ANESTHESIA: MAC. INDICATIONS: The patient is a 64-year-old male who presents with reflux disease including recent history of gastric ulcers with abdominal pain. Benefits and risks of the procedure were described. Informed consent was obtained. DESCRIPTION: The patient was brought into the endoscopy suite and laid in the left lateral decubitus position. An Olympus gastroscope was passed along the posterior oropharynx down to the distal esophagus where the squamocolumnar junction was encountered at 43 cm from the incisors. The stomach was entered and no bile reflux was found. Additional findings are listed below. Biopsies with cold forceps were obtained of the antrum. The first through third portion of the duodenum was examined. Retroflexion of the scope confirmed Hill grade 1 lower esophageal valve. The squamocolumnar junction demonstrated LA grade B erosive esophagitis. The stomach was desufflated. The patient tolerated the procedure well. FINDINGS: Squamocolumnar junction 43 cm from the incisors. Diaphragmatic hiatus at 43 cm. Hill grade 1 lower esophageal valve. LA grade B erosive esophagitis. Biopsies obtained Biopsies obtained of the duodenum. Chronic gastritis with biopsies obtained. RECOMMENDATIONS: Upper endoscopy as needed. Plan - Discharge Summary Discharge Rx Participant: Yes New Discharge Prescriptions: Continue lisinopriL [Zestril] 40 mg PO DAILY Tamsulosin HCl [Flomax] 0.4 mg PO BID Gabapentin 600 mg PO BID amLODIPine [Norvasc] 5 mg PO DAILY Vit A/Vit C/Vit E/Zinc/Copper [ICAPS SOFTGEL] 1 cap PO DAILY HYDROcodone/APAP 5-325MG [[place] 5-325] 1 tab PO Q6H PRN PRN Reason: Pain Finasteride [Proscar] 5 mg PO HS Fluticasone Propionate [Flonase Allergy Relief] 1 spray EA NOSTRIL DAILY Cholecalciferol [Vitamin D3 (25 Mcg = 1000 Iu)] 1 tab PO DAILY Baclofen 10 mg PO BID PRN PRN Reason: Pain Celecoxib [Celebrex] 400 mg PO Q6HR #15 cap hydroCHLOROthiazide 25 mg PO DAILY Fexofenadine HCl 180 mg PO DAILY Dupilumab [Dupixent Syringe] 300 mg SQ DIRECTED Ascorbic Acid [Vitamin C] 1 tab PO DAILY tadalafiL 5 mg PO DAILY Azelastine HCl [Astelin Nasal [place]] 137 mcg NASAL DAILY PRN PRN Reason: Nasal Congestion Atorvastatin [Lipitor] 40 mg PO HS Tiotropium 2.5 Mcg/Puff [Spiriva Respimat 2.5 Mcg] 1 puff INHALATION DAILY Pantoprazole [Protonix] 40 mg PO DAILY Discharge Medication List lisinopriL [Zestril] 40 mg PO DAILY 05/22/16 [History] Tamsulosin HCl [Flomax] 0.4 mg PO BID 06/12/16 [History] Gabapentin 600 mg PO BID 02/05/17 [History] amLODIPine [Norvasc] 5 mg PO DAILY 07/30/17 [History] Vit A/Vit C/Vit E/Zinc/Copper [ICAPS SOFTGEL] 1 cap PO DAILY 08/06/18 [History] HYDROcodone/APAP 5-325MG [[place] 5-325] 1 tab PO Q6H PRN 10/16/18 [History] Ascorbic Acid [Vitamin C] 1 tab PO DAILY 10/11/22 [History] Cholecalciferol [Vitamin D3 (25 Mcg = 1000 Iu)] 1 tab PO DAILY 10/11/22 [History] Dupilumab [Dupixent Syringe] 300 mg SQ DIRECTED 10/11/22 [History] Fexofenadine HCl 180 mg PO DAILY 10/11/22 [History] Finasteride [Proscar] 5 mg PO HS 10/11/22 [History] Fluticasone Propionate [Flonase Allergy Relief] 1 spray EA NOSTRIL DAILY 10/11/22 [History] hydroCHLOROthiazide 25 mg PO DAILY 10/11/22 [History] Azelastine HCl [Astelin Nasal [place]] 137 mcg NASAL DAILY PRN 05/13/23 [History] Baclofen 10 mg PO BID PRN 05/13/23 [History] tadalafiL 5 mg PO DAILY 05/13/23 [History] Atorvastatin [Lipitor] 40 mg PO HS 10/01/23 [History] Celecoxib [Celebrex] 400 mg PO Q6HR #15 cap 10/05/23 [Rx] Tiotropium 2.5 Mcg/Puff [Spiriva Respimat 2.5 Mcg] 1 puff INHALATION DAILY 03/11/24 [History] Pantoprazole [Protonix] 40 mg PO DAILY 03/16/24 [History] Follow up Appointment(s)/Referral(s): Lolita Clay MD [STAFF PHYSICIAN] - 03/31/24 11:45 am Patient Instructions/Handouts: GERD (Gastroesophageal Reflux Disease) (GEN) Discharge Disposition: HOME SELF-CARE
[2024-03-16 15:18] VITALS: BP 152/84; PULSE 60
== END 2024-03-16 15:01 | disposition home or self-care (01) ==
LOC: ORWHC2ENDO 13:07
PROVIDERS: ATTEND Surgery Plastic and Reconstructive Surgery
DX: K29.50 Unspecified chronic gastritis without bleeding (principal); K21.00 Gastro-esophageal reflux disease with esophagitis, without bleeding; K25.9 Gastric ulcer, unspecified as acute or chronic, without hemorrhage or perforation; E78.5 Hyperlipidemia, unspecified; I10 Essential (primary) hypertension; M19.90 Unspecified osteoarthritis, unspecified site; G47.33 Obstructive sleep apnea (adult) (pediatric); Z82.49 Family history of ischemic heart disease and other diseases of the circulatory system; Z79.51 Long term (current) use of inhaled steroids; Z79.899 Other long term (current) drug therapy; Z88.1 Allergy status to other antibiotic agents
CPT/HCPCS: 43239; 88305; J2704

== ENCOUNTER → 2024-03-17 | Outpatient (CLI) | payer MEDICARE ==
--- NOTE | 2024-03-17 08:22 | US ---
EXAMINATION TYPE: US gallbladder DATE OF EXAM: 03/17/2024 COMPARISON: CT 2017 CLINICAL INDICATION: Male, 64 years old with history of R10.11 RIGHT UPPER QUADRANT PAIN; RUQ pain, k nown cholelithiasis TECHNIQUE: Multiple sonographic images of the right upper quadrant are obtained. FINDINGS: EXAM MEASUREMENTS: Liver Length: 16.1 cm Gallbladder Wall: 0.2 cm CBD: 0.4 cm Right Kidney: 10.7 x 5.3 x 5.2 cm Pancreas: obscured by overlying bowel gas Liver: limited visualization, scanned intercostally Gallbladder: 1.2cm non mobile stone in neck, seen on 2017 CT Evidence for sonographic Rdz's sign: no CBD: visualized portions wnl, limited by overlying bowel gas Right Kidney: wnl IMPRESSION: 1. No evidence for acute process. 2. Cholelithiasis.
== END | disposition home or self-care (01) ==
LOC: RADUSWWP 07:15
PROVIDERS: ATTEND Surgery Plastic and Reconstructive Surgery
DX: K80.20 Calculus of gallbladder without cholecystitis without obstruction (principal)
CPT/HCPCS: 76705

== ENCOUNTER → 2024-03-20 | Outpatient (CLI) | payer MEDICARE ==
--- NOTE | 2024-03-20 13:19 | NM ---
EXAMINATION TYPE: NM hepatobiliary w EF DATE OF EXAM: 03/20/2024 COMPARISON: NONE INDICATION: Right upper quadrant pain TECHNIQUE: After the intravenous administration of 5.23 mCi Tc 99m Mebrofenin hepatobiliary scintigra phy is performed. Images were obtained immediately post injection. FINDINGS: There is prompt uptake and excretion of radiotracer by the liver. Extrahepatic ducts are identified at 10 minutes. The gallbladder is visualized within 12 minutes. Small bowel activity is noted within 20 minutes. IMPRESSION: 1. Normal hepatobiliary scan
== END | disposition home or self-care (01) ==
LOC: RADNMMAIN 06:58
PROVIDERS: ATTEND Surgery Plastic and Reconstructive Surgery
DX: R10.11 Right upper quadrant pain (principal)
CPT/HCPCS: 78226; A9537

== ENCOUNTER 2024-04-02 14:33 | Day surgery (SDC) | payer MEDICARE ==
--- NOTE | 2024-04-02 13:19 | P.GSHP ---
History of Present Illness H&P Date: 04/02/24 CHIEF COMPLAINT: Cholecystitis HISTORY OF PRESENT ILLNESS: The patient is a 64-year-old male who presents with history of epigastric including right upper quadrant abdominal pain. He underwent diagnostic studies for the gallbladder. Separately his clinical picture was consistent with cholecystitis. Now he presents for surgical intervention. PAST MEDICAL HISTORY: Please see list PAST SURGICAL HISTORY: Please see list MEDICATIONS: Please see list ALLERGIES: Denies. SOCIAL HISTORY: No illicit drug use or recent tobacco use FAMILY HISTORY: Pertinent for gallbladder disease REVIEW OF ORGAN SYSTEMS: CONSTITUTIONAL: No reports of fevers or chills. HEENT: Denies any troubles with the vision or hearing. ENDOCRINE: No reports of hypothyroidism. No diabetes. RESPIRATORY: No recent pneumonias. CARDIOVASCULAR: Denies chest pain or palpitations GI: No blood in stools or constipation. MUSCULOSKELETAL: Has occasional joint pain including back pain. NEURO: No seizure disorders or headaches. No recent stroke. PSYCH: No depression or suicidal ideation. HEMATOLOGIC: No personal or family history of DVTs or pulmonary emboli. PHYSICAL EXAM: VITAL SIGNS: Afebrile vital signs stable GENERAL: Well-developed pleasant male in no acute distress. HEENT: No scleral icterus. Extraocular movements grossly intact. Moist buccal mucosa. NECK: Supple without lymphadenopathy. CHEST: Unlabored respirations. Equal bilateral excursions. CARDIOVASCULAR: Regular rate regular rhythm rhythm. Distal 2+ pulses. ABDOMEN: Soft, nondistended. Tender along the epigastrium and right upper quadrant. MUSCULOSKELETAL: No clubbing, cyanosis, or edema. NEURO : No focal or lateralizing signs. Cranial nerves II-12 within normal limits. PSYCH: Alert and oriented to person, place and time. SKIN: Well perfused. Good skin turgor. ASSESSMENT: 1. Epigastric and right upper quadrant abdominal pain 2. Chronic cholecystitis PLAN: 1. Will need a robotic cholecystectomy possible open. Benefits and risks were described. 2. Heparin for DVT prophylaxis 5000 units. 3. Antibiotic prophylaxis. 4. CBC and CMP on day of procedure 5. Non-narcotic pre and post op pain management reviewed. 6. Indocyanine green for biliary imaging. Past Medical History Past Medical History: Chest Pain / Angina, GERD/Reflux, Hyperlipidemia, Hypertension, Osteoarthritis (OA), Prostate Disorder, Sleep Apnea/CPAP/BIPAP Additional Past Medical History / Comment(s): back pain, bulging discs in neck, ddd, spinal stenosis, scoliosis.,hx shingles , doesn't use his cpap machine, neuropathy feet goes up his legs. balance issues at times. States his heart stops every once in a while and has a Loop recorder. 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 History of Any Multi-Drug Resistant Organisms: None Reported Past Surgical History: Back Surgery, Orthopedic Surgery, Tonsillectomy Additional Past Surgical History / Comment(s): R and L shoulder surgery, R knee surgery x 2, sinus surg.,injections to neck/back, HAS METAL IN BACK, COLONOSCOPY, back surgery- cervical and lumbar areas, egd, heart loop monitor. rt foot sugery with plate Past Anesthesia/Blood Transfusion Reactions: Previous Problems w/ Anesthesia Additional Past Anesthesia/Blood Transfusion Reaction / Comment(s): had a panic attack when waking up from. shoulder surg, was told it was because of nerve block Smoking Status: Former smoker, Light tobacco smoker - Past Family History Mother Family Medical History: Dementia, Hypertension Additional Family Medical History / Comment(s): irregular heart beat, neuropathy Father Family Medical History: Dementia, Myocardial Infarction (MS) Medications and Allergies Home Medications Medication Instructions Recorded Confirmed Type lisinopriL [Zestril] 40 mg PO DAILY 05/22/16 04/01/24 History Tamsulosin HCl [Flomax] 0.4 mg PO BID 06/12/16 04/01/24 History Gabapentin 600 mg PO BID 02/05/17 04/01/24 History amLODIPine [Norvasc] 5 mg PO DAILY 07/30/17 04/01/24 History Vit A/Vit C/Vit E/Zinc/Copper 1 cap PO DAILY 08/06/18 04/01/24 History [ICAPS SOFTGEL] HYDROcodone/APAP 5-325MG [[place] 1 tab PO Q6H PRN 10/16/18 04/01/24 History 5-325] Ascorbic Acid [Vitamin C] 1 tab PO DAILY 10/11/22 04/01/24 History Cholecalciferol [Vitamin D3 (25 1 tab PO DAILY 10/11/22 04/01/24 History Mcg = 1000 Iu)] Dupilumab [Dupixent Syringe] 300 mg SQ Q14D 10/11/22 04/01/24 History Fexofenadine HCl 180 mg PO DAILY 10/11/22 04/01/24 History Finasteride [Proscar] 5 mg PO HS 10/11/22 04/01/24 History Fluticasone Propionate [Flonase 1 spray EA NOSTRIL DAILY 10/11/22 04/01/24 History Allergy Relief] hydroCHLOROthiazide 25 mg PO DAILY 10/11/22 04/01/24 History Azelastine HCl [Astelin Nasal 137 mcg NASAL DAILY PRN 05/13/23 04/01/24 History [place]] Baclofen 10 mg PO BID PRN 05/13/23 04/01/24 History tadalafiL 5 mg PO DAILY 05/13/23 04/01/24 History Atorvastatin [Lipitor] 40 mg PO HS 10/01/23 04/01/24 History Tiotropium 2.5 Mcg/Puff [Spiriva 1 puff INHALATION DAILY 03/11/24 04/01/24 History Respimat 2.5 Mcg] Pantoprazole [Protonix] 40 mg PO DAILY 03/16/24 04/01/24 History Celecoxib [Celebrex] 400 mg PO DAILY 04/01/24 04/01/24 History Allergies Allergy/AdvReac Type Severity Reaction Status Date / Time prednisone Allergy Itching Verified 04/01/24 09:48 azithromycin [From Zithromax] AdvReac yeast Verified 04/01/24 09:48 infection in throat
[~2024-04-02 14:33] MED LIST changes: +HYDROmorphone 0.5 MG/0.5 ML SYRINGE IVP PRN; +INDOCYANINE GREEN 25 MG VIAL IV STA; +LIDOCAINE 1% (10MG/ML) FOR IV START INTRADERMA PRN; +MIDAZOLAM 2 MG/2 ML VIAL IV PRN; -SODIUM CHLORIDE 0.9% 1,000 ML IV SCH; +fentaNYL (PF) 50 MCG/ML 2 ML AMP IV PRN
[2024-04-02 15:17] VITALS: RESP 18
[2024-04-02] MEDS: LACTATED RINGERS 1,000 ML IV SCH (15:21)
[2024-04-02] MEDS: ONDANSETRON 4 MG/2 ML VIAL IVP PRN (15:21)
[2024-04-02] MEDS: DEXAMETHASONE SOD PHOSPHATE 4 MG/ML 1 ML VIAL IV ONE (15:21)
[2024-04-02] MEDS: ACETAMINOPHEN TAB 500 MG TAB PO PRN (15:21)
[2024-04-02] MEDS: HEPARIN SODIUM,PORCINE 5,000 UNIT/ML 1 ML VIAL SQ PRN (15:21)
[2024-04-02 15:23] LABS: Basophils # (A) 0.1 k/uL (0-0.2); Basophils % (A) 1 %; Eosinophils # (A) 0.3 k/uL (0-0.7); Eosinophils % (A) 5 %; HCT 43.8 % (39.0-53.0); HGB 14.5 gm/dL (13.0-17.5); Lymphocytes # (A) 1.5 k/uL (1.0-4.8); Lymphocytes % (A) 24 %; MCH 29.5 pg (25.0-35.0); MCHC 33.1 g/dL (31.0-37.0); MCV 89.1 fL (80.0-100.0); Mean Platelet Volume 7.9; Monocytes # (A) 0.5 k/uL (0-1.0); Monocytes % (A) 7 %; Neutrophils % (A) 62 %; Platelet Count 261 k/uL (150-450); RBC 4.92 m/uL (4.30-5.90); RDW 12.6 % (11.5-15.5); WBC 6.5 k/uL (3.8-10.6)
[2024-04-02] MEDS: IV FLUID CONTINUATION 1,000 ML IV ONE (15:34)
[2024-04-02 16:08] LABS: ALT 23 U/L (4-49); AST 26 U/L (17-59); African American GFR (CKD) >90 (>60 ml/min/1.73 sqM); Albumin 3.8 g/dL (3.5-5.0); Alkaline Phosphatase 89 U/L (38-126); Anion Gap 3 mmol/L; Blood Urea Nitrogen 12 mg/dL (9-20); Calcium 8.8 mg/dL (8.4-10.2); Carbon Dioxide 27 mmol/L (22-30); Chloride 110 mmol/L (98-107); Glucose 97 mg/dL (74-99); Non-African American GFR(CKD) >90 (>60 ml/min/1.73 sqM); Potassium 3.2 mmol/L (3.5-5.1); Sodium 140 mmol/L (137-145); Total Bilirubin 1.4 mg/dL (0.2-1.3); Total Protein 6.1 g/dL (6.3-8.2)
[2024-04-02] MEDS ORDERED: ROCURONIUM 10 MG/ML (5 ML VIAL) IV ONE (16:16)
[2024-04-02] MEDS ORDERED: HYDROmorphone (PF) 1 MG/ML ONE (16:16)
[2024-04-02] MEDS ORDERED: GLYCOPYRROLATE 0.2 MG/ML 2 ML VIAL ONE (16:16)
[2024-04-02] MEDS ORDERED: ePHEDrine 50 MG/ML 1 ML VIAL ONE (16:16)
[2024-04-02] MEDS ORDERED: LIDOCAINE 1% INJ 10MG/ML (20 ML MDV) ONE (16:16)
[2024-04-02] MEDS ORDERED: SUCCINYLCHOLINE CHLORIDE 200 MG/10 ML VIAL IV ONE (16:16)
[2024-04-02] MEDS ORDERED: MIDAZOLAM 2 MG/2 ML VIAL ONE (16:16)
[2024-04-02] MEDS ORDERED: fentaNYL (PF) 50 MCG/ML 2 ML AMP ONE (16:16)
[2024-04-02] MEDS ORDERED: WATER FOR INJECTION, STERILE 10 ML VIAL IV ONE (16:16)
[2024-04-02] MEDS ORDERED: PROPOFOL 10 MG/ML 20 ML VIAL IV ONE (16:16)
[2024-04-02] MEDS ORDERED: NEOSTIGMINE 1 MG/ML 10 ML VIAL ONE (16:16)
[2024-04-02] MEDS ORDERED: KETOROLAC 15 MG/ML 1 ML VIAL ONE (16:16)
[2024-04-02] MEDS ORDERED: PHENYLEPHRINE 10 MG/ML VIAL ONE (16:16)
[2024-04-02] MEDS: LIDOCAINE 1%-EPI 1:100,000 20 ML VIAL SQ ONE (16:45)
[2024-04-02 17:51] VITALS: TEMP 97.5
[2024-04-02] MEDS: METOCLOPRAMIDE 5 MG/ML 2 ML VIAL IVP PRN (18:03)
[2024-04-02 18:33] VITALS: BP 136/70; PULSE 89
--- NOTE | 2024-04-07 10:14 | P.OP ---
Date of Procedure: 04/02/24 Description of Procedure: SURGEON: LOLITA CLAY MD PREOPERATIVE DIAGNOSES: 1. Symptomatic gallstones 2. Right upper quadrant abdominal pain 3. Hypertensive heart disease 4. Chronic obstructive pulmonary disease due to asthma 5. Gastroesophageal reflux disease 6. Obstructive uropathy due to prostate disorder 7. Chronic pain syndrome 8. Hyperlipidemia 9. Obstructive sleep apnea 10. Spinal stenosis 11. Neuropathy POSTOPERATIVE DIAGNOSES: 1. Symptomatic gallstones 2. Right upper quadrant abdominal pain 3. Hypertensive heart disease 4. Chronic obstructive pulmonary disease due to asthma 5. Gastroesophageal reflux disease 6. Obstructive uropathy due to prostate disorder 7. Chronic pain syndrome 8. Hyperlipidemia 9. Obstructive sleep apnea 10. Spinal stenosis 11. Neuropathy OPERATION: 1. Robotic-assisted da Eve Xi laparoscopic lysis of adhesions over 50% of the case 2. Robotic-assisted da Eve Xi laparoscopic cholecystectomy, multiport with FIREFLY ESTIMATED BLOOD LOSS: 5 mL. SPECIMENS REMOVED: Gallbladder. COMPLICATIONS: None. OPERATIVE FINDINGS: 1. Mildly dilated common bile duct. 2. Epigastric adhesions requiring lysis of adhesions less than 50% of the case. 3. Patient denied any pre-existing history of surgeries or injuries to the abdomen with features of congenital adhesive band disease INDICATIONS: The patient is a 64-year-old male who presents with symptomatic gallstones. Robotic assisted laparoscopic approach was described. Benefits and risks of the procedure including but not limited to bleeding, infection, injury to the biliary tree was described. Informed consent was obtained. DESCRIPTION OF PROCEDURE: Patient was brought to the operating room, placed in supine position. After general induction, the abdomen had been prepped and draped in standard sterile fashion. The robotic da Eve XI system was primed. After a timeout protocol was performed, the patient had been prepped and draped in standard sterile fashion. The patient was injected with indocyanine green. A 5 mm 0 degrees laparoscopic trocar entry was performed along the left upper quadrant. The abdomen insufflated to 15 mmHg pressure which was tolerated well. Diagnostic laparoscopy demonstrated no injury to bowel viscera or mesentery. The liver surface was remarkable with mild fatty liver disease. Next, two 8 mm robotic ports were placed along the right upper abdomen. The camera 8-mm port was maintained along the epigastrium. Another 8 mm port was placed along the left upper abdominal wall after exchanging the 5 mm port. Please note that the ports were placed at least 10 to 15 cm away from the target anatomy of the gallb ladder. The robot was docked along the left lateral abdomen. The patient was repositioned in reverse Trendelenburg position. Using a grasper for arm 3, a grasper for arm 4, including hook cautery for arm 1, the robotic system was docked and primed as described. Instruments were interchanged by the speech assistant including hook cautery, Bovie cautery and clip appliers. I had sat at the console. Moderate adhesions over the epigastrium was found omentum to the abdominal wall of unclear etiology. Using hook artery, extensive lysis of adhesions performed for over 50% of the case. Next attention was brought to the infundibulum and cystic structures. Dome down technique was performed from the gallbladder fundus towards the infundibulum using hook artery. The infundibulum and cystic duct were dissected free from surrounding tissues. The cystic duct was isolated. FIREFLY was used to identify the cystic artery and cystic structures. A critical view of safety was obtained. Large PLASTIC clips were used throughout the entire case. Using a clip pattern developer, 3 clips were placed at the junction of the infundibulum and cystic duct. The cystic duct was divided between clips. Next, the cystic artery was similarly clipped and cauterized. Electro-Bovie cautery was used to remove the gallbladder from the hepatic fossa. Hemostasis was checked and found to be adequate. The robot was undocked. I re-scrubbed into the case. Using a 10 mm Endo Catch bag via the left upper quadrant incision, the specimen was removed from the abdominal cavity and the fascia was closed using 0 Vicryl and Evan Taylor.. All pneumoperitoneum instruments were evacuated from the abdominal cavity. The incisions were reapproximated using 4-0 Monocryl in an interrupted subcuticular fashion. Please note along the trocar sites, local anesthetic was placed as a field block prior to insertion of all instruments. Liquid glue was applied to the skin. At the end of the procedure needle, sponge, and instrument count had been verified correct by the surgical physician assistant. The patient was transferred to postanesthesia care unit in stable condition. Intraoperative films were shared with the patient's family. A 10 mm Endo Catch bag was used to remove the gallbladder in total via the left upper quadrant incision after widening the incision. The specimen was removed from the abdominal cavity. All pneumoperitoneum instruments were evacuated from the abdominal cavity. The incisions were cleansed using dilute hydrogen peroxide. The incisions were reapproximated using 4-0 Monocryl in an interrupted subcuticular fashion. Please note along the trocar sites, local anesthetic was placed as a field block prior to insertion of all instruments. Liquid glue was applied to the skin. At the end of the procedure needle, sponge, and instrument count had been verified correct by the surgical physician assistant. The patient was transferred to postanesthesia care unit in stable condition. Intraoperative films were shared with the patient's family who were pleased with the level of care. Plan - Discharge Summary Discharge Rx Participant: No New Discharge Prescriptions: New Simethicone [Gas-X] 125 mg PO AC-TID PRN #20 capsule PRN Reason: Pain Acetaminophen Tab [Tylenol Tab] 1,000 mg PO Q6HR PRN #30 tablet PRN Reason: Pain Continue lisinopriL [Zestril] 40 mg PO DAILY Tamsulosin HCl [Flomax] 0.4 mg PO BID Gabapentin 600 mg PO BID amLODIPine [Norvasc] 5 mg PO DAILY Vit A/Vit C/Vit E/Zinc/Copper [ICAPS SOFTGEL] 1 cap PO DAILY HYDROcodone/APAP 5-325MG [Jack 5-325] 1 tab PO Q6H PRN PRN Reason: Pain Finasteride [Proscar] 5 mg PO HS Fluticasone Propionate [Flonase Allergy Relief] 1 spray EA NOSTRIL DAILY Cholecalciferol [Vitamin D3 (25 Mcg = 1000 Iu)] 1 tab PO DAILY Baclofen 10 mg PO BID PRN PRN Reason: Pain Celecoxib [Celebrex] 400 mg PO DAILY hydroCHLOROthiazide 25 mg PO DAILY Fexofenadine HCl 180 mg PO DAILY Dupilumab [Dupixent Syringe] 300 mg SQ Q14D Ascorbic Acid [Vitamin C] 1 tab PO DAILY tadalafiL 5 mg PO DAILY Azelastine HCl [Astelin Nasal [place]] 137 mcg NASAL DAILY PRN PRN Reason: Nasal Congestion Atorvastatin [Lipitor] 40 mg PO HS Tiotropium 2.5 Mcg/Puff [Spiriva Respimat 2.5 Mcg] 1 puff INHALATION DAILY Pantoprazole [Protonix] 40 mg PO DAILY Discharge Medication List lisinopriL [Zestril] 40 mg PO DAILY 07/26/16 [History] Tamsulosin HCl [Flomax] 0.4 mg PO BID 06/12/16 [History] Gabapentin 600 mg PO BID 02/05/17 [History] amLODIPine [Norvasc] 5 mg PO DAILY 07/30/17 [History] Vit A/Vit C/Vit E/Zinc/Copper [ICAPS SOFTGEL] 1 cap PO DAILY 08/06/18 [History] HYDROcodone/APAP 5-325MG [Jack 5-325] 1 tab PO Q6H PRN 10/16/18 [History] Ascorbic Acid [Vitamin C] 1 tab PO DAILY 10/11/22 [History] Cholecalciferol [Vitamin D3 (25 Mcg = 1000 Iu)] 1 tab PO DAILY 10/11/22 [History] Dupilumab [Dupixent Syringe] 300 mg SQ Q14D 10/11/22 [History] Fexofenadine HCl 180 mg PO DAILY 10/11/22 [History] Finasteride [Proscar] 5 mg PO HS 10/11/22 [History] Fluticasone Propionate [Flonase Allergy Relief] 1 spray EA NOSTRIL DAILY 10/11/22 [History] hydroCHLOROthiazide 25 mg PO DAILY 10/11/22 [History] Azelastine HCl [Astelin Nasal [place]] 137 mcg NASAL DAILY PRN 05/13/23 [History] Baclofen 10 mg PO BID PRN 05/13/23 [History] tadalafiL 5 mg PO DAILY 05/13/23 [History] Atorvastatin [Lipitor] 40 mg PO HS 10/01/23 [History] Tiotropium 2.5 Mcg/Puff [Spiriva Respimat 2.5 Mcg] 1 puff INHALATION DAILY 03/11/24 [History] Pantoprazole [Protonix] 40 mg PO DAILY 03/16/24 [History] Celecoxib [Celebrex] 400 mg PO DAILY 04/01/24 [History] Acetaminophen Tab [Tylenol Tab] 1,000 mg PO Q6HR PRN #30 tablet 04/02/24 [Rx] Simethicone [Gas-X] 125 mg PO AC-TID PRN #20 capsule 04/02/24 [Rx] Follow up Appointment(s)/Referral(s): Lolita Clay MD [STAFF PHYSICIAN] - 04/07/24 6:00 pm (Telehealth) Patient Instructions/Handouts: *Surgery [facility] - (Anesthesia) Discharge Instructions Outpatient Surgery, Low Fat Diet (DC), Laparoscopic Cholecystectomy (DC) Activity/Diet/Wound Care/Special Instructions: TELEHEALTH - DR WILL CALL YOU BETWEEN 6 pm to 8 pm NO LONG DRIVES OR AIRPLANE RIDES OVER 30 MINUTES FOR THE NEXT 2 WEEKS DUE TO HIGH RISK OF PULMONARY EMBOLISM/DVTs Recommend low-fat diet for the next 2 days. No lifting over 10 pounds in 2 weeks until April 16February shower. No bath tub soaks, hot tub soaks, swimming for two weeks until April 16 Diet as tolerated. Use Tylenol, simethicone and ibuprofen or Aleve scheduled for the next 24-48 hours for best pain relief. Use ice along incisions for today to prevent swelling. Discharge Disposition: HOME SELF-CARE
== END 2024-04-02 19:44 | disposition home or self-care (01) ==
LOC: OR 14:33
PROVIDERS: ATTEND Surgery Plastic and Reconstructive Surgery
DX: K80.12 Calculus of gallbladder with acute and chronic cholecystitis without obstruction (principal); K66.0 Peritoneal adhesions (postprocedural) (postinfection); I11.9 Hypertensive heart disease without heart failure; J44.9 Chronic obstructive pulmonary disease, unspecified; K21.9 Gastro-esophageal reflux disease without esophagitis; N40.1 Benign prostatic hyperplasia with lower urinary tract symptoms; N13.8 Other obstructive and reflux uropathy; G47.33 Obstructive sleep apnea (adult) (pediatric); E78.5 Hyperlipidemia, unspecified; G89.4 Chronic pain syndrome; G62.9 Polyneuropathy, unspecified; M48.00 Spinal stenosis, site unspecified; I25.119 Atherosclerotic heart disease of native coronary artery with unspecified angina pectoris; Z88.1 Allergy status to other antibiotic agents; Z88.8 Allergy status to other drugs, medicaments and biological substances; Z87.891 Personal history of nicotine dependence; Z79.899 Other long term (current) drug therapy; Z79.51 Long term (current) use of inhaled steroids
CPT/HCPCS: 47562; 49329; C9776; S2900; 80053; 85025; 88304

== ENCOUNTER 2024-05-10 16:00 | Emergency (ER) | payer MEDICARE ==
[2024-05-10 16:05] VITALS: RESP 20; TEMP 97.8
--- NOTE | 2024-05-10 16:49 | ED ---
General Adult HPI - General Chief complaint: Dizziness Stated complaint: Dizzy weakness Time Seen by Provider: 05/10/24 16:25 Source: patient, RN notes reviewed, old records reviewed Mode of arrival: ambulatory Limitations: no limitations - History of Present Illness Initial comments: Patient is a 64-year-old male who presents emergency department complaining of an episode of lightheadedness and dizziness. Has a history of this previously. Currently has a loop monitor in for the last 2 years. Has a history of a temporary sinus pause lasting approximately 4 seconds. Since loop recorder is benign, events have been relatively not a current per patient. Still his loop monitor him. States he has these episodes of near syncope in the past. The one today lasted slightly longer than normal which is why he is here for presentation. Patient has been camping recently, and is outside on this hot day 90 degree heat that is humid. States that he was sitting eating when he felt lightheaded, sweaty. He sat down and laid down and felt improved. Total episode lasted approximate 10 minutes. States he had some mild tunnel like symptoms where his vision but that all resolved. Denies any chest pain or shortness of breath during these episodes. Denies any nausea or vomiting during this episode. Denies any fevers or chills. Does endorse some recent nasal congestion. Does have a history of vertigo in the past. Describes this as more of a lightheadedness sensation of the room spinning and states that it resolves when he lays down. Currently does not have symptoms. Does have chronic neuropathy of bilateral lower extremities. Does endorse some mild generalized weakness but no focal weakness. Denies any recent trauma. Is not on blood thinners. Presents for further evaluation at this time. Recently had a cholecystectomy. - Related Data Home Medications Medication Instructions Recorded Confirmed lisinopriL [Zestril] 40 mg PO DAILY 05/22/16 04/02/24 Tamsulosin HCl [Flomax] 0.4 mg PO BID 06/12/16 04/02/24 Gabapentin 600 mg PO BID 02/05/17 04/02/24 amLODIPine [Norvasc] 5 mg PO DAILY 07/30/17 04/02/24 Vit A/Vit C/Vit E/Zinc/Copper 1 cap PO DAILY 08/06/18 04/02/24 [ICAPS SOFTGEL] HYDROcodone/APAP 5-325MG [[place] 1 tab PO Q6H PRN 10/16/18 04/02/24 5-325] Ascorbic Acid [Vitamin C] 1 tab PO DAILY 10/11/22 04/02/24 Cholecalciferol [Vitamin D3 (25 1 tab PO DAILY 10/11/22 04/02/24 Mcg = 1000 Iu)] Dupilumab [Dupixent Syringe] 300 mg SQ Q14D 10/11/22 04/02/24 Fexofenadine HCl 180 mg PO DAILY 10/11/22 04/02/24 Finasteride [Proscar] 5 mg PO HS 10/11/22 04/02/24 Fluticasone Propionate [Flonase 1 spray EA NOSTRIL DAILY 10/11/22 04/02/24 Allergy Relief] hydroCHLOROthiazide 25 mg PO DAILY 10/11/22 04/02/24 Azelastine HCl [Astelin Nasal 137 mcg NASAL DAILY PRN 05/13/23 04/02/24 [place]] Baclofen 10 mg PO BID PRN 05/13/23 04/02/24 tadalafiL 5 mg PO DAILY 05/13/23 04/02/24 Atorvastatin [Lipitor] 40 mg PO HS 10/01/23 04/02/24 Tiotropium 2.5 Mcg/Puff [Spiriva 1 puff INHALATION DAILY 03/11/24 04/02/24 Respimat 2.5 Mcg] Pantoprazole [Protonix] 40 mg PO DAILY 03/16/24 04/02/24 Celecoxib [Celebrex] 400 mg PO DAILY 04/01/24 04/02/24 Previous Rx's Medication Instructions Recorded Acetaminophen Tab [Tylenol Tab] 1,000 mg PO Q6HR PRN #30 tablet 04/02/24 Simethicone [Gas-X] 125 mg PO AC-TID PRN #20 capsule 04/02/24 Potassium Chloride ER [K-Dur 20] 20 meq PO DAILY 2 Days #2 tab 05/10/24 Allergies Allergy/AdvReac Type Severity Reaction Status Date / Time prednisone Allergy Itching Verified 05/10/24 16:04 azithromycin [From Zithromax] AdvReac yeast Verified 05/10/24 16:04 infection in throat Review of Systems ROS Statement: Those systems with pertinent positive or pertinent negative responses have been documented in the HPI. Review of Systems: CONST: Denies fever EYES: Denies blurry vision ENT: Endorses nasal congestion C/V: Denies Chest pain RESP: Denies shortness of breath GI: Denies abdominal pain : Denies dysuria SKIN: Denies rash. MSK: Denies joint pain. NEURO: Denies headache ROS Other: All systems not noted in ROS Statement are negative. Past Medical History Past Medical History: Chest Pain / Angina, GERD/Reflux, Hyperlipidemia, Hypertension, Osteoarthritis (OA), Prostate Disorder, Sleep Apnea/CPAP/BIPAP Additional Past Medical History / Comment(s): back pain, bulging discs in neck, ddd, spinal stenosis, scoliosis.,hx shingles , doesn't use his cpap machine, neuropathy feet goes up his legs. balance issues at times. States his heart stops every once in a while and has a Loop recorder. 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 History of Any Multi-Drug Resistant Organisms: None Reported Past Surgical History: Back Surgery, Orthopedic Surgery, Tonsillectomy Additional Past Surgical History / Comment(s): R and L shoulder surgery, R knee surgery x 2, sinus surg.,injections to neck/back, HAS METAL IN BACK, COLONOSCOPY, back surgery- cervical and lumbar areas, egd, heart loop monitor. rt foot sugery with plate Past Anesthesia/Blood Transfusion Reactions: Previous Problems w/ Anesthesia Additional Past Anesthesia/Blood Transfusion Reaction / Comment(s): had a panic attack when waking up from. shoulder surg, was told it was because of nerve block Past Psychological History: No Psychological Hx Reported Smoking Status: Former smoker, Light tobacco smoker Past Alcohol Use History: Rare Past Drug Use History: None Reported - Past Family History Mother Family Medical History: Dementia, Hypertension Additional Family Medical History / Comment(s): irregular heart beat, neuropathy Father Family Medical History: Dementia, Myocardial Infarction (HI) General Exam - General Exam Comments Initial Comments: General: Appears in no acute distress. HEAD: Normal with no signs of head trauma. EYES: PERRLA, EOMI, conjunctiva normal, no discharge. Pupils are 2 to 3 mm and equal bilaterally. ENT: Hearing grossly intact, normal oropharynx. RESPIRATORY: Clear breath sounds bilaterally. No wheezes, rales, or rhonchi. C/V: Regular rate and rhythm. S1 and S2 auscultated, no edema, peripheral pulses 2+ and intact throughout ABD: Abd is soft, nontender, nondistended EXT: Normal range of motion, no obvious deformity SKIN: No rashes or lesions observed on exposed skin. NEURO: Alert and oriented x 4. Cranial nerves II-XII intact. No focal sensory or strength deficits. NIH of 0. GCS of 15. Cerebellar function intact as evident by normal finger-nose testing and heel quezada testing. Limitations: no limitations Course Vital Signs 05/10/24 05/10/24 16:02 18:03 Temperature 97.8 F Pulse Rate 67 Pulse Rate [ 60 Sitting] Pulse Rate [ 70 Standing] Pulse Rate [ 58 L Supine] Respiratory 20 Rate Blood Pressure 101/59 Blood Pressure 109/65 [Sitting] Blood Pressure 107/63 [Standing] Blood Pressure 104/59 [Supine] O2 Sat by Pulse 99 Oximetry Medical Decision Making - Medical Decision Making Was pt. sent in by a medical professional or institution (, PA, CORPORATE COUNSELOR, urgent care, hospital, or long-term...) When possible be specific @ -No Did you speak to anyone other than the patient for history (EMS, parent, family, police, friend...)? What history was obtained from this source @ -No Did you review nursing and triage notes (agree or disagree)? Why? @ -I reviewed and agree with nursing and triage notes Were old charts reviewed (outside hosp., previous admission, EMS record, old EKG, old radiological studies, urgent care reports/EKG's, long-term records)? Report findings @ -I reviewed EKGs from 2016 as well as from 2023 which revealed sinus bradycardia at that time. Differential Diagnosis (chest pain, altered mental status, abdominal pain women, abdominal pain men, vaginal bleeding, weakness, fever, dyspnea, syncope, headache, dizziness, GI bleed, back pain, seizure, CVA, palpatations, mental health, musculoskeletal)? @ -Differential Dizziness: Benign paroxysmal positional Vertigo, Menieres disease, otitis media, acoustic neuroma, vertebrobasilar insufficiency, cerebellar stroke, encephalitis, hypovolemic, arrhythmia, coronary artery syndrome, anemia, this is not meant to be an all-inclusive list EKG interpreted by me (3pts min.). @ -As above X-rays interpreted by me (1pt min.). @ -None done CT interpreted by me (1pt min.). @ -None done U/S interpreted by me (1pt. min.). @ -None done What testing was considered but not performed or refused? (CT, X-rays, U/S, labs)? Why? @ -Considered CT brain however as patient is currently at baseline, with no focal deficits, we both agreed to defer at this time. Patient has a history of lightheadedness/dizziness episodes. Seems less likely to be vertigo. What meds were considered but not given or refused? Why? @ -None Did you discuss the management of the patient with other professionals (nancy mendez i.e. , PA, CORPORATE COUNSELOR, lab, RT, psych nurse, oncology social work, detective precinct, teacher, finance officer, ed case manager)? Give summary @ -No Was smoking cessation discussed for >3mins.? @ -No Was critical care preformed (if so, how long)? @ -No Were there social determinants of health that impacted care today? How? (Homelessness, low income, unemployed, alcoholism, drug addiction, transportation, low edu. Level, literacy, decrease access to med. care, fci, rehab)? @ -No Was there de-escalation of care discussed even if they declined (Discuss DNR or withdrawal of care, Hospice)? DNR status @ -No What co-morbidities impacted this encounter? (DM, HTN, Smoking, COPD, CAD, Cancer, CVA, ARF, Chemo, Hep., AIDS, mental health diagnosis, sleep apnea, morbid obesity)? @ -None Was patient admitted / discharged? Hospital course, mention meds given and route, prescriptions, significant lab abnormalities, going to OR and other pertinent info. @ -Patient presents emergency department complaining of an episode of what seems to be near syncope and lightheadedness. Has no complaints at this time currently. Has a history of this. Denies any trauma. Will obtain basic labs as patient has been outside in the hot weather over the weekend camping as well as recently for the republican that he was at. I do suspect this is likely related to dehydration and his chronic symptoms. He has no obvious acute symptoms at this time. Will receive 1 L fluid bolus as well as a empiric dose of meclizine. Will also obtain screening EKG as well as labs. Patient in agreement this plan. Vital signs within acceptable limits. EKG shows no signs of acute ischemia.Patient's laboratory studies returned remarkable for hypokalemia. Mild lactic acidosis of 2.6. Mild creatinine kinase elevation at 319. Viral swabs negative. On reevaluation, patient is resting comfortably at this time. Has no symptoms. Negative orthostatic vital signs. I did recommend an additional 500 cc fluid bolus as well as additional supplementation of potassium. I did offer admission however patient would like to go home which I think is reasonable. I will provide him with 2-day prescription of potassium tablets as well as a prescr iption to obtain repeat lab draw on Saturday or of this week to check his potassium level. He was in agreement this plan. Discussed good hydration strategies. Recommended follow-up with his PCP. Labs essentially show dehydration. Patient was in agreement this plan. I will provide the patient with a prescription for potassium. I instructed the patient to follow up with their PCP in the next 1-3 days.. I explained that the patient should return to the emergency department if they experience any worsening symptoms. Strict return precautions were discussed with the patient. The patient expressed understanding of these instructions. I answered all questions that the patient had. The patient was discharged home in good condition with their prescriptions and follow up information. Undiagnosed new problem with uncertain prognosis? @ -No Drug Therapy requiring intensive monitoring for toxicity (Heparin, Nitro, Insulin, Cardizem)? @ -No Were any procedures done? @ -No Diagnosis/symptom? @ -Hypokalemia, dehydration, lightheadedness Acute, or Chronic, or Acute on Chronic? @ -Acute Uncomplicated (without systemic symptoms) or Complicated (systemic symptoms)? @ -Complicated Side effects of treatment? @ -None Exacerbation, Progression, or Severe Exacerbation] @ -No Poses a threat to life or bodily function? @ -Unlikely - Lab Data Result diagrams: 05/10/24 16:48 05/10/24 16:48 Lab Results 05/10/24 05/10/24 05/10/24 Range/Units 16:48 16:48 16:48 WBC 6.1 (3.8-10.6) k/uL RBC 4.23 L (4.30-5.90) m/uL Hgb 13.2 (13.0-17.5) gm/dL Hct 39.3 (39.0-53.0) % MCV 92.7 (80.0-100.0) fL MCH 31.1 (25.0-35.0) pg MCHC 33.6 (31.0-37.0) g/dL RDW 12.7 (11.5-15.5) % Plt Count 223 (150-450) k/uL MPV 8.6 Neutrophils % 70 % Lymphocytes % 20 % Monocytes % 6 % Eosinophils % 3 % Basophils % 0 % Neutrophils # 4.3 (1.3-7.7) k/uL Lymphocytes # 1.2 (1.0-4.8) k/uL Monocytes # 0.3 (0-1.0) k/uL Eosinophils # 0.2 (0-0.7) k/uL Basophils # 0.0 (0-0.2) k/uL Sodium 140 (137-145) mmol/L Potassium 2.9 L (3.5-5.1) mmol/L Chloride 110 H (98-107) mmol/L Carbon Dioxide 21 L (22-30) mmol/L Anion Gap 9 mmol/L BUN 15 (9-20) mg/dL Creatinine 0.95 (0.66-1.25) mg/dL Est GFR (CKD-EPI)AfAm >90 (>60 ml/min/1.73 sqM) Est GFR (CKD-EPI)NonAf 86 (>60 ml/min/1.73 sqM) Glucose 174 H (74-99) mg/dL Lactic Ac Sepsis Rflx Plasma Lactic Acid Andres 2.6 H* (0.7-2.0) mmol/L Calcium 8.9 (8.4-10.2) mg/dL Total Bilirubin 1.1 (0.2-1.3) mg/dL AST 29 (17-59) U/L ALT 26 (4-49) U/L Alkaline Phosphatase 68 (38-126) U/L Creatine Kinase 319 H (55-170) U/L Total Protein 6.0 L (6.3-8.2) g/dL Albumin 3.8 (3.5-5.0) g/dL Influenza Type A (PCR) (Not Detectd) Influenza Type B (PCR) (Not Detectd) RSV (PCR) (Not Detectd) SARS-CoV-2 (PCR) (Not Detectd) 07/14/24 07/14/24 Range/Units 16:48 18:05 WBC (3.8-10.6) k/uL RBC (4.30-5.90) m/uL Hgb (13.0-17.5) gm/dL Hct (39.0-53.0) % MCV (80.0-100.0) fL MCH (25.0-35.0) pg MCHC (31.0-37.0) g/dL RDW (11.5-15.5) % Plt Count (150-450) k/uL MPV Neutrophils % % Lymphocytes % % Monocytes % % Eosinophils % % Basophils % % Neutrophils # (1.3-7.7) k/uL Lymphocytes # (1.0-4.8) k/uL Monocytes # (0-1.0) k/uL Eosinophils # (0-0.7) k/uL Basophils # (0-0.2) k/uL Sodium (137-145) mmol/L Potassium (3.5-5.1) mmol/L Chloride (98-107) mmol/L Carbon Dioxide (22-30) mmol/L Anion Gap mmol/L BUN (9-20) mg/dL Creatinine (0.66-1.25) mg/dL Est GFR (CKD-EPI)AfAm (>60 ml/min/1.73 sqM) Est GFR (CKD-EPI)NonAf (>60 ml/min/1.73 sqM) Glucose (74-99) mg/dL Lactic Ac Sepsis Rflx Y Plasma Lactic Acid Andres (0.7-2.0) mmol/L Calcium (8.4-10.2) mg/dL Total Bilirubin (0.2-1.3) mg/dL AST (17-59) U/L ALT (4-49) U/L Alkaline Phosphatase (38-126) U/L Creatine Kinase (55-170) U/L Total Protein (6.3-8.2) g/dL Albumin (3.5-5.0) g/dL Influenza Type A (PCR) Not Detected (Not Detectd) Influenza Type B (PCR) Not Detected (Not Detectd) RSV (PCR) Not Detected (Not Detectd) SARS-CoV-2 (PCR) Not Detected (Not Detectd) - EKG Data -: EKG Interpreted by Me EKG Comments: 12-lead Electrocardiogram Interpretation Note EKG was reviewed and interpreted by myself. 12-lead ECG performed at 1614 is interpreted by me as revealing sinus bradycardia at a rate of 56 beats per minute. Helm is normal. IL interval is 200 ms, QRS durations 100 ms, QTc is 413 ms.. There were no ST or T wave abnormalities to suggest myocardial ischemia or injury. R wave progression across the precordium was satisfactory. By my interpretation this EKG is non-diagnostic for acute ischemia. Patient has a history of sinus bradycardia as evident by prior EKG showing similar heart rates from March 2024 as well as from April 2016. 12-lead Electrocardiogram Interpretation Note EKG was reviewed and interpreted by myself. 12-lead ECG performed at 1658 is interpreted by me as revealing sinus bradycardia at a rate of 58 beats per minute. Helm is normal. IL interval is 200 ms, QRS duration is 103 ms, QTc is 419 ms.. There were no ST or T wave abnormalities to suggest myocardial ischemia or injury. R wave progression across the precordium was satisfactory. By my interpretation this EKG is non-diagnostic for acute ischemia. No dynamic changes when compared with EKG from earlier. Disposition Clinical Impression: Dehydration, Hypokalemia, Lightheaded Disposition: HOME SELF-CARE Condition: Good Instructions (If sedation given, give patient instructions): Dizziness (ED) Additional Instructions: Obtain repeat potassium on 05/13 or 05/14 Prescriptions: Potassium Chloride ER [K-Dur 20] 20 meq PO DAILY 2 Days #2 tab Is patient prescribed a controlled substance at d/c from ED?: No Referrals: Alfonso Ibarra DO [Primary Care Provider] - 1-2 days Time of Disposition: 19:23
[2024-05-10] MEDS: SODIUM CHLORIDE 0.9% 1,000 ML IV STA (16:50)
[2024-05-10] MEDS: MECLIZINE 12.5 MG TAB PO STA (16:50)
[2024-05-10 17:01] LABS: Basophils % (A) 0 %; Eosinophils # (A) 0.2 k/uL (0-0.7); Eosinophils % (A) 3 %; HCT 39.3 % (39.0-53.0); HGB 13.2 gm/dL (13.0-17.5); Lymphocytes # (A) 1.2 k/uL (1.0-4.8); Lymphocytes % (A) 20 %; MCH 31.1 pg (25.0-35.0); MCHC 33.6 g/dL (31.0-37.0); MCV 92.7 fL (80.0-100.0); Mean Platelet Volume 8.6; Monocytes # (A) 0.3 k/uL (0-1.0); Monocytes % (A) 6 %; Neutrophils # (A) 4.3 k/uL (1.3-7.7); Neutrophils % (A) 70 %; Platelet Count 223 k/uL (150-450); RBC 4.23 m/uL (4.30-5.90); RDW 12.7 % (11.5-15.5); WBC 6.1 k/uL (3.8-10.6)
[2024-05-10 17:24] LABS: ALT 26 U/L (4-49); AST 29 U/L (17-59); African American GFR (CKD) >90 (>60 ml/min/1.73 sqM); Albumin 3.8 g/dL (3.5-5.0); Alkaline Phosphatase 68 U/L (38-126); Anion Gap 9 mmol/L; Blood Urea Nitrogen 15 mg/dL (9-20); Calcium 8.9 mg/dL (8.4-10.2); Carbon Dioxide 21 mmol/L (22-30); Chloride 110 mmol/L (98-107); Creatine Kinase 319 U/L (55-170); Glucose 174 mg/dL (74-99); Non-African American GFR(CKD) 86 (>60 ml/min/1.73 sqM); Potassium 2.9 mmol/L (3.5-5.1); Sodium 140 mmol/L (137-145); Total Bilirubin 1.1 mg/dL (0.2-1.3)
[2024-05-10 18:06] VITALS: BP 104/59; PULSE 58
[2024-05-10] MEDS: POTASSIUM CHLORIDE ER 20 MEQ TAB.ER PO STA (18:16)
[2024-05-10] MEDS: SODIUM CHLORIDE 0.9% 500 ML 500 ML IV STA (19:01)
[2024-05-10] MEDS: DEXAMETHASONE SOD PHOSPHATE 4 MG/ML 1 ML VIAL IVP STA (19:38)
== END 2024-05-10 20:10 | disposition home or self-care (01) ==
LOC: EC 16:00
DX: E86.0 Dehydration (principal); E87.6 Hypokalemia; E87.20 Acidosis, unspecified; R00.1 Bradycardia, unspecified; F17.200 Nicotine dependence, unspecified, uncomplicated; Z88.1 Allergy status to other antibiotic agents; Z88.8 Allergy status to other drugs, medicaments and biological substances
CPT/HCPCS: 93005; 80053; 82550; 83605; 85025; 87636; 99284; 96374; 96361 ×2; J1100; 36415

== ENCOUNTER → 2024-05-18 | Outpatient (CLI) | payer MEDICARE ==
[2024-05-18 18:24] LABS: Basophils # (A) 0.06 X 10*3/uL (0.00-0.10); Basophils % (A) 0.9 %; Eosinophils # (A) 0.25 X 10*3/uL (0.04-0.35); Eosinophils % (A) 3.8 %; HCT 42.6 % (39.6-50.0); HGB 14.2 g/dL (13.0-17.0); Lymphocytes # (A) 1.79 X 10*3/uL (0.90-5.00); MCH 30.4 pg (27.0-32.0); MCHC 33.3 g/dL (32.0-37.0); MCV 91.2 FL (80.0-97.0); Mean Platelet Volume 10.7 FL (9.5-12.2); Monocytes # (A) 0.65 X 10*3/uL (0.20-1.00); Monocytes % (A) 9.8 %; NRBC Per 100 WBC 0 X 10*3/uL (0.00-0.01); Neutrophils # (A) 3.87 X 10*3/uL (1.80-7.70); Neutrophils % (A) 58.2 %; Platelet Count 264 X 10*3/uL (140-440); RBC 4.67 X 10*6/uL (4.40-5.60); RDW 12.7 % (11.5-14.5); WBC 6.64 X 10*3/uL (4.50-10.00)
[2024-05-18 19:10] LABS: ALT 32 U/L (10-49); AST 23 U/L (14-35); Albumin 4.5 g/dL (3.8-4.9); Albumin/Globulin Ratio 2.14 Ratio (1.60-3.17); Alkaline Phosphatase 91 U/L (41-126); BUN/Creat Ratio 15.56 Ratio (12.00-20.00); Calcium 9.1 mg/dL (8.7-10.3); Carbon Dioxide 26.2 mmol/L (21.6-31.8); Chloride 106 mmol/L (96-109); Chol/HDL Ratio 2.77 Ratio; Creatine Kinase 239 U/L (35-257); Globulin 2.1 g/dL (1.6-3.3); Glucose 96 mg/dL (70-110); LDL Cholesterol,Calculated 67.4 mg/dL (0.0-131.0); Magnesium 2.1 mg/dL (1.5-2.4); Potassium 3.5 mmol/L (3.5-5.5); Sodium 144 mmol/L (135-145); Total Bilirubin 1.2 mg/dL (0.3-1.2); Total Protein 6.6 g/dL (6.2-8.2)
== END | disposition home or self-care (01) ==
LOC: LABWHC1 12:43
PROVIDERS: ATTEND Internal Medicine
DX: I10 Essential (primary) hypertension (principal); E78.5 Hyperlipidemia, unspecified
CPT/HCPCS: 36415; 80053; 80061; 82550; 83735; 84443; 85025

== ENCOUNTER → 2024-05-23 | Outpatient (CLI) | payer MEDICARE ==
[2024-05-24 10:21] LABS: Blood Urea Nitrogen 15.3 mg/dL (9.0-27.0); Calcium 8.8 mg/dL (8.7-10.3); Carbon Dioxide 22.9 mmol/L (21.6-31.8); Chloride 109 mmol/L (96-109); Glucose 106 mg/dL (70-110); Potassium 3.8 mmol/L (3.5-5.5); Sodium 143 mmol/L (135-145)
== END | disposition home or self-care (01) ==
LOC: LABWHC1 10:22
PROVIDERS: ATTEND Internal Medicine
DX: I10 Essential (primary) hypertension (principal)
CPT/HCPCS: 36415; 80048; 83735